=== PATIENT | female | born 1975 | race Caucasian/White ===

== ENCOUNTER → 2020-04-13 11:38 | Outpatient (BNVA) | payer OTHER, SELFPAY | PROVIDERS: PCP Internal Medicine; Visit Provider Advanced Practice Midwife | DX: Z30.42 Encounter for surveillance of injectable contraceptive (principal) | CPT/HCPCS: 96372; 99211; J1050 ==

== ENCOUNTER → 2020-04-14 13:28 | Outpatient (BNVA) | payer OTHER, SELFPAY | PROVIDERS: PCP Internal Medicine; Visit Provider Physician Assistant | DX: M77.12 Lateral epicondylitis, left elbow (principal) | CPT/HCPCS: 20551; 99202; J1020 ==

== ENCOUNTER 2020-04-26 10:41 | Outpatient (REF) | payer OTHER, SELFPAY ==
--- NOTE | 2020-04-26 10:47 | XR_ITS ---
EXAMINATION: XR HIP, LEFT CLINICAL INFORMATION: Left hip pain. COMPARISON: 03/29/2014 TECHNIQUE: 2 views of the left hip. FINDINGS: There is no evidence of acute fracture or dislocation of the left hip. Left hip joint space is maintained. No significant spurring is appreciated. No lytic or sclerotic lesions are seen involving the left femoral head. No significant sacroiliac joint abnormality is appreciated. XR/XR hip LT min 2V IMPRESSION: No significant bony abnormality of the left hip identified.
== END 2020-04-26 10:42 | disposition home or self-care (01) ==
LOC: HO.XRAY 10:41
PROVIDERS: Visit Provider Physician Assistant
DX: M25.552 Pain in left hip (principal)
CPT/HCPCS: 73502

== ENCOUNTER → 2020-05-18 13:25 | Outpatient (BNVA) | payer OTHER, SELFPAY | PROVIDERS: PCP Internal Medicine; Visit Provider Obstetrics & Gynecology | DX: Z76.89 Persons encountering health services in other specified circumstances (principal) ==

== ENCOUNTER 2020-06-24 04:53 | Emergency (ER) | payer OTHER, SELFPAY ==
[2020-06-24 05:09] VITALS: BP 138/89; PULSE 99; RESP 18; TEMP 37.1; O2SAT 98; BMI 41.5
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
[2020-06-24] MEDS: Amoxicillin/Potassium Clav 875 MG TABLET PO (05:33)
[2020-06-24 05:35] VITALS: BP 138/89; PULSE 99; RESP 18; TEMP 37.1; O2SAT 98
== END 2020-06-24 05:50 | disposition home or self-care (01) ==
PROVIDERS: Emergency Provider Student in an Organized Health Care Education/Training Program; PCP Internal Medicine
DX: S00.502A Unspecified superficial injury of oral cavity, initial encounter (principal); X58.XXXA Exposure to other specified factors, initial encounter; Y93.9 Activity, unspecified; Y92.9 Unspecified place or not applicable; Y99.9 Unspecified external cause status
CPT/HCPCS: 99283; 99284

== ENCOUNTER → 2020-07-06 11:03 | Outpatient (BNVA) | payer OTHER, SELFPAY | PROVIDERS: Visit Provider Advanced Practice Midwife | DX: Z30.42 Encounter for surveillance of injectable contraceptive (principal) | CPT/HCPCS: 96372; 99211 ==

== ENCOUNTER 2020-07-24 12:02 | Outpatient (REF) | payer OTHER, SELFPAY ==
--- NOTE | ~2020-07-24 | MM_ITS ---
EXAMINATION: MM SCREENING DIGITAL BREAST TOMOSYNTHESIS, BILATERAL CLINICAL INFORMATION: Screening. Asymptomatic. The lifetime risk of breast cancer based on the Tyrer-Cuzick Model is 9%. COMPARISON: Mammography: 07/19/2019, 05/25/2018 (baseline) TECHNIQUE: Digital breast tomosynthesis is performed in both the craniocaudal and mediolateral oblique views along with computer-aided detection (CAD). Synthesized 2D images are generated from the tomosynthesis. FINDINGS: There are scattered areas of fibroglandular density (ACR BI-RADS breast composition Category b). There are no significant masses, abnormal calcifications, or other abnormalities. Parenchymal pattern is similar to prior studies. No developing density. No significant changes. MM/MM tomosynthesis screening BI IMPRESSION: No mammographic evidence of malignancy. ASSESSMENT: BI-RADS 1: Negative RECOMMENDATION: Routine annual mammography screening. This patient's information was entered into a reminder system with a target due date for their next mammogram.
== END 2020-07-24 12:03 | disposition home or self-care (01) ==
LOC: HO.MAMMO 12:02
PROVIDERS: PCP Internal Medicine; Visit Provider Internal Medicine
DX: Z12.31 Encounter for screening mammogram for malignant neoplasm of breast (principal)
CPT/HCPCS: 77063; 77067

== ENCOUNTER 2020-07-28 09:06 | Outpatient (REF) | payer OTHER, SELFPAY ==
[2020-07-28 10:11] LABS: MANUAL DIFF FLAG NO
[2020-07-28 10:20] LABS: Basophils Percent Auto 0.1 % (0-2); Eosinophils Absolute Auto 0.2 X10*3/uL (0.0-0.4); Eosinophils Percent Auto 2.9 % (0-4); Hematocrit 43.7 % (37-47); Hemoglobin 14.4 g/dl (12.0-16.0); Imm Gran Abs Auto 0.01 X10*3/uL (0.00-0.03); Imm Gran Pct Auto 0.1 % (0.0-0.4); Lymphocytes Absolute Auto 1.8 X10*3/uL (1.2-4.9); Mean Corpuscular Hemoglobin 31.1 pg (27.0-33.0); Mean Corpuscular Volume 94.4 fL (80-98); Mean Platelet Volume 10.4 fL (9.4-12.3); Monocytes Absolute Auto 0.4 X10*3/uL (0.1-1.2); Monocytes Percent Auto 5.9 % (2-11); Platelet Count 345 X10*3/uL (160-400); Red Blood Count 4.63 X10*6/uL (4.20-5.50); Red Cell Distribution Width 13.4 % (11.0-16.0); White Blood Count 7.5 X10*3/uL (4.8-10.8)
[2020-07-28 10:46] LABS: Alanine Aminotransferase 21 U/L (0-31); Albumin Level 4.1 g/dL (3.5-5.0); Alkaline Phosphatase 71 U/L (39-117); Anion Gap 12 (12-20); Aspartate Amino Transferase 18 U/L (5-31); Blood Urea Nitrogen 15 mg/dL (9-16); Calcium 9.2 mg/dL (8.4-10.2); Carbon Dioxide 22 mmol/L (22-29); Chloride 107 mmol/L (96-108); Cholesterol 137 mg/dL; Estimated Glomerular Filt Rate 59; Glucose Random 97 mg/dL (60-115); HDL Cholesterol 40 mg/dL; LDL Cholesterol Calculated 87 mg/dl; Potassium 4.3 mmol/L (3.3-5.1); Sodium 137 mmol/L (135-145); Total Protein 7.3 g/dL (6.5-8.0); Triglycerides 54 mg/dL
[2020-07-28 10:57] LABS: Glucose Urine UA NEG (NEG); Leukocyte Esterase Urine 2+ (NEG); Nitrite Urine NEG (NEG); PH 5.5 (5.0-8.0); Specific Gravity - Urine 1.025 (1.005-1.025); Urine Blood TRACE (NEG); Urine Ketones NEG (NEG); Urine Protein NEG (NEG-TRACE)
[2020-07-28 11:00] LABS: Appearance Urine CLOUDY; Color Urine YELLOW
[2020-07-28 11:09] LABS: Thyroid Stimulating Hormone 1.59 uIU/mL (0.32-4.0); Vitamin D 25-OH Total 17.8 ng/mL (>30)
[2020-07-28 11:17] LABS: Bacteria Urine 2+ /LPF; Squamous Epithelial Cell Urine 3+ /LPF
[2020-07-28 11:21] LABS: Folate 18.1 ng/mL (> or = 4.0); Vitamin B12 612 pg/mL (200-900)
== END 2020-07-28 09:07 | disposition home or self-care (01) ==
LOC: HO.LAB 09:06
PROVIDERS: PCP Internal Medicine; Visit Provider Internal Medicine
DX: M72.2 Plantar fascial fibromatosis (principal); E66.01 Morbid (severe) obesity due to excess calories; Z68.41 Body mass index [BMI] 40.0-44.9, adult; E78.00 Pure hypercholesterolemia, unspecified
CPT/HCPCS: 36415; 80053; 80061; 81001; 82306; 82607; 82746; 84443; 85025

== ENCOUNTER → 2020-08-03 10:51 | Outpatient (BNVA) | payer OTHER, SELFPAY | PROVIDERS: PCP Internal Medicine; Visit Provider Obstetrics & Gynecology | DX: Z30.9 Encounter for contraceptive management, unspecified (principal) | CPT/HCPCS: Q3014 ==

== ENCOUNTER → 2020-09-25 09:53 | Outpatient (BNVA) | payer OTHER, SELFPAY | PROVIDERS: PCP Internal Medicine; Visit Provider Advanced Practice Midwife | DX: Z30.9 Encounter for contraceptive management, unspecified (principal) | CPT/HCPCS: 96372; 99211; J1050 ==

== ENCOUNTER → 2020-12-18 12:50 | Outpatient (BNVA) | payer OTHER, SELFPAY | PROVIDERS: PCP Internal Medicine; Visit Provider Obstetrics & Gynecology | DX: Z30.9 Encounter for contraceptive management, unspecified (principal) | CPT/HCPCS: 96372 ==

== ENCOUNTER → 2021-03-08 12:50 | Outpatient (BNVA) | payer OTHER, SELFPAY | PROVIDERS: PCP Internal Medicine; Visit Provider Obstetrics & Gynecology | DX: Z30.42 Encounter for surveillance of injectable contraceptive (principal) | CPT/HCPCS: 96372; 99211 ==

== ENCOUNTER 2021-03-14 10:00 | Outpatient (RCR) | payer OTHER, SELFPAY ==
[2021-03-07 10:09] VITALS: BP 156/70; PULSE 78; O2SAT 99
--- NOTE | 2021-03-07 10:55 | MHC.PT.EP ---
[facility] [place] Office [place] Office [place] Office [address] Christine Barrera [address] [phone] F: [phone] F: [phone] F: [phone] F: [phone] Physical Therapy Plan of Care Date of Evaluation: Date of Surgery: Diagnosis: dizziness Assessment: 45 y/o F referred to PT with dizziness. Of note, dizziness started sometime after fabricio COVID. Describes dizziness as room spinning and like on an amusement park ride spinning in a kenaitze that lasts a few minutes with (+) nausea, no vomiting. Currently able to perform ADL s but cautiously. Examination shows normal cervical AROM, normal saccades/smooth pursuit, (-) VBI, balance WNL, 23/24 DGI with use of rail on stairs, and positive for sx in L [place] but no nysatgmus seen. She was treated with Al maneuver and will f/u to re-assess for BPPV. Recommend PT 2-3x/week for 4 weeks to address BPPV and optimize functional mobility. Frequency and Duration: The patient will be seen 3x/week for 4 weeks Short Term Goals: Heel Varnisher Goals: Pt will be (-) for nystagmus of reports of vertigo in all diagnostic directions B to resolutions of BPPV in 4 weeks Tolerate position changes without complaints vertigo to improve safety and return to pre-onset level Pt to be able to functionally move in all planes without provocation of dizziness and return to PLOF in 4 weeks Pt to be educated on sx and indications to return to therapy when needed in 4 weeks Treatment Plan: Modalities to reduce pain, spasms and effusion. Manual therapy to restore motion and function. Therapeutic exercise to improve strength and flexibility. Neuromuscular re-education for posture and balance. Therapeutic activities to return to functional activities of daily living. Electronically signed by: Verna Linares PT Please sign and return to therapist. Thank you for your referral.
--- NOTE | 2021-04-17 14:58 | MHC.PT.DC ---
[facility] [place] Office [place] Office [place] Office [address] Christine Barrera [address] [phone] F: [phone] F: [phone] F: [phone] F: [phone] Physical Therapy Discharge Report Diagnosis: dizziness Date of Surgery: Date of Evaluation: 03/07/21 Date of Discharge: 04/17/21 Treatments to Date: 2 Cancellations to Date: 0 No Shows to Date: 0 Discharge Status: Achieved Goals Improved Function Discharge Summary: Pt was negative for BPPV last treatment and we kept chart open for 30 days in case of recurrence. She is now d/c Electronically signed by: Verna Linares PT Please sign and return to therapist. Thank you for your referral.
== END 2021-04-17 14:58 | disposition home or self-care (01) ==
LOC: HO.PT 10:00
PROVIDERS: PCP Internal Medicine; Visit Provider Internal Medicine
DX: R42 Dizziness and giddiness (principal)
CPT/HCPCS: 95992; 97161

== ENCOUNTER 2021-04-26 13:51 | Outpatient (REF) | payer OTHER, SELFPAY ==
[2021-04-26 14:17] LABS: MANUAL DIFF FLAG NO
[2021-04-26 14:45] LABS: Appearance Urine CLEAR; Color Urine YELLOW; Glucose Urine UA NEG (NEG); Leukocyte Esterase Urine NEG (NEG); Nitrite Urine NEG (NEG); Specific Gravity - Urine >= 1.030 (1.005-1.025); Urine Blood TRACE (NEG); Urine Ketones NEG (NEG); Urine Protein NEG (NEG-TRACE)
[2021-04-26 14:49] LABS: Basophils Percent Auto 0.2 % (0-2); Eosinophils Absolute Auto 0.1 X10*3/uL (0.0-0.4); Eosinophils Percent Auto 1.4 % (0-4); Hematocrit 45.6 % (37.0-47.0); Hemoglobin 14.7 g/dl (12.0-16.0); Imm Gran Abs Auto 0.03 X10*3/uL (0.00-0.03); Imm Gran Pct Auto 0.3 % (0.0-0.4); Lymphocytes Absolute Auto 2.8 X10*3/uL (1.2-4.9); Lymphocytes Percent Auto 31.3 % (20-40); Mean Corpuscular HGB Conc 32.2 g/dl (31.0-35.0); Mean Corpuscular Hemoglobin 30.4 pg (27.0-33.0); Mean Corpuscular Volume 94.2 fL (80.0-98.0); Mean Platelet Volume 9.9 fL (9.4-12.3); Monocytes Absolute Auto 0.6 X10*3/uL (0.1-1.2); Monocytes Percent Auto 6.4 % (2-11); Neutrophils Absolute Auto 5.5 x10*3/uL (2.0-8.3); Neutrophils Percent Auto 60.4 % (45-73); Platelet Count 365 X10*3/uL (160-400); Red Blood Count 4.84 X10*6/uL (4.20-5.50); Red Cell Distribution Width 12.7 % (11.0-16.0); White Blood Count 9.1 X10*3/uL (4.8-10.8)
[2021-04-26 15:01] LABS: WBC Urine 0-2 /HPF (0-4)
[2021-04-26 15:02] LABS: Bacteria Urine TRACE /LPF; Mucus Urine TRACE /LPF; Squamous Epithelial Cell Urine 1+ /LPF
[2021-04-26 15:09] LABS: Alanine Aminotransferase 18 U/L (0-31); Albumin Level 4.2 g/dL (3.5-5.0); Alkaline Phosphatase 82 U/L (39-117); Anion Gap 14 (12-20); Aspartate Amino Transferase 16 U/L (5-31); Blood Urea Nitrogen 14 mg/dL (9-16); Calcium 9.6 mg/dL (8.4-10.2); Carbon Dioxide 21 mmol/L (22-29); Chloride 108 mmol/L (96-108); Estimated Glomerular Filt Rate 55; Glucose Random 83 mg/dL (60-115); Potassium 3.9 mmol/L (3.3-5.1); Sodium 139 mmol/L (135-145); Total Protein 7.6 g/dL (6.5-8.0)
[2021-04-26 15:32] LABS: Free T4 (Free Thyroxine) 0.87 ng/dL (0.71-1.85); Thyroid Stimulating Hormone 1.25 uIU/mL (0.32-4.0)
[2021-04-26 15:47] LABS: Folate 13.9 ng/mL (> or = 4.0); Vitamin B12 480 pg/mL (200-900)
[2021-04-26 15:53] LABS: Erythrocyte Sedimentation Rate 13 MM/HR (0-20)
== END 2021-04-26 13:52 | disposition home or self-care (01) ==
LOC: HO.LAB 13:51
PROVIDERS: PCP Internal Medicine; Visit Provider Internal Medicine
DX: R42 Dizziness and giddiness (principal)
CPT/HCPCS: 36415; 80053; 81001; 82607; 82746; 84439; 84443; 85025; 85652

== ENCOUNTER 2021-06-08 07:10 | Outpatient (REF) | payer OTHER, SELFPAY ==
--- NOTE | ~2021-06-08 | XR_ITS ---
EXAMINATION: XR HIP, RIGHT CLINICAL INFORMATION: Pain COMPARISON: Previous left hip x-ray most recent April 2020 and right hip x-ray January 2013 TECHNIQUE: Two views of the right hip. FINDINGS: Bone alignment is normal. No fracture or dislocation is seen. There are bilateral superior lateral acetabular osteophyte. Hip joints are otherwise normal. Soft tissues are normal. XR/XR hip RT w [id number] IMPRESSION: Bilateral superior lateral acetabular osteophytes.
== END 2021-06-08 07:11 | disposition home or self-care (01) ==
LOC: HO.HOSX 07:10
PROVIDERS: Visit Provider Physician Assistant
DX: M70.61 Trochanteric bursitis, right hip (principal); M25.551 Pain in right hip; M54.16 Radiculopathy, lumbar region; M79.7 Fibromyalgia; G25.81 Restless legs syndrome; E66.9 Obesity, unspecified; E55.9 Vitamin D deficiency, unspecified; F41.8 Other specified anxiety disorders; Z68.41 Body mass index [BMI] 40.0-44.9, adult; Z88.1 Allergy status to other antibiotic agents
CPT/HCPCS: 73502; 99202; J1040

== ENCOUNTER → 2021-06-13 12:56 | Outpatient (BNVA) | payer OTHER, SELFPAY | PROVIDERS: Visit Provider Advanced Practice Midwife | DX: Z30.42 Encounter for surveillance of injectable contraceptive (principal) | CPT/HCPCS: 96372; 99211 ==

== ENCOUNTER 2021-07-04 09:14 | Outpatient (REF) | payer OTHER, SELFPAY ==
[2021-07-04 10:38] LABS: Hematocrit 43.6 % (37.0-47.0); Hemoglobin 14.3 g/dl (12.0-16.0); Mean Corpuscular HGB Conc 32.8 g/dl (31.0-35.0); Mean Corpuscular Hemoglobin 31.2 pg (27.0-33.0); Mean Corpuscular Volume 95.2 fL (80.0-98.0); Mean Platelet Volume 9.7 fL (9.4-12.3); Platelet Count 348 X10*3/uL (160-400); Red Blood Count 4.58 X10*6/uL (4.20-5.50); Red Cell Distribution Width 13.2 % (11.0-16.0); White Blood Count 8.5 X10*3/uL (4.8-10.8)
[2021-07-04 10:52] LABS: Appearance Urine CLEAR; Color Urine YELLOW; Glucose Urine UA NEG (NEG); Leukocyte Esterase Urine NEG (NEG); Nitrite Urine NEG (NEG); Specific Gravity - Urine >= 1.030 (1.005-1.025); Urine Blood TRACE (NEG); Urine Ketones NEG (NEG); Urine Protein NEG (NEG-TRACE)
[2021-07-04 11:37] LABS: HCG Quantitative < 2 mIU/mL; TSH reflex Free T4 1.67 uIU/mL (0.32-4.0)
[2021-07-04 11:39] LABS: Bacteria Urine TRACE /LPF; Mucus Urine 2+ /LPF; Squamous Epithelial Cell Urine 1+ /LPF; WBC Urine 0 /HPF (0-4)
[2021-07-04 15:36] LABS: CT PCR NOT DETECTED (Not Detect.); NG PCR NOT DETECTED (Not Detect.)
[2021-07-10 09:06] LABS: HPV 16 RNA NOT DETECTED (NOT DETECTED); HPV mRNA E6/E7 rflx Detected (Not Detected)
== END 2021-07-04 09:15 | disposition home or self-care (01) ==
LOC: HO.LAB 09:14
PROVIDERS: PCP Internal Medicine; Visit Provider Obstetrics & Gynecology
DX: Z01.411 Encounter for gynecological examination (general) (routine) with abnormal findings (principal); Z11.51 Encounter for screening for human papillomavirus (HPV); N93.9 Abnormal uterine and vaginal bleeding, unspecified
CPT/HCPCS: 36415; 81001; 84443; 84702; 85027; 87491; 87591; 87624; 87625; 88142

== ENCOUNTER → 2021-07-20 08:54 | Outpatient (BNVA) | payer OTHER, SELFPAY | PROVIDERS: PCP Internal Medicine; Visit Provider Internal Medicine | DX: M25.551 Pain in right hip (principal); M54.16 Radiculopathy, lumbar region | CPT/HCPCS: 99202 ==

== ENCOUNTER 2021-07-25 11:50 | Outpatient (REF) | payer OTHER, SELFPAY | END 2021-07-25 11:51 | disposition home or self-care (01) | LOC: HO.LAB 11:50 | PROVIDERS: Visit Provider Obstetrics & Gynecology | DX: N93.9 Abnormal uterine and vaginal bleeding, unspecified (principal) | CPT/HCPCS: 88305 ==

== ENCOUNTER 2021-07-25 11:52 | Outpatient (REF) | payer OTHER, SELFPAY ==
--- NOTE | ~2021-07-25 | MM_ITS ---
EXAMINATION: MM SCREENING DIGITAL BREAST TOMOSYNTHESIS, BILATERAL CLINICAL INFORMATION: Screening. Asymptomatic. The lifetime risk of breast cancer based on the Tyrer-Cuzick Model is 12%. COMPARISON: Mammography: 07/24/2020, 07/19/2019, 05/25/2018 (baseline). TECHNIQUE: Digital breast tomosynthesis is performed in both the craniocaudal and mediolateral oblique views along with computer-aided detection (CAD). Synthesized 2D images are generated from the tomosynthesis. FINDINGS: There are scattered areas of fibroglandular density (ACR BI-RADS breast composition Category b). There are no significant masses, abnormal calcifications, or other abnormalities. Parenchymal pattern is similar to prior exams. There are some fine fibronodular densities which are stable. There is no architectural abnormality. The axilla and skin contours are unremarkable. MM/MM tomosynthesis screening BI IMPRESSION: No mammographic evidence of malignancy. ASSESSMENT: BI-RADS 2: Benign RECOMMENDATION: Routine annual mammography screening. This patient's information was entered into a reminder system with a target due date for their next mammogram.
== END 2021-07-25 11:53 | disposition home or self-care (01) ==
LOC: HO.MAMMO 11:52
PROVIDERS: PCP Internal Medicine; Visit Provider Internal Medicine
DX: N93.9 Abnormal uterine and vaginal bleeding, unspecified (principal); Z87.891 Personal history of nicotine dependence; Z12.31 Encounter for screening mammogram for malignant neoplasm of breast
CPT/HCPCS: 58100; 77063; 77067

== ENCOUNTER 2021-07-30 11:12 | Outpatient (REF) | payer OTHER, SELFPAY ==
--- NOTE | ~2021-07-30 | US_ITS ---
EXAMINATION: US PELVIS CLINICAL INFORMATION: Abnormal uterine and vaginal bleeding. COMPARISON: None TECHNIQUE: Ultrasound of the pelvis is performed using both transabdominal and transvaginal transducers along with Doppler. Transvaginal imaging is performed due to inadequate visualization transabdominally. FINDINGS: UTERUS: The uterus is anteverted, anteflexed and measures 7.2 cm in length, 3.3 cm in AP and 3.3 cm in transverse dimension. The double wall endometrial thickness is 0.3 cm. The uterus is smooth in contour and has normal myometrial echogenicity. No visible fibroid. There are small nabothian cysts seen in the cervix. ADNEXA: Both ovaries are visualized. There is normal color flow to the adnexa. There is no ovarian torsion. There is no pelvic ascites or fluid collection. Right ovary measures 1.9 x 1.4 x 1.2 cm and volume 1.7 mL. There is avascular small anechoic cyst measuring 1.1 x 1.0 x 1.2 cm. Previously right ovary measured 2.0 x 1.1 x 1.5 cm and volume 1.6 mL. Left ovary measures 2.0 x 1.8 x 1.6 cm and volume 3.0 mL. There is anechoic simple cyst measuring 1.2 x 0.9 x 0.6 cm. Previously left ovary measured 1.7 x 1.4 x 1.6 cm and volume 2.0 mL. US/US pelvic and transvaginal IMPRESSION: Bilateral ovarian simple cysts. The uterus is unremarkable. Small nabothian cysts seen in the cervix.
== END 2021-07-30 11:13 | disposition home or self-care (01) ==
LOC: HO.US 11:12
PROVIDERS: PCP Internal Medicine; Visit Provider Obstetrics & Gynecology
DX: N93.9 Abnormal uterine and vaginal bleeding, unspecified (principal)
CPT/HCPCS: 76830; 76856

== ENCOUNTER → 2021-08-09 11:16 | Outpatient (BNVA) | payer OTHER, SELFPAY | PROVIDERS: PCP Internal Medicine; Visit Provider Obstetrics & Gynecology | DX: N93.9 Abnormal uterine and vaginal bleeding, unspecified (principal); N84.0 Polyp of corpus uteri | CPT/HCPCS: 99212 ==

== ENCOUNTER 2021-08-22 10:23 | Outpatient (REF) | payer OTHER, SELFPAY ==
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
== END 2021-08-22 10:24 | disposition home or self-care (01) ==
LOC: HO.MRI 10:23
PROVIDERS: Visit Provider Internal Medicine
DX: M25.551 Pain in right hip (principal); M16.11 Unilateral primary osteoarthritis, right hip
CPT/HCPCS: 73721

== ENCOUNTER → 2021-08-31 11:05 | Outpatient (BNVA) | payer OTHER, SELFPAY | PROVIDERS: PCP Internal Medicine; Visit Provider Advanced Practice Midwife | DX: Z30.42 Encounter for surveillance of injectable contraceptive (principal) | CPT/HCPCS: 96372; 99211 ==

== ENCOUNTER 2021-09-07 07:53 | Day surgery (SDC) | payer OTHER, SELFPAY ==
[2021-09-03 09:34] VITALS: BMI 40.2
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
--- NOTE | 2021-09-07 08:10 | MHC.SHP ---
Pre-Procedural Eval Section A Date of Service: 09/07/21 The patient is an INPATIENT: No Changes since office visit: No Cold of Flu in the past 2 weeks, No New Medical Problems, No Changes in Medication and No Patient answered all questions The History & Physical has been completed within 30 days and I have reviewed it.: Yes Section B Chief Complaint: bleeding Allergies: Allergies Allergy/AdvReac Type Severity Reaction Status Date / Time bacitracin [BACITRACIN] Allergy Mild RASH Verified 08/13/21 11:05 Plan Diagnosis/Plan: Unchanged I have reviewed the history and physical and performed a pertinent physical examination on my patient. No changes have occurred unless specified.
[2021-09-07 08:43] VITALS: BMI 39.9
[2021-09-07 08:50] VITALS: BP 141/83; PULSE 81; RESP 16; TEMP 36.8; O2SAT 99
[2021-09-07 08:52] LABS: UPreg QC Valid YES; Urine Pregnancy NEGATIVE (NEGATIVE)
--- NOTE | 2021-09-07 08:58 | MHC.SHP ---
Pre-Procedural Eval Section A Date of Service: 09/07/21 Section B Chief Complaint: bleeding Allergies: Allergies Allergy/AdvReac Type Severity Reaction Status Date / Time bacitracin [BACITRACIN] Allergy Mild RASH Verified 09/07/21 08:46 Plan I have reviewed the history and physical and performed a pertinent physical examination on my patient. No changes have occurred unless specified.
[2021-09-07] MEDS: Lactated Ringers 1,000 ML 100 ML IVCONT (09:22)
--- NOTE | 2021-09-07 11:08 | P.BOP_ITS ---
Brief Operative Note Date of Service: 09/07/21 Post-op diagnosis: same (Normal endometrial cavity) Procedure: Hysteroscopy D&C, Polypectomy Surgeon: Lion Elizondo MD Anesthesia: MAC Was an Communications Department Head used for this Procedure?: No Estimated blood loss (mL): 0 Pathology: other (Endometrial Scrapping) Condition: stable Disposition: PACU
--- NOTE | 2021-09-07 11:08 | W.PM.OPN ---
Operative Note Operative Note Date of Service: 09/07/21 Narrative: Preop Diagnosis: Abnormal uterine bleeding possible endometrial polyp Operation: Diagnostic Hysteroscopy, Dilatation & Curettage Post Op Diagnosis: Normal endometrial cavity QBL: Minimal Anesthesia: MAC Surgeon: Lion Elizondo MD Route Service Representative: None Complication: None Pathology: Endometrial Scrapings Procedure: The patient was put in the dorsal lithotomy position, scrubbed, and draped in the usual manner. A sterile speculum was inserted in the patient's vagina. The anterior lip of the cervix was grasped with a single tooth tenaculum. The cervix was dilated up to 5 mm, then the scope was inserted in the patient's uterus. Inspection revealed Normal endometrial cavity, no evidence of endometrial polyp The diagnostic scope was used; sharp curettings was carried with minimal to moderate amount of tissues from the endocervix and endometrium. At the end of the procedure, all instruments were taken out of the patient uterine and vaginal cavity. The single tooth tenaculum was removed and homeostasis was assured using pressure,. The patient tolerated the procedure well and was transferred to the PACU in a stable condition.
[2021-09-07 11:20] VITALS: BP 135/85; PULSE 77; RESP 12; TEMP 36.2; O2SAT 97
[2021-09-07 11:25] VITALS: BP 142/91; PULSE 86; RESP 16; O2SAT 94
[2021-09-07] MEDS: oxyCODONE HCl Immed Release 5 MG TABLET PO (11:25)
[2021-09-07 11:30] VITALS: BP 129/90; PULSE 82; RESP 16; O2SAT 95
[2021-09-07 11:35] VITALS: BP 148/97; PULSE 72; RESP 16; O2SAT 97
[2021-09-07 11:50] VITALS: BP 129/53; PULSE 69; RESP 16; TEMP 36.3; O2SAT 98
== END 2021-09-07 13:15 | disposition home or self-care (01) ==
PROVIDERS: Nurse Practitioner; PCP Internal Medicine; Visit Provider Obstetrics & Gynecology
PROC: 0UDB8ZZ Extraction of Endometrium, Via Natural or Artificial Opening Endoscopic (ICD-10-PCS; CPT 58558; principal; 2021-09-07 09:30)
DX: N93.9 Abnormal uterine and vaginal bleeding, unspecified (principal); N84.0 Polyp of corpus uteri; J45.909 Unspecified asthma, uncomplicated; M79.7 Fibromyalgia; F41.8 Other specified anxiety disorders; Z86.16 Personal history of COVID-19; E55.9 Vitamin D deficiency, unspecified; E66.9 Obesity, unspecified; Z68.41 Body mass index [BMI] 40.0-44.9, adult; Z87.891 Personal history of nicotine dependence
CPT/HCPCS: 58558; 81025; 88305; J1100; J2250; J2405; J3010

== ENCOUNTER → 2021-09-20 15:17 | Outpatient (BNVA) | payer OTHER, SELFPAY | PROVIDERS: Visit Provider Obstetrics & Gynecology | DX: N93.9 Abnormal uterine and vaginal bleeding, unspecified (principal) | CPT/HCPCS: Q3014 ==

== ENCOUNTER → 2021-09-24 09:28 | Outpatient (BNVA) | payer OTHER, SELFPAY | PROVIDERS: PCP Internal Medicine; Visit Provider Internal Medicine | DX: M76.01 Gluteal tendinitis, right hip (principal); S73.191D Other sprain of right hip, subsequent encounter; S76.311D Strain of muscle, fascia and tendon of the posterior muscle group at thigh level, right thigh, subsequent encounter | CPT/HCPCS: 99212 ==

== ENCOUNTER 2021-10-15 11:00 | Outpatient (RCR) | payer OTHER, SELFPAY ==
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
== END 2021-10-24 12:37 | disposition home or self-care (01) ==
LOC: HO.PT 11:00
PROVIDERS: PCP Internal Medicine; Visit Provider Internal Medicine
DX: M54.16 Radiculopathy, lumbar region (principal)
CPT/HCPCS: 97110; 97112; 97140; 97162

== ENCOUNTER → 2021-11-19 10:01 | Outpatient (BNVA) | payer OTHER, SELFPAY | PROVIDERS: PCP Internal Medicine; Visit Provider Internal Medicine | DX: S73.101A Unspecified sprain of right hip, initial encounter (principal); S76.311D Strain of muscle, fascia and tendon of the posterior muscle group at thigh level, right thigh, subsequent encounter; M76.01 Gluteal tendinitis, right hip | CPT/HCPCS: 99212 ==

== ENCOUNTER → 2021-11-29 10:52 | Outpatient (BNVA) | payer OTHER, SELFPAY | PROVIDERS: PCP Internal Medicine; Visit Provider Obstetrics & Gynecology | DX: Z30.42 Encounter for surveillance of injectable contraceptive (principal) | CPT/HCPCS: 96372; 99211 ==

== ENCOUNTER → 2022-02-20 11:00 | Outpatient (BNVA) | payer OTHER, SELFPAY | PROVIDERS: Visit Provider Obstetrics & Gynecology | DX: Z30.42 Encounter for surveillance of injectable contraceptive (principal) | CPT/HCPCS: 96372; 99211 ==

== ENCOUNTER → 2022-05-15 09:21 | Outpatient (BNVA) | payer OTHER, SELFPAY | PROVIDERS: Visit Provider Obstetrics & Gynecology | DX: Z30.42 Encounter for surveillance of injectable contraceptive (principal) | CPT/HCPCS: 96372; 99211 ==

== ENCOUNTER 2022-07-10 10:39 | Outpatient (REF) | payer OTHER, SELFPAY ==
[2022-07-11 22:03] LABS: HPV mRNA E6/E7 rflx Not Detected (Not Detected)
== END 2022-07-10 10:40 | disposition home or self-care (01) ==
LOC: HO.LNP 10:39
PROVIDERS: Visit Provider Obstetrics & Gynecology
DX: Z01.419 Encounter for gynecological examination (general) (routine) without abnormal findings (principal); Z11.51 Encounter for screening for human papillomavirus (HPV)
CPT/HCPCS: 87624; 88142

== ENCOUNTER 2022-07-31 11:27 | Outpatient (REF) | payer OTHER, SELFPAY ==
--- NOTE | ~2022-07-31 | XR_ITS ---
EXAMINATION: XR SHOULDER, RIGHT CLINICAL INFORMATION: Pain. COMPARISON: Radiographs dated 08/03/2015. TECHNIQUE: AP external rotation, Grashey, scapular Y, and axillary views of the right shoulder. FINDINGS: The bones and soft tissues are normal. No fracture. Glenohumeral and acromioclavicular alignment is anatomic with normal joint space. There is a small distal acromial undersurface osteophyte. No abnormal soft tissue calcifications. XR/XR shoulder RT min 2V IMPRESSION: 1. No fracture or dislocation is seen. 2. There is a small distal acromial undersurface osteophyte, which can be assessed with rotator cuff impingement. No jose f calcific tendinitis is seen.
--- NOTE | ~2022-07-31 | XR_ITS ---
EXAMINATION: XR KNEE, LEFT CLINICAL INFORMATION: Pain. COMPARISON: Radiographs dated 11/17/2007. TECHNIQUE: AP and lateral views of the left knee are submitted. FINDINGS: Bony alignment and mineralization are normal. The lateral, medial and patellofemoral joint space compartments are well-maintained. There is mild peripheral osteophyte formation of the medial and patellofemoral compartments. No fracture, dislocation or joint effusion is seen. There is no foreign body. XR/XR knee LT 2V IMPRESSION: There is very mild osteoarthritic change of the medial and patellofemoral joint space compartments of the left knee. This has increased from prior. No fracture, desiccation joint effusion is seen.
--- NOTE | ~2022-07-31 | MM_ITS ---
EXAMINATION: MM SCREENING DIGITAL BREAST TOMOSYNTHESIS, BILATERAL CLINICAL INFORMATION: Screening. Asymptomatic. The lifetime risk of breast cancer based on the Tyrer-Cuzick Model is 11%. COMPARISON: Mammography: 07/25/2021, 07/24/2020, 07/19/2019 TECHNIQUE: Digital breast tomosynthesis is performed in both the craniocaudal and mediolateral oblique views along with computer-aided detection (CAD). Synthesized 2D images are generated from the tomosynthesis. FINDINGS: There are scattered areas of fibroglandular density (ACR BI-RADS breast composition Category b). There are no significant masses, abnormal calcifications, or other abnormalities. Parenchymal pattern is similar to prior studies. There is no developing density or architectural abnormality. The axilla and skin contours are unremarkable. No significant changes. MM/MM tomosynthesis screening BI IMPRESSION: No mammographic evidence of malignancy. ASSESSMENT: BI-RADS 1: Negative RECOMMENDATION: Routine annual mammography screening. This patient's information was entered into a reminder system with a target due date for their next mammogram.
[2022-07-31 11:46] LABS: MANUAL DIFF FLAG NO
[2022-07-31 12:27] LABS: Basophils Percent Auto 0.1 % (0-2); Eosinophils Absolute Auto 0.2 X10*3/uL (0.0-0.4); Eosinophils Percent Auto 2.2 % (0-4); Hematocrit 42.4 % (37.0-47.0); Imm Gran Abs Auto 0.03 X10*3/uL (0.00-0.03); Imm Gran Pct Auto 0.4 % (0.0-0.4); Lymphocytes Absolute Auto 2.1 X10*3/uL (1.2-4.9); Lymphocytes Percent Auto 28.6 % (20-40); Mean Corpuscular Hemoglobin 31.3 pg (27.0-33.0); Mean Corpuscular Volume 94.9 fL (80.0-98.0); Mean Platelet Volume 10.2 fL (9.4-12.3); Monocytes Absolute Auto 0.4 X10*3/uL (0.1-1.2); Monocytes Percent Auto 5.8 % (2-11); Neutrophils Absolute Auto 4.7 x10*3/uL (2.0-8.3); Neutrophils Percent Auto 62.9 % (45-73); Platelet Count 335 X10*3/uL (160-400); Red Blood Count 4.47 X10*6/uL (4.20-5.50); Red Cell Distribution Width 13.2 % (11.0-16.0); White Blood Count 7.4 X10*3/uL (4.8-10.8)
[2022-07-31 12:55] LABS: Estimated Average Glucose 111 mg/dL; Hemoglobin A1c % 5.5 %
[2022-07-31 14:45] LABS: Alanine Aminotransferase 9 U/L (0-31); Albumin Level 3.8 g/dL (3.5-5.0); Alkaline Phosphatase 78 U/L (39-117); Anion Gap 13 (12-20); Aspartate Amino Transferase 11 U/L (5-31); Bilirubin Total 0.9 mg/dL (0.0-1.0); Blood Urea Nitrogen 13 mg/dL (9-16); Calcium 9.1 mg/dL (8.4-10.2); Carbon Dioxide 21 mmol/L (22-29); Chloride 110 mmol/L (96-108); Cholesterol 148 mg/dL; Estimated Glomerular Filt Rate 54; Glucose Random 88 mg/dL (60-115); HDL Cholesterol 40 mg/dL; LDL Cholesterol Calculated 100 mg/dl; Potassium 4.1 mmol/L (3.3-5.1); Sodium 140 mmol/L (135-145); Total Protein 6.7 g/dL (6.5-8.0); Triglycerides 44 mg/dL
[2022-07-31 15:10] LABS: Folate 8.2 ng/mL (> or = 4.0); Vitamin D 25-OH Total 15.6 ng/mL (>30)
[2022-08-01 06:44] LABS: Vitamin B12 291 pg/mL (200-900)
== END 2022-07-31 11:28 | disposition home or self-care (01) ==
LOC: HO.MAMMO 11:27
PROVIDERS: PCP Internal Medicine; Visit Provider Internal Medicine
DX: Z12.31 Encounter for screening mammogram for malignant neoplasm of breast (principal); M25.511 Pain in right shoulder; M25.562 Pain in left knee; K21.9 Gastro-esophageal reflux disease without esophagitis; E78.00 Pure hypercholesterolemia, unspecified; E66.9 Obesity, unspecified; E55.9 Vitamin D deficiency, unspecified
CPT/HCPCS: 36415; 73030; 73560; 77063; 77067; 80053; 80061; 82306; 82607; 82746; 83036; 84439; 84443; 85025

== ENCOUNTER → 2022-08-06 14:55 | Outpatient (BNVA) | payer OTHER, SELFPAY | PROVIDERS: PCP Internal Medicine; Visit Provider Obstetrics & Gynecology | DX: Z30.42 Encounter for surveillance of injectable contraceptive (principal) | CPT/HCPCS: 96372; 99211 ==

== ENCOUNTER → 2022-11-05 08:59 | Outpatient (BNVA) | payer OTHER, SELFPAY | PROVIDERS: PCP Internal Medicine; Visit Provider Obstetrics & Gynecology | DX: Z30.42 Encounter for surveillance of injectable contraceptive (principal) | CPT/HCPCS: 96372; 99211 ==

== ENCOUNTER 2022-12-24 18:42 | Emergency (ER) | payer OTHER, SELFPAY ==
--- NOTE | 2022-12-24 18:46 | ECG_ITS ---
Test Reason : SHORTNESS OF BREATH Blood Pressure : / mmHG Vent. Rate : 085 BPM Atrial Rate : 085 BPM P-R Int : 120 ms QRS Dur : 074 ms QT Int : 350 ms P-R-T Axes : 059 056 037 degrees QTc Int : 416 ms Normal sinus rhythm Normal ECG No previous ECGs available Referred By: Contreras De Leon Electronically Signed By:VERONICA JUDD
[2022-12-24 18:57] VITALS: BP 144/87; PULSE 103; RESP 18; TEMP 36.8; O2SAT 100; BMI 40.8
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
[2022-12-24 20:22] LABS: MANUAL DIFF FLAG NO
[2022-12-24 20:35] LABS: Basophils Percent Auto 0.2 % (0-2); Eosinophils Absolute Auto 0.3 X10*3/uL (0.0-0.4); Eosinophils Percent Auto 2.3 % (0-4); Hematocrit 46.2 % (37.0-47.0); Hemoglobin 15.1 g/dl (12.0-16.0); Imm Gran Abs Auto 0.03 X10*3/uL (0.00-0.03); Imm Gran Pct Auto 0.2 % (0.0-0.4); Lymphocytes Absolute Auto 2.6 X10*3/uL (1.2-4.9); Lymphocytes Percent Auto 21.1 % (20-40); Mean Corpuscular HGB Conc 32.7 g/dl (31.0-35.0); Mean Corpuscular Hemoglobin 30.8 pg (27.0-33.0); Mean Corpuscular Volume 94.1 fL (80.0-98.0); Mean Platelet Volume 9.6 fL (9.4-12.3); Monocytes Absolute Auto 0.6 X10*3/uL (0.1-1.2); Monocytes Percent Auto 5.1 % (2-11); Neutrophils Absolute Auto 8.9 x10*3/uL (2.0-8.3); Neutrophils Percent Auto 71.1 % (45-73); Platelet Count 357 X10*3/uL (160-400); Red Blood Count 4.91 X10*6/uL (4.20-5.50); Red Cell Distribution Width 13.4 % (11.0-16.0); White Blood Count 12.5 X10*3/uL (4.8-10.8)
[2022-12-24 20:41] LABS: Alanine Aminotransferase 13 U/L (0-31); Albumin Level 4.4 g/dL (3.5-5.0); Alkaline Phosphatase 77 U/L (39-117); Anion Gap 14 (12-20); Aspartate Amino Transferase 14 U/L (5-31); Bilirubin Total 0.6 mg/dL (0.0-1.0); Blood Urea Nitrogen 18 mg/dL (9-16); Calcium 9.7 mg/dL (8.4-10.2); Carbon Dioxide 22 mmol/L (22-29); Chloride 108 mmol/L (96-108); Creatinine Clr Calc Pharmacy 62.7; Estimated Glomerular Filt Rate 46; Glucose Random 105 mg/dL (60-115); Lipase 18 U/L (8-78); Magnesium 2.1 mg/dL (1.6-2.6); Potassium 3.6 mmol/L (3.3-5.1); Sodium 140 mmol/L (135-145); Total Protein 8.2 g/dL (6.5-8.0)
[2022-12-24 20:49] LABS: Troponin-I High Sensitivity < 2.7 ng/L (<3.5-17.0)
[2022-12-24 20:56] LABS: D Dimer High Sensitivity < 150 NG/ML
[2022-12-25 00:31] VITALS: BP 135/78; PULSE 83; RESP 12; TEMP 37.1; O2SAT 98
[2022-12-25 00:45] LABS: Appearance Urine Clear; Color Urine Yellow; Glucose Urine UA Negative (Negative); Leukocyte Esterase Urine Trace (Negative); Nitrite Urine Negative (Negative); PH 5.5 (5.0-9.0); Specific Gravity - Urine >= 1.030 (1.005-1.025); UMIC TRIGGER UACC YES; Urine Blood Negative (Negative); Urine Ketones Trace mg/dL (Negative); Urine Protein Negative (Neg-Trace)
[2022-12-25 00:46] LABS: UPreg QC Valid YES; Urine Pregnancy NEGATIVE (NEGATIVE)
[2022-12-25 00:50] LABS: Bacteria Urine None Seen (None Seen); Hyaline Casts Urine 0-2 /LPF (0-2); RBC Urine 0-2 /HPF (0-2); WBC Urine 0-5 /HPF (0-5)
[2022-12-25] MEDS: Acetaminophen 325 MG TABLET 975 MG PO (01:12)
[2022-12-25] MEDS: dexAMETHasone 2 MG TABLET 10 MG PO (01:12)
== END 2022-12-25 01:35 | disposition home or self-care (01) ==
PROVIDERS: Physician Assistant; Emergency Provider Emergency Medicine; PCP Internal Medicine
DX: M54.6 Pain in thoracic spine (principal); R06.02 Shortness of breath; Z87.891 Personal history of nicotine dependence; E66.9 Obesity, unspecified; Z68.41 Body mass index [BMI] 40.0-44.9, adult
CPT/HCPCS: 36415; 80053; 81001; 81025; 83690; 83735; 84484; 85025; 85379; 93005; 99283; 99285; J8540

== ENCOUNTER 2023-01-05 07:16 | Emergency (ER) | payer OTHER, SELFPAY ==
[2023-01-05 07:47] VITALS: BP 133/70; PULSE 90; RESP 18; TEMP 37.2; O2SAT 96; BMI 42.2
--- NOTE | 2023-01-05 07:50 | PC.NURSE ---
Patient arrived from home with complaints of facial swelling and pain that started x3 days ago. States unable to fully open mouth and believes her upper left wisdom tooth may be infected
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
[2023-01-05 08:04] LABS: MANUAL DIFF FLAG NO
[2023-01-05 08:15] LABS: Basophils Percent Auto 0.2 % (0-2); Eosinophils Absolute Auto 0.4 X10*3/uL (0.0-0.4); Hematocrit 41.8 % (37.0-47.0); Imm Gran Abs Auto 0.07 X10*3/uL (0.00-0.03); Imm Gran Pct Auto 0.6 % (0.0-0.4); Lymphocytes Absolute Auto 2.3 X10*3/uL (1.2-4.9); Lymphocytes Percent Auto 19.5 % (20-40); Mean Corpuscular HGB Conc 33.5 g/dl (31.0-35.0); Mean Corpuscular Hemoglobin 31.7 pg (27.0-33.0); Mean Corpuscular Volume 94.6 fL (80.0-98.0); Mean Platelet Volume 8.8 fL (9.4-12.3); Monocytes Absolute Auto 0.8 X10*3/uL (0.1-1.2); Monocytes Percent Auto 7.1 % (2-11); Neutrophils Absolute Auto 8.2 x10*3/uL (2.0-8.3); Neutrophils Percent Auto 69.6 % (45-73); Platelet Count 324 X10*3/uL (160-400); Red Blood Count 4.42 X10*6/uL (4.20-5.50); Red Cell Distribution Width 13.9 % (11.0-16.0); White Blood Count 11.7 X10*3/uL (4.8-10.8)
[2023-01-05 08:25] LABS: Alanine Aminotransferase 29 U/L (0-31); Albumin Level 3.9 g/dL (3.5-5.0); Alkaline Phosphatase 64 U/L (39-117); Anion Gap 12 (12-20); Aspartate Amino Transferase 17 U/L (5-31); Bilirubin Total 0.8 mg/dL (0.0-1.0); Blood Urea Nitrogen 19 mg/dL (9-16); Calcium 9.6 mg/dL (8.4-10.2); Carbon Dioxide 19 mmol/L (22-29); Chloride 111 mmol/L (96-108); Creatinine Clr Calc Pharmacy 86.7; Estimated Glomerular Filt Rate > 60; Glucose Random 113 mg/dL (60-115); Sodium 138 mmol/L (135-145); Total Protein 7.3 g/dL (6.5-8.0)
[2023-01-05 08:58] LABS: Influenza A PCR NEGATIVE (Negative); Influenza B PCR NEGATIVE (Negative); Resp Syncy Virus RNA Qual PCR NEGATIVE (Negative); SARS COV2 PCR INHOUSE NEGATIVE (Negative)
--- NOTE | 2023-01-05 10:11 | PC.NURSE ---
Discharge plan reviewed with patient who verbalized understanding
[2023-01-05 10:18] LABS: Strep A Nucleic Acid Negative (Negative)
== END 2023-01-05 10:12 | disposition home or self-care (01) ==
PROVIDERS: Emergency Provider Emergency Medicine; PCP Internal Medicine
DX: R22.0 Localized swelling, mass and lump, head (principal); Z20.822 Contact with and (suspected) exposure to COVID-19; Z20.828 Contact with and (suspected) exposure to other viral communicable diseases
CPT/HCPCS: 0241U; 80053; 85025; 87651; 99283; 99284

== ENCOUNTER 2023-01-23 10:01 | Outpatient (AMB) | payer OTHER, SELFPAY ==
[2023-01-23 10:22] VITALS: BP 124/80; PULSE 80; O2SAT 98; BMI 41.1
--- NOTE | 2023-01-23 10:22 | A.OFFPC_ITS ---
Vital Signs 01/23/23 10:22 Height 5 ft 2 in Weight 225 lb BMI 41.1 BP 124/80 Blood Pressure Location Lt brachial Position Sitting Pulse 80 Pulse Source Pulse Oximeter Pulse Oximetry (%) 98 Oxygen Delivery Method Room Air Intake Visit Reasons: PE Allergies bacitracin [BACITRACIN] Allergy (Mild, Verified 01/23/23 10:23) RASH Medication List - Last Reconciled 01/23/23 by Connie Young MD albuterol sulfate 90 mcg/actuation 2 puffs PO Q4-6H PRN amitriptyline 25 mg PO BEDTIME 90 days ascorbate calcium (vitamin C) 500 mg PO DAILY cholecalciferol (vitamin D3) 25 mcg PO DAILY clonidine HCl 0.1 mg PO TID PRN 90 days cyanocobalamin (vitamin B-12) 1,000 mcg PO DAILY folic acid 1 mg PO DAILY lamotrigine 50 mg (2 x 25 mg) PO BID 90 days medroxyprogesterone (Depo-Provera) 150 mg IM [id number] meloxicam 15 mg PO DAILY omeprazole 20 mg PO DAILY pregabalin (Lyrica) 25 mg PO BID ropinirole 0.25 mg PO BEDTIME sennosides-docusate sodium 8.6-50 mg (Senna-S) 2 tab-caps (2 x 8.6-50 mg) PO BEDTIME 30 days Tobacco use date assessed: 07/30/22 Dental Screening Dental Screen Date: 01/23/23 Did you have a dental visit in the last 12 months?: Yes Did you have a dental problem in the last 6 months where you did not have access to dental care?: No Was dental information given to patient?: Patient has dentist HPI PE HPI Details 47-year-old morbidly obese female with g eneralized anxiety disorder GERD asthma coming in for physical exam last seen in July 2022 had knee and shoulder pain x-ray was requested. Patient is due for mammogram. Did not recently noted January 05 ER visit for left facial swelling diagnosis of cellulitis and antibiotic was prescribed. Had some back pain also and was prescribed steroids.. L face swelling with teeth infection but has not gone to dentist. occ cough. tired , occ tired after eating sleepy at driving. [facility] Medical History Asthma COVID-19 Fibromyalgia HPV (human papilloma virus) infection Obesity Restless leg syndrome Vitamin D deficiency Surgical History History of dilatation and curettage History of toe surgery Family History (Updated 01/23/23 @ 10:24 by Ann Dinh CMA) Father Diabetes Hypertension Cancer CVD (cardiovascular disease) Mother Cancer Diabetes CVD (cardiovascular disease) Maternal Grandmother Lung cancer Maternal Grandfather Gastric cancer Paternal Grandmother Ovarian cancer Paternal Grandfather Esophageal cancer Maternal Aunt Breast cancer Maternal Uncle Colon cancer Sister Bipolar 1 disorder Mental health disorder Social History (Updated 01/23/23 @ 11:05 by Connie Young MD) Household Members: Children Housing: House Alcohol intake: never Patient Tobacco Use Status: Former Tobacco user Quit Date: 2009 Tobacco use type: Cigarette Years Smoked: 2004 stopped e-Cigarette/Vaping Use: Never Used Second Hand Smoke Exposure: Yes service: No Current occupational status: unemployed 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 1. Little interest or pleasure in doing things: several days 2. Feeling down, depressed, or hopeless: nearly every day 3. Trouble falling or staying asleep, or sleeping too much: nearly every day 4. Feeling tired or having little energy: nearly every day 5. Poor appetite or overeating: several days 6. Feeling bad about yourself - or that you are a failure or have let yourself or your family down: nearly every day 7. Trouble concentrating on things, such as reading the newspaper or watching television: nearly every day 8. Moving or speaking so slowly that other people could have noticed. Or the opposite - being so fidgety or restless that you have been moving around a lot more than usual: not at all 9. Thoughts that you would be better off or of hurting yourself in some way: not at all Total score: 17 Depression Screening Interpretation: Positive Source: Developed by Drs. Christian Raymond, Jennifer Liang, Pete Martinez and colleagues, with an educational chet from [employer]. Thrive Questionnaire Date Thrive assessed: 01/23/23 I am a: Patient What is your living situation today?: I have a steady place to live Within the past 12 months, did the food you bought not last and you didn't have the money to get more?: Never true Within the past 12 months, did you worry whether your food would run out before you got money to buy more?: Never true Do you have trouble paying for medicines?: No Do you have trouble getting transportation to medical appointments?: No Do you have trouble paying your heating and electricity bill?: No Do you have trouble taking care of your child, family member or friend?: No Do you have trouble with day-to-day activities such as bathing, preparing meals, shopping, managing finances, etc.?: No Are you currently unemployed and looking for a job?: No Are you interested in more education?: No Currently or been in a relationship where the following occur: no concerns reported AUDIT C Alcohol Use Questionnaire (AUDIT-C) 1. How often do you have a drink containing alcohol?: Never 2. How many drinks containing alcohol do you have on a typical day when you are drinking?: 1 or 2 (0) 3. How often do you have six or more drinks on one occasion?: Never Total Score: 0 SAMANTHA-7 AMB Questionnaire SAMANTHA-7 Date SAMANTHA - 7 assessed: 01/23/23 Feeling nervous, anxious, or on edge: 1 = Several days Not being able to stop or control worryin = Several days Worrying too much about different things: 1 = Several days Trouble relaxin = Not at all Being so restless that it is hard to sit still: 0 = Not at all Becoming easily annoyed or irritable: 0 = Not at all Feeling afraid as if something awful might happen: 0 = Not at all Total SAMANTHA-7 score (0-4 normal; 5-9 mild; 10-14 moderate; 15-21 severe): 3 Source: Developed by Drs. Christian Raymond, Jennifer Liang, Pete Martinez and colleagues, with an educational chet from [employer]. Review of Systems Const Denies poor appetite and Denies weakness Eyes Denies no additional complaints ENT Reports Normal hearing present, Denies dizziness, Denies nasal congestion, Denies tinnitus and Denies sore throat Card Denies chest pain, Denies syncope, Denies rapid heart rate and Denies dyspnea Resp Denies cough and Denies dyspnea GI Denies change in stool character, Reports constipation, Denies diarrhea, Denies nausea and Denies vomiting Denies urinary frequency, Denies difficulty voiding and Denies dysuria Neuro Reports Normal hearing present, Denies confusion, Denies dizziness, Denies syncope and Denies weakness Psych Denies confusion Physical exam (Primary Care) Vital Signs: Last Vital Signs Pulse 80 01/23/23 10:22 BP 124/80 01/23/23 10:22 Pulse Ox 98 01/23/23 10:22 Oxygen Delivery Method Room Air 01/23/23 10:22 BMI result Body Mass Index 41.1 Tobacco/Smoking Status: Tobacco use Status Tobacco use date assessed 07/30/22 01/23/23 10:34 Patient Tobacco Use Status Former Tobacco user 01/23/23 10:34 Tobacco use type Cigarette 01/23/23 10:34 e-Cigarette/Vaping Use Never Used 01/23/23 10:34 PHQ-9: PHQ-9 Score PHQ-9: Total score 17 01/23/23 10:34 Depression Screening Interpretation: Positive Thrive Assessment: Date of Thrive Assessment Date Thrive assessed 01/23/23 01/23/23 10:34 Currently or been in a relationship where the following occur: no concerns reported Const General: No confusion Orientation/consciousness: No confusion HENMT Head: Yes normocephalic Ears: external ears normal and TM's normal bilaterally Face and sinus: Yes normal facial exam Mouth: moist mucous membranes Throat: Yes tonsils normal Eyes Conjunctivae: conjunctivae normal Pupils: Equal, round and reactive pupils present and Pupil accommodation reflex normal Direct Ophthalmoscopy: normal light reflex Neck Neck: No lymphadenopathy Thyroid: Thyroid normal Chest Chest palpation & inspection: normal inspection of the chest Resp Effort & Inspection: normal respiratory effort and no audible wheezes Auscultation: clear to auscultation bilaterally, no crackles, no wheezes and lung sounds not diminished Cardio Rate: regular rate Rhythm: regular rhythm Peripheral pulses: radial pulses present and dorsalis pedis present GI Palpation (GI): no masses Auscultation: normal bowel sounds and normoactive bowel sounds Rectal Exam - Female: deferred Skin General skin exam: no rashes or lesions noted Rashes: no rashes Neuro General: No confusion Cranial nerves: Yes Equal, round and reactive pupils present and Yes Normal hearing present Cognition (Neuro): normal cognition Gait exam (Neuro): Normal gait present Motor exam (neuro): 5/5 motor strength present throughout Deep tendon reflexes (DTR's): Right brachioradialis reflex intensity grade: 2+, Left brachioradialis reflex intensity grade: 2+, Right patellar reflex intensity grade: 2+ and Left patellar reflex intensity grade: 2+ Extrem General: No edema Assessment and Plan Assessment & Plan (1) Annual physical exam: Code(s): Z00.00 - Encounter for general adult medical examination without abnormal findings (2) Colon cancer screening: Code(s): Z12.11 - Encounter for screening for malignant neoplasm of colon Plan: Reminded (3) Generalized anxiety disorder: Comment: [facility] 2 weeks Code(s): F41.1 - Generalized anxiety disorder Plan: Continue with counseling and therapy (4) GERD (gastroesophageal reflux disease): Code(s): K21.9 - Gastro-esophageal reflux disease without esophagitis Qualifiers: Esophagitis presence: without esophagitis Qualified Code(s): K21.9 - Gastro-esophageal reflux disease without esophagitis Plan: Avoid the foods that causes that usually spicy foods, tomato products, juices, coffee, soda and foods that your sensitive to. After eating do not lie down, allow 3-4 hours before in lie down. And keep the head of bed above 30 degrees to avoid the acid from going up. (5) Obesity: Code(s): E66.9 - Obesity, unspecified Qualifiers: Obesity type: due to excess calories Obesity classification: adult class 3 (BMI >= 40) Serious obesity comorbidity presence: without serious comorbidity Body mass index: BMI 40.0-44.9 Qualified Code(s): E66.01 - Morbid (severe) obesity due to excess calories; Z68.41 - Body mass index [BMI]40.0- 44.9, adult (6) Asthma: Code(s): J45.909 - Unspecified asthma, uncomplicated Qualifiers: Asthma severity: mild Asthma persistence: intermittent Asthma complication type: uncomplicated Qualified Code(s): J45.20 - Mild intermittent asthma, uncomplicated Plan: Continue with the inhaler as needed (7) Impaired glucose tolerance: Code(s): R73.02 - Impaired glucose tolerance (oral) Plan: Decrease the amount of carbohydrate intake, pasta, bread, rice and potatoes are all sugar and that is aside from all the sweet stuff, remember that fruits are good but they are Sweet also. (8) Colonoscopy refused: Code(s): Z53.20 - Procedure and treatment not carried out because of patient's decision for unspecified reasons (9) Hypersomnia: Code(s): G47.10 - Hypersomnia, unspecified (10) RUQ abdominal pain: Code(s): R10.11 - Right upper quadrant pain Orders: Orders RT home sleep study Today G47.10 - Hypersomnia, unspecified US abdomen complete Today R10.11 - Right upper quadrant pain, R79.89 - Other specified abnormal findings of blood chemistry Coding Level of Care Code Est Pt Prev Care 40-64y(76146) Diagnoses Annual physical exam Z00.00 Colon cancer screening Z12.11 Generalized anxiety disorder F41.1 Gastroesophageal reflux disease without esophagitis K21.9 Esophagitis presence: without esophagitis Class 3 severe obesity due to excess calories without serious comorbidity with body mass index (BMI) of 40.0 to 44.9 in adult E66.01; Z68.41 Obesity type: due to excess calories Obesity classification: adult class 3 (BMI >= 40) Serious obesity comorbidity presence: without serious comorbidity Body mass index: BMI 40.0-44.9 Mild intermittent asthma without complication J45.20 Asthma severity: mild Asthma persistence: intermittent Asthma complication type: uncomplicated Impaired glucose tolerance R73.02 Colonoscopy refused Z53.20 Hypersomnia G47.10 RUQ abdominal pain R10.11
== END 2023-01-23 11:17 | disposition home or self-care (01) ==
PROVIDERS: Visit Provider Internal Medicine
DX: Z00.00 Encounter for general adult medical examination without abnormal findings (principal); K21.9 Gastro-esophageal reflux disease without esophagitis; E66.01 Morbid (severe) obesity due to excess calories; Z68.41 Body mass index [BMI] 40.0-44.9, adult; J45.20 Mild intermittent asthma, uncomplicated; F41.1 Generalized anxiety disorder; R73.02 Impaired glucose tolerance (oral); Z53.20 Procedure and treatment not carried out because of patient's decision for unspecified reasons; G47.10 Hypersomnia, unspecified; R10.11 Right upper quadrant pain
CPT/HCPCS: 99396

== ENCOUNTER 2023-01-29 15:10 | Outpatient (AMB) | payer OTHER, SELFPAY ==
[2023-01-29 15:37] VITALS: BMI 34.4
--- NOTE | 2023-01-29 15:37 | AM.OFFVISNUR ---
Intake Vital Signs 01/29/23 15:37 Height 5 ft 2 in Weight 85.332 kg BMI 34.4 Intake Visit Reasons: DEPO Allergies bacitracin [BACITRACIN] Allergy (Mild, Verified 01/23/23 10:23) RASH Nursing Note Denita is here for her scheduled Depo-Provera inj today. 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 Office Procedures Depo Questionnaire If YES to any of the following questions, please consult a provider. Date of last injection: 11/05/22 Date of last gynecology exam: 07/10/22 Menstrual pattern since last injection has been: Not Applicable Irregular bleeding?: No Breast lumps or other breast changes?: No Changes in weight or appetite?: No Depression or changes in mood?: No Abnormal hair growth or loss?: No Skin problems (rash, acne, discoloration)?: No Pain at the injection site?: No Headaches?: No Nervousness?: No Abdominal pain or cramping?: No Dizziness or nausea?: No Fatigue or weakness?: No Decrease in sexual drive?: No Chest pain or shortness of breath?: No Swelling in arms or legs?: No Form completed by?: Rah Bartlett LPN Office Meds Depo-Provera 150 mg/mL intramuscular syringe Performing Provider: Elaina Shah CNM [place] [facility] Administered by: Khushbu Bartlett LPN on 01/29/23 15:40 Dose Route Admin Location Dispensed Lot Number Expiration Date [facility] 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
== END 2023-01-29 15:36 | disposition home or self-care (01) ==
PROVIDERS: PCP Internal Medicine; Visit Provider Advanced Practice Midwife
DX: Z30.42 Encounter for surveillance of injectable contraceptive (principal)

== ENCOUNTER → 2023-01-29 15:10 | Outpatient (BNVA) | payer OTHER, SELFPAY | PROVIDERS: PCP Internal Medicine; Visit Provider Advanced Practice Midwife | DX: Z30.42 Encounter for surveillance of injectable contraceptive (principal) | CPT/HCPCS: 96372; 99211; J1050 ==

== ENCOUNTER 2023-02-04 08:53 | Outpatient (REF) | payer OTHER, SELFPAY ==
--- NOTE | ~2023-02-04 | US_ITS ---
EXAMINATION: US ABDOMEN COMPLETE CLINICAL INFORMATION: Other specified abnormal findings of blood chemistry. COMPARISON: CT abdomen and pelvis 12/27/2016. Ultrasound abdomen 12/29/2015 and 08/16/2014. TECHNIQUE: Real-time imaging of the abdominal viscera. FINDINGS: PANCREAS: Normal. ABDOMINAL AORTA: The proximal, mid, and distal segments are normal in caliber. INFERIOR VENA CAVA: Visualized portions are normal. LIVER: Normal. The liver is normal in size. The liver contour is normal. Parenchymal echogenicity is normal. No focal hepatic lesion. There is no intrahepatic biliary duct dilatation seen. GALLBLADDER: Normal. The gallbladder is physiologically distended without evidence of stones, sludge, polyps, wall thickening or pericholecystic fluid. COMMON BILE DUCT: Normal in caliber measuring 0.3 cm in diameter. RIGHT KIDNEY: Normal. No hydronephrosis. No renal calculi or focal parenchymal lesions. The kidney measures 9.0 cm in maximum dimension. LEFT KIDNEY: Normal. No hydronephrosis. No renal calculi or focal parenchymal lesions. The kidney measures 9.6 cm in maximum dimension. SPLEEN: Normal. The spleen measures 8.0 cm in maximum dimension. FREE FLUID: None. US/US abdomen complete IMPRESSION: Normal abdominal ultrasound.
== END 2023-02-04 08:54 | disposition home or self-care (01) ==
LOC: HO.US 08:53
PROVIDERS: PCP Internal Medicine; Visit Provider Internal Medicine
DX: R79.89 Other specified abnormal findings of blood chemistry (principal); R10.11 Right upper quadrant pain
CPT/HCPCS: 76700

== ENCOUNTER 2023-02-07 08:47 | Outpatient (AMB) | payer OTHER, SELFPAY ==
--- NOTE | 2023-02-07 08:51 | MHC.OFFVIS ---
Intake Vital Signs 02/07/23 08:53 Height 5 ft 2 in Weight 224 lb 13.944 oz BMI 41.1 BP 112/78 Blood Pressure Location Rt brachial Position Sitting Pulse 93 Pulse Source Pulse Oximeter Temp 98.7 F Temp Source Skin Pulse Oximetry (%) 99 Oxygen Delivery Method Room Air Intake Visit Reasons: Fibromyalgia Intake Note: New patient presenting today for fibromyalgia. 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 Required: No Accompanied by: Self / Same As Patient Allergies bacitracin [BACITRACIN] Allergy (Mild, Verified 02/07/23 08:51) RASH Medication List - Last Reconciled 02/07/23 by Javier Kuo MD albuterol sulfate 90 mcg/actuation 2 puffs PO Q4-6H PRN amitriptyline 25 mg PO BEDTIME 90 days ascorbate calcium (vitamin C) 500 mg PO DAILY cholecalciferol (vitamin D3) 25 mcg PO DAILY clonidine HCl 0.1 mg PO TID PRN 90 days cyanocobalamin (vitamin B-12) 1,000 mcg PO DAILY folic acid 1 mg PO DAILY lamotrigine 50 mg (2 x 25 mg) PO BID 90 days medroxyprogesterone (Depo-Provera) 150 mg IM [id number] omeprazole 20 mg PO DAILY ropinirole 0.25 mg PO BEDTIME sennosides-docusate sodium 8.6-50 mg (Senna-S) 2 tab-caps (2 x 8.6-50 mg) PO BEDTIME 30 days HPI HPI Comments History of Present Illness Details This is a 47-year-old female a past medical history of fibromyalgia who presents for evaluation of multiple joint pain. Patient stated that about 7 months ago she started having left knee pain. Worse with going up and down the stairs, worse at night. She also states that she has right shoulder pain and stiffness. She did physical therapy for rotator cuff tendinopathy for her shoulder 7 years ago. [facility] Medical History HPV (human papilloma virus) infection COVID-19 Restless leg syndrome Fibromyalgia Vitamin D deficiency Obesity Asthma Surgical History History of dilatation and curettage History of toe surgery Family History Father Diabetes Hypertension Cancer CVD (cardiovascular disease) Mother Cancer Diabetes CVD (cardiovascular disease) Maternal Grandmother Lung cancer Maternal Grandfather Gastric cancer Paternal Grandmother Ovarian cancer Paternal Grandfather Esophageal cancer Maternal Aunt Breast cancer Maternal Uncle Colon cancer Sister Bipolar 1 disorder Mental health disorder Other Arthritis Social History Household Members: Children Housing: House 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 you 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: Yes Alcohol intake: never Patient Tobacco Use Status: Former Tobacco user Quit Date: 2009 Tobacco use type: Cigarette Years Smoked: 2004 stopped e-Cigarette/Vaping Use: Never Used Second Hand Smoke Exposure: Yes service: No Current occupational status: employed 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 Sexual orientation: Straight/Heterosexual Cognitive needs: No Hearing needs: No Vision needs: Yes Female Reproductive History Menstrual Age of Menarche: 13 Total pregnancies: 4 Ab spontaneous: 2 Review of Systems Const Reports headache(s) ENT Reports dizziness, Reports dry mouth and Reports headache(s) Card Reports dyspnea Resp Reports cough, Reports dyspnea and Reports wheezing Musc Reports arthralgias and Reports limited range of motion Skin/Breast Reports alopecia and Reports unusual bruising Neuro Reports dizziness, Reports headache(s) and Reports memory loss Psych Reports abnormal sleep pattern, Reports anxiety, Reports depression and Reports memory loss Aller/Immun Reports wheezing Physical Exam Vital Signs: Last Vital Signs Temp 98.7 F 02/07/23 08:53 Pulse 93 02/07/23 08:53 BP 112/78 02/07/23 08:53 Pulse Ox 99 02/07/23 08:53 Oxygen Delivery Method Room Air 02/07/23 08:53 BMI result Body Mass Index 41.1 Const General: cooperative, healthy appearing and comfortable Nutritional Appearance: obese morbidly obese Orientation/consciousness: patient oriented x3 Limitations: no limitations HEENT Head: Yes normocephalic and Yes atraumatic Mouth: moist mucous membranes Resp Effort & Inspection: normal respiratory effort and able to speak in complete sentences Auscultation: clear to auscultation bilaterally Cardio Rate: regular rate Rhythm: regular rhythm Skin General skin exam: no rashes or lesions noted Neuro General: patient oriented x3 Extrem Other: Positive empty can test right shoulder Right knee warmth Equivocal Radha's test left knee Pain with manipulation of left knee Results Reviewed Results Reviewed: XR/XR shoulder RT min 2V IMPRESSION: ? 1. No fracture or dislocation is seen. ? 2. There is a small distal acromial undersurface osteophyte, which can be assessed with rotator cuff impingement. No jose f calcific tendinitis is seen. XR/XR knee LT 2V IMPRESSION: There is very mild osteoarthritic change of the medial and patellofemoral joint space compartments of the left knee. This has increased from prior. No fracture, desiccation joint effusion is seen Assessment & Plan Assessment & Plan (1) Rotator cuff arthropathy of right shoulder: Code(s): M12.811 - Other specific arthropathies, not elsewhere classified, right shoulder Plan: Referred to PT (2) Internal derangement of knee: Code(s): M23.90 - Unspecified internal derangement of unspecified knee Qualifiers: Laterality: left Qualified Code(s): M23.92 - Unspecified internal derangement of left knee Plan: 7 month history of left knee pain, worse with activity. Denies any trauma. Not improving with NSAIDs.. Intermittently her left knee stiffen up. Knee is warm on exam with equivocal Radha's maneuver, left knee x-rays failed to etiology of pain. Will order left knee MRI to rule out internal derangement Voltaren gel trial Plan I spent 46 minutes reviewing patient's chart, evaluating patient, ordering diagnostic workup, counseling patient and documenting in the chart Orders: Orders PT Evaluation and Treatment Today M12.811 - Other specific arthropathies, not elsewhere classified, right shoulder MR knee LT wo con Today M23.90 - Unspecified internal derangement of unspecified knee Medications: New diclofenac sodium 1% (Voltaren Arthritis Pain) apply to single knee, ankle, foot; for foot includes sole/toes/top of foot 4 grams topical QID 100 grams 2RF Coding Level of Care Code New Pt Level 4 (07390) Diagnoses Rotator cuff arthropathy of right shoulder M12.811 Internal derangement of left knee M23.92 Laterality: left
[2023-02-07 08:53] VITALS: BP 112/78; PULSE 93; TEMP 37.1; O2SAT 99; BMI 41.1
== END 2023-02-07 09:25 | disposition home or self-care (01) ==
PROVIDERS: PCP Internal Medicine; Visit Provider Student in an Organized Health Care Education/Training Program
DX: M12.811 Other specific arthropathies, not elsewhere classified, right shoulder (principal); M23.92 Unspecified internal derangement of left knee
CPT/HCPCS: 99204

== ENCOUNTER → 2023-02-07 08:47 | Outpatient (BNVA) | payer OTHER, SELFPAY | PROVIDERS: Visit Provider Student in an Organized Health Care Education/Training Program ==

== ENCOUNTER → 2023-03-05 11:09 | Outpatient (REF) | payer OTHER, SELFPAY | LOC: HO.SL 11:09 | PROVIDERS: PCP Internal Medicine; Visit Provider Internal Medicine | DX: G47.10 Hypersomnia, unspecified (principal) | CPT/HCPCS: 95806 ==

== ENCOUNTER → 2023-03-05 11:15 | Outpatient (BNV) | payer OTHER, SELFPAY | PROVIDERS: PCP Internal Medicine; Visit Provider Internal Medicine | DX: G47.10 Hypersomnia, unspecified (principal); R06.83 Snoring | CPT/HCPCS: 95806 ==

== ENCOUNTER 2023-03-27 13:21 | Outpatient (REF) | payer OTHER, SELFPAY ==
--- NOTE | ~2023-03-27 | MR_ITS ---
EXAMINATION: MR KNEE WITHOUT CONTRAST, LEFT CLINICAL INFORMATION: Left knee pain and swelling. Evaluate for internal derangement. COMPARISON: Left knee radiographs dated 07/31/2022. TECHNIQUE: MRI of the knee without contrast was performed using routine sequences on a high-field scanner. FINDINGS: MENISCI: Medial Meniscus: Nondisplaced oblique inner margin/femoral articular surface tear of the meniscal body extending through the posterior horn and root. Lateral Meniscus: Intact. LIGAMENTS: Cruciate: Intact. Collateral: Edema adjacent to the medial collateral ligament consistent with a grade 1 sprain. Intact fibular collateral ligament. EXTENSOR MECHANISM: Intact quadriceps and patellar tendons. ARTICULAR CARTILAGE/BONE: Patellofemoral Compartment: Patellar articular cartilage signal heterogeneity with inferolateral patellar facet surface irregularity. Broad central trochlear articular cartilage thinning with areas of full-thickness loss and subchondral cystic change. Marginal osteophytes. Medial Compartment: Articular cartilage signal heterogeneity with focal full-thickness medial femoral condyle defect measuring up to 0.3 cm in ML dimension. Marginal osteophytes. Lateral Compartment: Mild articular cartilage signal heterogeneity with tiny marginal osteophytes. Degenerative cystic change and marrow edema of the posterolateral aspect of the lateral femoral condyle. JOINT FLUID AND BURSAE: Small joint effusion and small Tran's cyst. Posterior ossified loose body within a joint recess adjacent to the posterior cruciate ligament measuring up to 1.8 cm. MR/MR knee LT wo con IMPRESSION: 1. Nondisplaced oblique inner margin/femoral articular surface tear of the medial meniscal body extending through the posterior horn and root. 2. Probable grade 1 sprain of the medial collateral ligament. 3. Moderate patellofemoral as well as mild medial and lateral compartment osteoarthritis. Small joint effusion and small Tran's cyst. Posterior ossified loose body measuring up to 1.8 cm.
== END 2023-03-27 13:22 | disposition home or self-care (01) ==
LOC: HO.MRI 13:21
PROVIDERS: PCP Internal Medicine; Visit Provider Student in an Organized Health Care Education/Training Program
DX: M23.90 Unspecified internal derangement of unspecified knee (principal)
CPT/HCPCS: 73721

== ENCOUNTER 2023-04-01 08:28 | Outpatient (AMB) | payer OTHER, SELFPAY ==
--- NOTE | 2023-04-01 08:33 | MHC.OFFVIS ---
Intake Vital Signs 04/01/23 08:41 Height 5 ft 2 in Weight 224 lb BMI 41.0 Intake Visit Reasons: New prob- Left knee tear of medial meniscus Intake Note: Denita ozuna 47 year old female presents today as an established patient for an evaluation of left knee pain and locking. The patient states that she 1st injured her left knee approximately 10 years ago. Since that time her symptoms have gotten worse in spite of continued non operative treatments. She has done physical therapy for 12 weeks over the last 6 months which aggravated her pain. She has also tried Tylenol and anti-inflammatory medicines which gave her minimal relief. She has had injections in the past which gave her no relief. She states that her left knee will lock several times per day. Allergies bacitracin [BACITRACIN] Allergy (Mild, Verified 04/01/23 08:41) RASH Medication List - Last Reconciled 04/01/23 by Janes Cochran MD albuterol sulfate 90 mcg/actuation 2 puffs PO Q4-6H PRN amitriptyline 25 mg PO BEDTIME 90 days ascorbate calcium (vitamin C) 500 mg PO DAILY cholecalciferol (vitamin D3) 25 mcg PO DAILY clonidine HCl 0.1 mg PO TID PRN 90 days cyanocobalamin (vitamin B-12) 1,000 mcg PO DAILY diclofenac sodium 1% (Voltaren Arthritis Pain) 4 grams topical QID folic acid 1 mg PO DAILY lamotrigine 50 mg (2 x 25 mg) PO BID 90 days medroxyprogesterone (Depo-Provera) 150 mg IM [id number] omeprazole 20 mg PO DAILY ropinirole 0.25 mg PO BEDTIME sennosides-docusate sodium 8.6-50 mg (Senna-S) 2 tab-caps (2 x 8.6-50 mg) PO BEDTIME 30 days REPLACED BY [facility] Medical History (Updated 03/28/23 @ 13:15 by Javier Kuo MD) HPV (human papilloma virus) infection COVID-19 Restless leg syndrome Fibromyalgia Vitamin D deficiency Obesity Asthma Surgical History History of dilatation and curettage History of toe surgery Family History Father Diabetes Hypertension Cancer CVD (cardiovascular disease) Mother Cancer Diabetes CVD (cardiovascular disease) Maternal Grandmother Lung cancer Maternal Grandfather Gastric cancer Paternal Grandmother Ovarian cancer Paternal Grandfather Esophageal cancer Maternal Aunt Breast cancer Maternal Uncle Colon cancer Sister Bipolar 1 disorder Mental health disorder Other Arthritis Social History Household Members: Children Housing: House Are you a primary director of medicare to a significant other at home: Yes Alcohol intake: never Patient Tobacco Use Status: Former Tobacco user Quit Date: 2009 Tobacco use type: Cigarette Years Smoked: 2004 stopped e-Cigarette/Vaping Use: Never Used Second Hand Smoke Exposure: Yes service: No Current occupational status: employed 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 Sexual orientation: Straight/Heterosexual Cognitive needs: No Hearing needs: No Vision needs: Yes Female Reproductive History Menstrual Age of Menarche: 13 Physical Exam Vital Signs: BMI result Body Mass Index 41.0 Const Other: Well-nourished well-developed very friendly female awake alert and oriented x3 in no acute distress Extrem Other: Bilateral lower extremity examination shows good capillary refill, no skin lesions noted, normal sensation light touch Left knee examination shows a minimal effusion, minimal crepitus with range of motion, tenderness along her medial and lateral joint lines, positive Radha's test, no instability Results Reviewed Results Reviewed: Standing full weight-bearing x-rays of the patient's left knee show minimal grade 1 diffuse joint space narrowing, no acute bony abnormalities Left knee MRI shows mild diffuse degenerative changes as well as tearing of her medial meniscus and possible lateral meniscus tearing Assessment & Plan Assessment & Plan (1) Tear of medial meniscus of knee: Code(s): S83.249A - Other tear of medial meniscus, current injury, unspecified knee, initial encounter Plan Ms. Nguyen presents with progressively worsening left knee pain and mechanical symptoms due to a tear of her medial meniscus and possible lateral meniscus tearing. I had a lengthy discussion with the patient regarding the treatment options. At this point she has failed continued non operative treatments. The risks and benefits of left knee arthroscopic surgery were discussed at length with the patient. The patient wishes to proceed with surgery. She does understand that she may not get 100% relief of her symptoms depending on the severity of her degenerative changes. The patient will contact my office to pick a surgery date. She will follow-up as instructed. Feel free to call me at any time should questions regarding her orthopedic management arise. Thank you very much for asking me to see this very friendly patient. I spent 22 minutes in reviewing the patient's records and imaging studies, seeing the patient and documenting in the medical record. Coding Level of Care Code New Pt Level 2 (34758) Diagnoses Tear of medial meniscus of knee S83.249A
[2023-04-01 08:41] VITALS: BMI 41.0
== END 2023-04-01 08:55 | disposition home or self-care (01) ==
PROVIDERS: PCP Internal Medicine; Visit Provider Orthopaedic Surgery
DX: S83.249A Other tear of medial meniscus, current injury, unspecified knee, initial encounter (principal)
CPT/HCPCS: 99202

== ENCOUNTER → 2023-04-01 08:28 | Outpatient (BNVA) | payer OTHER, SELFPAY | PROVIDERS: PCP Internal Medicine; Visit Provider Orthopaedic Surgery | DX: S83.242A Other tear of medial meniscus, current injury, left knee, initial encounter (principal) | CPT/HCPCS: 99202 ==

== ENCOUNTER 2023-04-16 12:56 | Outpatient (AMB) | payer OTHER, SELFPAY ==
[2023-04-16 13:15] VITALS: BMI 41.5
--- NOTE | 2023-04-16 13:15 | AM.OFFVISNUR ---
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 No c/o, pt tolerated injection well. She will schedule her next injection for 12 weeks from now. Pt verbalizes understanding and agrees with plan. No further questions. Office Procedures Depo Questionnaire If YES to any of the following questions, please consult a provider. Date of last injection: 01/29/23 Date of last gynecology exam: 07/10/22 Menstrual pattern since last injection has been: Not Applicable Irregular bleeding?: No Breast lumps or other breast changes?: No Changes in weight or appetite?: No Depression or changes in mood?: No Abnormal hair growth or loss?: No Skin problems (rash, acne, discoloration)?: No Pain at the injection site?: No Headaches?: No Nervousness?: No Abdominal pain or cramping?: No Dizziness or nausea?: No Fatigue or weakness?: No Decrease in sexual drive?: No Chest pain or shortness of breath?: No Swelling in arms or legs?: No Form completed by?: Lyla García RN Office Meds Depo-Provera 150 mg/mL intramuscular syringe Performing Provider: Elaina Shah CNM Performing Location: [facility] Administered by: Lyla García on 04/16/23 13:17 Dose Route Admin Location Dispensed Lot Number Expiration Date [facility] Electrostatic Paint Operator 150 mg IM LGM 1 mL [id number] 03/11/25 33437-846-24 [facility] Coding Level of Care Code Established Pt Est Pt Level 1 (89969) Patient Type Established History Problem Focused Medical Decision Making Straight Forward Time Spent (min) 12 Assessment & Plan Assessment & Plan Plan Pt will schedule next Depo injection in 12 weeks. Pt verbalizes understanding and agrees with plan. No further questions. Orders: Orders AMB Medroxyprogesterone Injection Patient Supplied Today Z30.42 - Encounter for surveillance of injectable contraceptive
== END 2023-04-16 13:11 | disposition home or self-care (01) ==
PROVIDERS: PCP Internal Medicine; Visit Provider Advanced Practice Midwife
DX: Z30.42 Encounter for surveillance of injectable contraceptive (principal)

== ENCOUNTER → 2023-04-16 12:56 | Outpatient (BNVA) | payer OTHER, SELFPAY | PROVIDERS: PCP Internal Medicine; Visit Provider Advanced Practice Midwife | DX: Z30.42 Encounter for surveillance of injectable contraceptive (principal) | CPT/HCPCS: 96372; 99211; J1050 ==

== ENCOUNTER 2023-05-14 14:01 | Outpatient (AMB) | payer OTHER, SELFPAY ==
[2023-05-14 14:05] VITALS: BP 122/74; PULSE 85; TEMP 36.4; O2SAT 99; BMI 41.0
--- NOTE | 2023-05-14 14:05 | MHC.OFFVIS ---
Intake Vital Signs 05/14/23 14:05 Height 5 ft 2 in Weight 224 lb 6.889 oz BMI 41.0 BP 122/74 Blood Pressure Location Rt brachial Position Sitting Pulse 85 Pulse Source Pulse Oximeter Temp 97.6 F Temp Source Skin Pulse Oximetry (%) 99 Intake Visit Reasons: OA Intake Note: Pt last seen 02/07/23 presents today for follow up and test results. Left knee surgey scheduled with Ortho Mechanical Design Drafter Required: No Accompanied by: Self / Same As Patient Allergies bacitracin [BACITRACIN] Allergy (Mild, Verified 05/14/23 14:09) RASH Medication List - Last Reconciled 05/14/23 by Javier Kuo MD albuterol sulfate 90 mcg/actuation 2 puffs PO Q4-6H PRN amitriptyline 25 mg PO BEDTIME 90 days ascorbate calcium (vitamin C) 500 mg PO DAILY cholecalciferol (vitamin D3) 25 mcg PO DAILY clonidine HCl 0.1 mg PO TID PRN 90 days cyanocobalamin (vitamin B-12) 1,000 mcg PO DAILY diclofenac sodium 1% (Voltaren Arthritis Pain) 4 grams topical QID folic acid 1 mg PO DAILY lamotrigine 50 mg (2 x 25 mg) PO BID 90 days medroxyprogesterone (Depo-Provera) 150 mg IM [id number] omeprazole 20 mg PO DAILY ropinirole 0.25 mg PO BEDTIME sennosides-docusate sodium 8.6-50 mg (Senna-S) 2 tab-caps (2 x 8.6-50 mg) PO BEDTIME 30 days HPI HPI Comments History of Present Illness Details Patient returns for follow-up after completion of her knee MRI. She was found to have a meniscal tear, she followed up with Orthopedics and she is planned for left knee arthroscopy , she states that recently she has been having pain on the outside of her right hip. She believes that it is a consequence of her left knee pain Initial history: This is a 47-year-old female a past medical history of fibromyalgia who presents for evaluation of multiple joint pain. Patient stated that about 7 months ago she started having left knee pain. Worse with going up and down the stairs, worse at night. She also states that she has right shoulder pain and stiffness. She did physical therapy for rotator cuff tendinopathy for her shoulder 7 years ago. [facility] Medical History HPV (human papilloma virus) infection COVID-19 Restless leg syndrome Fibromyalgia Vitamin D deficiency Obesity Asthma Surgical History History of dilatation and curettage History of toe surgery Family History Father Diabetes Hypertension Cancer CVD (cardiovascular disease) Mother Cancer Diabetes CVD (cardiovascular disease) Maternal Grandmother Lung cancer Maternal Grandfather Gastric cancer Paternal Grandmother Ovarian cancer Paternal Grandfather Esophageal cancer Maternal Aunt Breast cancer Maternal Uncle Colon cancer Sister Bipolar 1 disorder Mental health disorder Other Arthritis Social History Household Members: Children Housing: House Are you a primary career placement services counselor to a significant other at home: Yes Alcohol intake: never Patient Tobacco Use Status: Former Tobacco user Quit Date: 2009 Tobacco use type: Cigarette Years Smoked: 2004 stopped e-Cigarette/Vaping Use: Never Used Second Hand Smoke Exposure: Yes service: No Current occupational status: employed 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 Sexual orientation: Straight/Heterosexual Cognitive needs: No Hearing needs: No Vision needs: Yes Female Reproductive History Menstrual Age of Menarche: 13 Review of Systems Musc Reports arthralgias and Reports limited range of motion Psych Reports anxiety Physical Exam Vital Signs: Last Vital Signs Temp 97.6 F 05/14/23 14:05 Pulse 85 05/14/23 14:05 BP 122/74 05/14/23 14:05 Pulse Ox 99 05/14/23 14:05 BMI result Body Mass Index 41.0 Const General: cooperative, healthy appearing and comfortable Nutritional Appearance: obese morbidly obese Orientation/consciousness: patient oriented x3 Limitations: no limitations HEENT Head: Yes normocephalic and Yes atraumatic Resp Effort & Inspection: normal respiratory effort and able to speak in complete sentences Neuro General: patient oriented x3 Extrem Other: Few fibromyalgia tender points Right trochanteric bursa area tenderness Assessment & Plan Assessment & Plan (1) Tear of medial meniscus of knee: Code(s): S83.249A - Other tear of medial meniscus, current injury, unspecified knee, initial encounter Qualifiers: Tear current or old: current Encounter type: subsequent encounter Meniscus tear of knee type: unspecified type Laterality: left Qualified Code(s): S83.242D - Other tear of medial meniscus, current injury, left knee, subsequent encounter Plan: Evaluated by Orthopedics and scheduled for left knee arthroscopy (2) Greater trochanteric bursitis of right hip: Code(s): M70.61 - Trochanteric bursitis, right hip Plan: I gave patient a printout of home exercises for greater trochanteric pain syndrome. Follow-up as needed Plan I spent 15 minutes reviewing patient's chart, evaluating patient, counseling patient and documenting in the chart Coding Level of Care Code Est Pt Level 3 (90981) Diagnoses Tear of medial meniscus of left knee, current, unspecified tear type, subsequent encounter S83.242D Tear current or old: current Encounter type: subsequent encounter Meniscus tear of knee type: unspecified type Laterality: left Greater trochanteric bursitis of right hip M70.61
== END 2023-05-14 14:22 | disposition home or self-care (01) ==
PROVIDERS: PCP Internal Medicine; Visit Provider Student in an Organized Health Care Education/Training Program
DX: S83.242D Other tear of medial meniscus, current injury, left knee, subsequent encounter (principal); M70.61 Trochanteric bursitis, right hip
CPT/HCPCS: 99213

== ENCOUNTER → 2023-05-14 14:01 | Outpatient (BNVA) | payer OTHER, SELFPAY | PROVIDERS: PCP Internal Medicine; Visit Provider Student in an Organized Health Care Education/Training Program | DX: S83.242D Other tear of medial meniscus, current injury, left knee, subsequent encounter (principal); M70.61 Trochanteric bursitis, right hip | CPT/HCPCS: 99212 ==

== ENCOUNTER 2023-05-16 09:41 | Outpatient (AMB) | payer OTHER, SELFPAY ==
[2023-05-16 09:42] VITALS: BP 118/72; PULSE 84; O2SAT 100; BMI 41.3
--- NOTE | 2023-05-16 09:42 | MHC.PC.OV ---
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 Last seen for physical exam in January 2023. Mammograms up-to-date patient has seen Rheumatology for the knee found to have a meniscal tear and orthopedics planned left knee arthroscopy has had poly arthropathy his with a history with the right hip pain sent for exercises. Patient had a sleep study February 2023 showing negative for sleep apnea. L knee surgery friday. Patient has forms for handicap plactrinityd on account of having knee surgery and also will be donagting blood/plasma on account of PTSD diagnosis. 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 [facility] Medical History HPV (human papilloma virus) infection COVID-19 Restless leg syndrome Fibromyalgia Vitamin D deficiency Obesity Asthma Surgical History History of dilatation and curettage History of toe surgery Family History Father Diabetes Hypertension Cancer CVD (cardiovascular disease) Mother Cancer Diabetes CVD (cardiovascular disease) Maternal Grandmother Lung cancer Maternal Grandfather Gastric cancer Paternal Grandmother Ovarian cancer Paternal Grandfather Esophageal cancer Maternal Aunt Breast cancer Maternal Uncle Colon cancer Sister Bipolar 1 disorder Mental health disorder Other Arthritis Social History Household Members: Children Housing: House Are you a primary care provider to a significant other at home: Yes Alcohol intake: never Patient Tobacco Use Status: Former Tobacco user Quit Date: 2009 Tobacco use type: Cigarette Years Smoked: 2005 stopped e-Cigarette/Vaping Use: Never Used Second Hand Smoke Exposure: Yes service: No Current occupational status: employed 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 1. Little interest or pleasure in doing things: several days 2. Feeling down, depressed, or hopeless: nearly every day 3. Trouble falling or staying asleep, or sleeping too much: nearly every day 4. Feeling tired or having little energy: nearly every day 5. Poor appetite or overeating: several days 6. Feeling bad about yourself - or that you are a failure or have let yourself or your family down: nearly every day 7. Trouble concentrating on things, such as reading the newspaper or watching television: nearly every day 8. Moving or speaking so slowly that other people could have noticed. Or the opposite - being so fidgety or restless that you have been moving around a lot more than usual: not at all 9. Thoughts that you would be better off or of hurting yourself in some way: not at all Total score: 17 Depression Screening Interpretation: Positive Depression Screening Done: Yes Source: Developed by Drs. Christian Raymond, Jennifer Liang, Pete Martinez and colleagues, with an educational chet from [employer]. Thrive Questionnaire Date Thrive assessed: 01/23/23 AUDIT C Alcohol Use Questionnaire (AUDIT-C) 1. How often do you have a drink containing alcohol?: Never 2. How many drinks containing alcohol do you have on a typical day when you are drinking?: 1 or 2 (0) 3. How often do you have six or more drinks on one occasion?: Never Total Score: 0 SAMANTHA-7 AMB Questionnaire SAMANTHA-7 Date SAMANTHA - 7 assessed: 05/16/23 Feeling nervous, anxious, or on edge: 1 = Several days Not being able to stop or control worryin = Several days Worrying too much about different things: 1 = Several days Trouble relaxin = Not at all Being so restless that it is hard to sit still: 0 = Not at all Becoming easily annoyed or irritable: 0 = Not at all Feeling afraid as if something awful might happen: 0 = Not at all Total SAMANTHA-7 score (0-4 normal; 5-9 mild; 10-14 moderate; 15-21 severe): 3 Source: Developed by Drs. Christian Raymond, Jennifer Liang, Pete Martinez and colleagues, with an educational chet from [employer]. Physical exam (Primary Care) Vital Signs: Last Vital Signs Pulse 84 05/16/23 09:42 BP 118/72 05/16/23 09:42 Pulse Ox 100 05/16/23 09:42 Oxygen Delivery Method Room Air 05/16/23 09:42 BMI result Body Mass Index 41.3 Tobacco/Smoking Status: Tobacco use Status Tobacco use date assessed 05/16/23 05/16/23 09:43 Patient Tobacco Use Status Former Tobacco user 05/16/23 09:43 Tobacco use type Cigarette 05/16/23 09:43 e-Cigarette/Vaping Use Never Used 05/16/23 09:43 PHQ-9: PHQ-9 Score PHQ-9: Total score 17 05/16/23 09:50 Depression Screening Interpretation: Positive Thrive Assessment: Date of Thrive Assessment Date Thrive assessed 01/23/23 05/16/23 09:43 Const General: alert; No acute distress Eyes Conjunctivae: conjunctivae normal Resp Auscultation: clear to auscultation bilaterally Cardio Rate: regular rate Rhythm: regular rhythm GI Inspection: Yes normal to inspection Extrem General: Yes normal to inspection and No edema Office Procedures Flu Questionnaire Does the patient have a severe egg allergy?: No Does the patient have severe life threatening allergies?: No Does the patient have a fever or illness today?: No Has the patient ever had Guillain-Trivoli Syndrome?: No Has the patient ever had any past reaction to a flu shot?: No Immunizations flu vacc [id number] 6mos up(PF) 60 mcg(15 mcgx4)/0.5 mL IM syringe Performing Provider: Connie Young MD [facility] Administered by: KRISTYN Kuo on 05/16/23 09:50 Dose Route Admin Location Dispensed Lot Number Expiration Date NDC Coremaker Machine 0.5 mL IM Left Deltoid 0.5 mL [id number] 11/09/23 44098-815-97 [employer] VIS Given Date VIS Provided VIS Publication Date 05/16/23 Single Vaccine 20 Eligibility Eligibility Date Funding Source Not [facility] Eligible 05/16/23 [facility] Assessment and Plan Assessment & Plan (1) Obesity: Code(s): E66.9 - Obesity, unspecified Qualifiers: Obesity type: due to excess calories Obesity classification: adult class 3 (BMI >= 40) Serious obesity comorbidity presence: without serious comorbidity Body mass index: BMI 40.0-44.9 Qualified Code(s): E66.01 - Morbid (severe) obesity due to excess calories; Z68.41 - Body mass index [BMI]40.0-44.9, adult Plan: Diet and exercise (2) GERD (gastroesophageal reflux disease): Code(s): K21.9 - Gastro-esophageal reflux disease without esophagitis Qualifiers: Esophagitis presence: without esophagitis Qualified Code(s): K21.9 - Gastro-esophageal reflux disease without esophagitis Plan: GERD plan (3) Trochanteric bursitis of right hip: Code(s): M70.61 - Trochanteric bursitis, right hip Plan: Patient has seen Rheumatology and was advised exercises (4) Generalized anxiety disorder: [facility] Code(s): F41.1 - Generalized anxiety disorder Plan: Continue with counseling and therapy (5) Tear of medial meniscus of knee: Code(s): S83.249A - Other tear of medial meniscus, current injury, unspecified knee, initial encounter Qualifiers: Tear current or old: current Encounter type: subsequent encounter Meniscus tear of knee type: unspecified type Laterality: left Qualified Code(s): S83.242D - Other tear of medial meniscus, current injury, left knee, subsequent encounter Plan: Patient had a planned surgery Orders: Orders Influenza [id number] Immunization Today Z23 - Encounter for immunization Coding Level of Care Code Est Pt Level 4 (11519) Diagnoses Class 3 severe obesity due to excess calories without serious comorbidity with body mass index (BMI) of 40.0 to 44.9 in adult E66.01; Z68.41 Obesity type: due to excess calories Obesity classification: adult class 3 (BMI >= 40) Serious obesity comorbidity presence: without serious comorbidity Body mass index: BMI 40.0-44.9 Gastroesophageal reflux disease without esophagitis K21.9 Esophagitis presence: without esophagitis Trochanteric bursitis of right hip M70.61 Generalized anxiety disorder F41.1 Tear of medial meniscus of left knee, current, unspecified tear type, subsequent encounter S83.242D Tear current or old: current Encounter type: subsequent encounter Meniscus tear of knee type: unspecified type Laterality: left
== END 2023-05-16 10:48 | disposition home or self-care (01) ==
PROVIDERS: PCP Internal Medicine; Visit Provider Internal Medicine
DX: E66.01 Morbid (severe) obesity due to excess calories (principal); Z68.41 Body mass index [BMI] 40.0-44.9, adult; K21.9 Gastro-esophageal reflux disease without esophagitis; M70.61 Trochanteric bursitis, right hip; F41.1 Generalized anxiety disorder; S83.242D Other tear of medial meniscus, current injury, left knee, subsequent encounter; Z23 Encounter for immunization
CPT/HCPCS: 90471; 90686; 99214

== ENCOUNTER 2023-05-23 05:52 | Day surgery (SDC) | payer OTHER, SELFPAY ==
[2023-05-19 16:07] VITALS: BMI 41.3
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
[2023-05-23] VITALS (8 sets, daily range): BP systolic 118–145; BP diastolic 70–88; PULSE 73–92; RESP 16–18; TEMP 36.6–37.1; O2SAT 98–100
[2023-05-23 06:23] LABS: UPreg QC Valid YES; Urine Pregnancy NEGATIVE (NEGATIVE)
[2023-05-23] MEDS: Lactated Ringers 1,000 ML 100 ML IVCONT (06:31)
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
[2023-05-23] MEDS: fentaNYL citrate/PF 100 MCG/2 ML VIAL 50 MCG IVPUSH (08:40)
[2023-05-23] MEDS: oxyCODONE HCl Immed Release 5 MG TABLET PO (08:40)
[2023-05-23] MEDS: cefTRIAXone sodium 1 GM in 0.9 % Sodium Chloride 50 ML IV (08:45)
--- NOTE | 2023-05-23 09:55 | PM.OP ---
Brief Operative Note Date of Service: 05/23/23 Pre-op diagnosis: Left knee medial and lateral meniscus tears Post-op diagnosis: same Procedure: Left knee diagnostic arthroscopy with left knee arthroscopic partial medial and lateral meniscectomies Implants: none Surgeon: Janes Cochran MD Anesthesia: GLMA Was an Retail Account Specialist used for this Procedure?: No Estimated blood loss (mL): 10 Pathology: none sent Condition: stable Disposition: PACU
--- NOTE | 2023-05-23 09:56 | W.PM.OPN ---
Operative Note Operative Note Date of Service: 05/23/23 Narrative: After the patient was identified as Denita Nguyen and their left knee was initialed by myself they were brought to the operating room where general anesthesia was induced by the anesthesiologist in routine fashion. The patient was given 2 g of IV Ancef preoperatively for infection prophylaxis. The patient's left lower extremity was prepped and draped in sterile fashion. A formal time-out was completed. Marcaine was injected into the planned incision sites as well as the patient's left knee joint. A #11 scalpel blade was used to make an anterolateral portal 1 cm proximal to the joint line and 1 cm lateral to the patellar tendon. Blunt trocar technique was used to enter the suprapatellar pouch with the knee in extension. Diagnostic arthroscopy showed multiple bands of thickened plica which would be excised at the end of the procedure. There were no loose bodies or abnormalities found in either the medial or lateral gutters. The articular surface of the patella showed diffuse grades 1 and 2 degenerative changes. The trochlear groove articular surface showed diffuse grades 1 and 2 degenerative changes. The patient's knee was flexed to 45 degrees and a valgus force was placed upon it. The medial compartment was entered. An anteromedial portal was made 1 cm proximal to the joint line and 1 cm medial to the patellar tendon. Probing of the medial meniscus showed a radial tear of the posterior horn. A partial medial meniscectomy was performed using the arthroscopic shaver. Following the partial meniscectomy the remainder of the meniscus tissue was stable. There were diffuse grades 1 and 2 degenerative changes of the medial femoral condyle as well as grade 1 degenerative changes of the medial tibial plateau. The articular surface of the medial femoral condyle was then made smooth using the arthroscopic shaver. The articular surface of the medial tibial plateau was already smooth so no chondroplasty was indicated. The patient's knee was placed into a neutral position. There was no injury to the anterior cruciate ligament. The patient's knee was then placed in the figure of 4 position and the lateral compartment was entered. There was a radial tear of the anterior horn of the lateral meniscus. A partial lateral meniscectomy was performed using the arthroscopic shaver. Following the partial meniscectomy the remainder of the meniscus tissue was stable. There were minimal degenerative changes of the lateral femoral condyle and lateral tibial plateau. The patient's knee was once again brought into extension and the suprapatellar pouch was entered. The arthroscopic shaver and the ArthroCare Wand were used to excise the thickened bands of plica. The undersurface of the patella was then made smooth using the arthroscopic shaver. The articular surface of the trochlear groove was already smooth so no chondroplasty was indicated. The knee joint was irrigated and then drained. All arthroscopic instruments were removed. The 2 portals were closed with 3-0 nylon interrupted suture. The knee joint was injected with Marcaine. Dry sterile dressing and Mumtaz bandages were placed over the patient's knee. The patient was awoken and extubated in the operating room. The patient was transferred to the recovery room in stable condition.
== END 2023-05-23 09:38 | disposition home or self-care (01) ==
PROVIDERS: Nurse Practitioner; PCP Internal Medicine; Visit Provider Orthopaedic Surgery
PROC: (CPT 29870; principal; 2023-05-23 07:30)
DX: S83.242A Other tear of medial meniscus, current injury, left knee, initial encounter (principal); S83.282A Other tear of lateral meniscus, current injury, left knee, initial encounter; M67.52 Plica syndrome, left knee; M23.92 Unspecified internal derangement of left knee; M25.562 Pain in left knee; X58.XXXA Exposure to other specified factors, initial encounter; Y93.9 Activity, unspecified; Y92.9 Unspecified place or not applicable; Y99.8 Other external cause status; M17.12 Unilateral primary osteoarthritis, left knee; G25.81 Restless legs syndrome; M79.7 Fibromyalgia; J45.909 Unspecified asthma, uncomplicated; E55.9 Vitamin D deficiency, unspecified; E66.9 Obesity, unspecified; Z68.41 Body mass index [BMI] 40.0-44.9, adult; Z79.899 Other long term (current) drug therapy; Z87.891 Personal history of nicotine dependence
CPT/HCPCS: 29880; 29876; 81025; J0171; J0690; J0696; J1100; J1170; J1885; J2250; J2405; J2704; J2795; J3010

== ENCOUNTER → 2023-05-23 05:52 | Outpatient (BNV) | payer OTHER, SELFPAY | PROVIDERS: PCP Internal Medicine; Visit Provider Orthopaedic Surgery | DX: S83.242A Other tear of medial meniscus, current injury, left knee, initial encounter (principal); S83.282A Other tear of lateral meniscus, current injury, left knee, initial encounter | CPT/HCPCS: 29880 ==

== ENCOUNTER 2023-05-27 13:29 | Emergency (ER) | payer OTHER, SELFPAY ==
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
[2023-05-27 13:43] VITALS: BP 140/80; PULSE 95; RESP 19; TEMP 36.6; O2SAT 99; BMI 41.9
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
--- NOTE | 2023-05-27 16:27 | ECG_ITS ---
Test Reason : BACK PAIN Blood Pressure : / mmHG Vent. Rate : 082 BPM Atrial Rate : 082 BPM P-R Int : 100 ms QRS Dur : 080 ms QT Int : 388 ms P-R-T Axes : 036 045 024 degrees QTc Int : 453 ms Sinus rhythm with short NC Otherwise normal ECG When compared with ECG of 24-DEC-2022 20:03, No significant change was found Referred By: Frances Anderson Electronically Signed By:RODNEY DENNEY
[2023-05-27 17:14] VITALS: BP 124/71; PULSE 96; RESP 18; TEMP 36.8; O2SAT 100
[2023-05-27 17:52] LABS: MANUAL DIFF FLAG NO
[2023-05-27 17:55] LABS: Basophils Percent Auto 0.2 % (0-2); Eosinophils Absolute Auto 0.1 X10*3/uL (0.0-0.4); Eosinophils Percent Auto 1.2 % (0-4); Hematocrit 41.1 % (37.0-47.0); Hemoglobin 13.6 g/dl (12.0-16.0); Imm Gran Abs Auto 0.06 X10*3/uL (0.00-0.03); Imm Gran Pct Auto 0.5 % (0.0-0.4); Lymphocytes Absolute Auto 2.9 X10*3/uL (1.2-4.9); Lymphocytes Percent Auto 23.8 % (20-40); Mean Corpuscular HGB Conc 33.1 g/dl (31.0-35.0); Mean Corpuscular Hemoglobin 30.8 pg (27.0-33.0); Mean Corpuscular Volume 93.2 fL (80.0-98.0); Mean Platelet Volume 9.7 fL (9.4-12.3); Monocytes Absolute Auto 0.7 X10*3/uL (0.1-1.2); Monocytes Percent Auto 5.4 % (2-11); Neutrophils Absolute Auto 8.3 x10*3/uL (2.0-8.3); Neutrophils Percent Auto 68.9 % (45-73); Platelet Count 401 X10*3/uL (160-400); Red Blood Count 4.41 X10*6/uL (4.20-5.50); Red Cell Distribution Width 13.5 % (11.0-16.0); White Blood Count 12.1 X10*3/uL (4.8-10.8)
[2023-05-27 18:09] LABS: Alanine Aminotransferase 15 U/L (0-31); Albumin Level 3.9 g/dL (3.5-5.0); Alkaline Phosphatase 80 U/L (39-117); Anion Gap 14 (12-20); Aspartate Amino Transferase 14 U/L (5-31); Bilirubin Total 0.8 mg/dL (0.0-1.0); Blood Urea Nitrogen 13 mg/dL (9-16); Calcium 9.6 mg/dL (8.4-10.2); Carbon Dioxide 22 mmol/L (22-29); Chloride 105 mmol/L (96-108); Creatinine Clr Calc Pharmacy 85.4; Estimated Glomerular Filt Rate > 60; Glucose Random 86 mg/dL (60-115); Potassium 3.6 mmol/L (3.3-5.1); Sodium 137 mmol/L (135-145); Total Protein 7.6 g/dL (6.5-8.0)
[2023-05-27 18:16] LABS: HCG Quantitative < 2 mIU/mL; Troponin-I High Sensitivity < 2.7 ng/L (<3.5-17.0)
[2023-05-27] MEDS: iohexoL 350 MG/ML 100 ML INFUS..BTL IV (19:02)
[2023-05-27 20:31] VITALS: BP 123/75; PULSE 98; RESP 16; O2SAT 97
[2023-05-27] MEDS: Acetaminophen 325 MG TABLET 975 MG PO (20:53)
== END 2023-05-27 21:15 | disposition still patient (30) ==
PROVIDERS: Physician Assistant Medical; Emergency Provider Emergency Medicine Emergency Medical Services; PCP Internal Medicine
DX: S86.812A Strain of other muscle(s) and tendon(s) at lower leg level, left leg, initial encounter (principal); S39.012A Strain of muscle, fascia and tendon of lower back, initial encounter; S16.1XXA Strain of muscle, fascia and tendon at neck level, initial encounter; V43.52XA Car driver injured in collision with other type car in traffic accident, initial encounter; R93.0 Abnormal findings on diagnostic imaging of skull and head, not elsewhere classified; M79.662 Pain in left lower leg; Y93.89 Activity, other specified; Y92.414 Local residential or business street as the place of occurrence of the external cause; Y99.9 Unspecified external cause status
CPT/HCPCS: 36415; 70450; 71260; 72100; 72125; 73562; 74177; 80053; 84484; 84702; 85025; 93005; 93971; 99284; 99285; Q9967

== ENCOUNTER → 2023-05-27 16:27 | Outpatient (BNV) | payer OTHER, SELFPAY | PROVIDERS: Emergency Provider Emergency Medicine Emergency Medical Services; PCP Internal Medicine; Visit Provider Internal Medicine | DX: M54.9 Dorsalgia, unspecified (principal) | CPT/HCPCS: 93010 ==

== ENCOUNTER 2023-05-29 15:09 | Outpatient (AMB) | payer OTHER, SELFPAY ==
[2023-05-29 15:11] VITALS: BMI 41.9
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
== END 2023-05-29 15:34 | disposition home or self-care (01) ==
PROVIDERS: PCP Internal Medicine; Visit Provider Orthopaedic Surgery
DX: M25.562 Pain in left knee (principal)
CPT/HCPCS: 99024

== ENCOUNTER → 2023-05-29 15:09 | Outpatient (BNVA) | payer OTHER, SELFPAY | PROVIDERS: PCP Internal Medicine; Visit Provider Orthopaedic Surgery | DX: M25.562 Pain in left knee (principal) | CPT/HCPCS: 99212 ==

== ENCOUNTER 2023-06-01 07:40 | Emergency (ER) | payer OTHER, SELFPAY ==
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
[2023-06-01 07:47] VITALS: BP 145/82; PULSE 79; RESP 16; TEMP 36.8; O2SAT 100; BMI 41.8
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
== END 2023-06-01 10:29 | disposition home or self-care (01) ==
PROVIDERS: Emergency Provider Emergency Medicine; PCP Internal Medicine
DX: S60.222A Contusion of left hand, initial encounter (principal); S40.012A Contusion of left shoulder, initial encounter; M79.642 Pain in left hand; V43.52XA Car driver injured in collision with other type car in traffic accident, initial encounter; Y93.9 Activity, unspecified; Y92.410 Unspecified street and highway as the place of occurrence of the external cause; Y99.9 Unspecified external cause status
CPT/HCPCS: 73030; 73130; 99283

== ENCOUNTER 2023-06-02 13:47 | Outpatient (AMB) | payer OTHER, SELFPAY ==
[2023-06-02 13:53] VITALS: BP 122/82; PULSE 79; O2SAT 100; BMI 41.3
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
== END 2023-06-02 14:54 | disposition home or self-care (01) ==
PROVIDERS: PCP Internal Medicine; Visit Provider Internal Medicine
DX: M54.2 Cervicalgia (principal); M54.50 Low back pain, unspecified; M25.562 Pain in left knee; Z04.3 Encounter for examination and observation following other accident; V89.2XXD Person injured in unspecified motor-vehicle accident, traffic, subsequent encounter
CPT/HCPCS: 99213

== ENCOUNTER 2023-06-05 13:53 | Outpatient (AMB) | payer OTHER, SELFPAY ==
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
[2023-06-05 14:00] VITALS: BMI 41.3
== END 2023-06-05 14:48 | disposition home or self-care (01) ==
PROVIDERS: PCP Internal Medicine; Visit Provider Physician Assistant
DX: S83.242D Other tear of medial meniscus, current injury, left knee, subsequent encounter (principal); Z98.890 Other specified postprocedural states
CPT/HCPCS: 99024

== ENCOUNTER → 2023-06-05 13:53 | Outpatient (BNVA) | payer OTHER, SELFPAY | PROVIDERS: PCP Internal Medicine; Visit Provider Physician Assistant | DX: S83.242D Other tear of medial meniscus, current injury, left knee, subsequent encounter (principal); Z98.890 Other specified postprocedural states | CPT/HCPCS: 99212 ==

== ENCOUNTER 2023-07-01 12:51 | Outpatient (AMB) | payer OTHER, SELFPAY ==
[2023-07-01 12:53] VITALS: BP 110/62; PULSE 80; O2SAT 100; BMI 41.3
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
== END 2023-07-01 13:14 | disposition home or self-care (01) ==
PROVIDERS: PCP Internal Medicine; Visit Provider Internal Medicine
DX: M54.50 Low back pain, unspecified (principal); V89.2XXD Person injured in unspecified motor-vehicle accident, traffic, subsequent encounter; M54.2 Cervicalgia; M25.562 Pain in left knee
CPT/HCPCS: 99213

== ENCOUNTER 2023-07-02 13:05 | Outpatient (AMB) | payer OTHER, SELFPAY ==
[2023-07-02 13:21] VITALS: BMI 38.6
--- NOTE | 2023-07-02 13:21 | AM.OFFVISNUR ---
Intake Vital Signs 07/02/23 13:21 Height 5 ft 2 in Weight 95.708 kg BMI 38.6 Intake Visit Reasons: Depo Allergies bacitracin [BACITRACIN] Allergy (Mild, Verified 07/01/23 12:53) RASH Nursing Note Denita is here today for her scheduled Depo-Provera inj, with medication in sealed bag. NO c/o. Pt is scheduled for AG in 2 weeks. Follow up for inj in 12 weeks. Office Procedures Depo Questionnaire If YES to any of the following questions, please consult a provider. Date of last injection: 04/16/23 Date of last gynecology exam: 07/10/22 Menstrual pattern since last injection has been: Not Applicable Irregular bleeding?: No Breast lumps or other breast changes?: No Changes in weight or appetite?: No Depression or changes in mood?: No Abnormal hair growth or loss?: No Skin problems (rash, acne, discoloration)?: No Pain at the injection site?: No Headaches?: No Nervousness?: No Abdominal pain or cramping?: No Dizziness or nausea?: No Fatigue or weakness?: No Decrease in sexual drive?: No Chest pain or shortness of breath?: No Swelling in arms or legs?: No Form completed by?: Rah Bartlett LPN Office Meds Depo-Provera 150 mg/mL intramuscular syringe Performing Provider: Lion Elizondo MD Performing Location: [facility] Administered by: Khushbu Bartlett LPN on 07/02/23 13:22 Dose Route Admin Location Dispensed Lot Number Expiration Date [facility] Exchange Underwriting Consultant 150 mg IM rt. gluteus 1 mL [id number] 08/09/25 55012-173-80 [facility] Coding Level of Care Code Established Pt Est Pt Level 1 (34795) Patient Type Established History Problem Focused Exam Problem Focused Medical Decision Making Straight Forward Time Spent (min) 20 Assessment & Plan Assessment & Plan Orders: Orders AMB Medroxyprogesterone Injection Patient Supplied Today N93.9 - Abnormal uterine and vaginal bleeding, unspecified
== END 2023-07-02 13:17 | disposition home or self-care (01) ==
LOC: HO.HWS 13:05
PROVIDERS: PCP Internal Medicine; Visit Provider Obstetrics & Gynecology
DX: N93.9 Abnormal uterine and vaginal bleeding, unspecified (principal)

== ENCOUNTER → 2023-07-02 13:05 | Outpatient (BNVA) | payer OTHER, SELFPAY | PROVIDERS: PCP Internal Medicine; Visit Provider Obstetrics & Gynecology | DX: N93.9 Abnormal uterine and vaginal bleeding, unspecified (principal) | CPT/HCPCS: 96372; 99211; J1050 ==

== ENCOUNTER 2023-07-16 09:56 | Outpatient (AMB) | payer OTHER, SELFPAY ==
--- NOTE | 2023-07-16 10:37 | MHC.OFFVIS ---
Intake Vital Signs 07/16/23 10:40 Height 5 ft 2 in Weight 226 lb BMI 41.3 BP 108/60 Intake Visit Reasons: Annual Visual Inspector Required: No Information Interpreted: non-clinical & clinical Mortgage Field Inspector: Mortgage Field Inspector Present Accompanied by: Self / Same As Patient Allergies bacitracin [BACITRACIN] Allergy (Mild, Verified 07/16/23 10:41) RASH Is last menstrual period known: Yes (8 years ago) Post menopausal: Yes Patient : No HPI HPI Comments History of Present Illness Details Presenting for annual exam. No complaints. Last Pap/HPV was negative in 08/01 Last Mammogram was BI-RADS 1 in 08/01 No previous screening colonoscopy PFSH Medical History PTSD (post-traumatic stress disorder) Bipolar disorder HPV (human papilloma virus) infection COVID-19 Restless leg syndrome Fibromyalgia Vitamin D deficiency Obesity Asthma Surgical History History of dilatation and curettage History of toe surgery Family History Father Diabetes CVD (cardiovascular disease) Cancer Hypertension Slow to wake up after anesthesia Mother Diabetes CVD (cardiovascular disease) Cancer Maternal Grandmother Lung cancer Maternal Grandfather Gastric cancer Paternal Grandmother Ovarian cancer Paternal Grandfather Esophageal cancer Maternal Aunt Breast cancer Maternal Uncle Colon cancer Sister Mental health disorder Bipolar 1 disorder Slow to wake up after anesthesia Other Arthritis Social History Household Members: Children Housing: House Are you a primary caregiver assisted living to a significant other at home: Yes (children) Do you presently have visiting nurse or other home services: No Alcohol intake: never Patient Tobacco Use Status: Former Tobacco user Quit Date: 2004 Tobacco use type: Cigarette Years Smoked: 2004 stopped e-Cigarette/Vaping Use: Never Used Second Hand Smoke Exposure: Yes service: No Current occupational status: employed 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 Sexual orientation: Straight/Heterosexual Cognitive needs: No Hearing needs: No Vision needs: Yes Female Reproductive History Menstrual Age of Menarche: 13 Duration of menses: 3-5 days control method: progesterone injection Menopause type: natural Total pregnancies: 4 Full term: 2 Ab spontaneous: 2 Date of last pap smear: 07/10/22 History of abnormal pap smear: Yes (2021) History of STI: No Review of Systems Const All systems reviewed & are unremarkable except as noted in HPI and below Card Reports as per HPI Resp Reports as per HPI GI Reports as per HPI and Reports no additional complaints Reports as per HPI Physical Exam Const General: cooperative, healthy appearing and comfortable Chest Chest palpation & inspection: normal inspection of the chest and normal palpation of entire chest wall Breast/axilla inspection: normal inspection of the breasts and normal inspection of the axillae Breast/axilla palpation: normal palpation of the breasts, normal palpation of the axillae and no axillary lymphadenopathy Resp Effort & Inspection: normal respiratory effort Auscultation: clear to auscultation bilaterally Percussion: percussion normal Cardio Palpation: normal PMI Rate: regular rate Rhythm: regular rhythm Heart sounds: no murmurs and no rubs Peripheral pulses: Peripheral pulses 2+ throughout GI Inspection: Yes normal to inspection Palpation (GI): Soft to palpation, nontender, no guarding, not rigid and No hepatosplenomegaly present Percussion: Yes normal to percussion Auscultation: normal bowel sounds Rectal Exam - Female: deferred General: Yes bladder normal to palpation External Female Exam: No lesion Speculum Exam - Vagina: normal appearance of the vagina, normal palpation, normal vaginal discharge and not erythematous Speculum Exam - Cervix: normal appearance of the cervix and normal palpation Bimanual exam- vagina & uterus: normal bimanual exam, normal palpation, uterine size normal, bladder normal to palpation, consistency normal and normal palpation Bimanual Exam- Adnexa, other: normal adnexae, no masses and no tenderness Assessment & Plan Assessment & Plan (1) Well woman exam: Comment: 07/03 History of Pap negative/HPV positive, HPV 16/18 negative followed by negative co testing 07/04 Code(s): Z01.419 - Encounter for gynecological examination (general) (routine) without abnormal findings Plan: Cotesting not indicated this year. Mammogram ordered. Counseled the patient about the recommended dietary allowance of 1000 mg of Calcium & 600 IU of vitamin D. The patient was instructed to perform monthly self-breast exams and to schedule an annual exam in a year; Offer the patient to be referred to GI for screening colonoscopy, the patient would like to think about and get back to us All questions answered and the patient verbalized understanding. Instructed the patient to schedule annual exam in a year Coding Level of Care Code Est Pt Prev Care 40-64y(39687) Diagnoses Well woman exam Z01.419
[2023-07-16 10:40] VITALS: BP 108/60; BMI 41.3
== END 2023-07-16 10:47 | disposition home or self-care (01) ==
LOC: HO.HWS 09:56
PROVIDERS: PCP Internal Medicine; Visit Provider Obstetrics & Gynecology
DX: Z01.419 Encounter for gynecological examination (general) (routine) without abnormal findings (principal)
CPT/HCPCS: 99396

== ENCOUNTER → 2023-07-16 09:56 | Outpatient (BNVA) | payer OTHER, SELFPAY | PROVIDERS: PCP Internal Medicine; Visit Provider Obstetrics & Gynecology ==

== ENCOUNTER 2023-07-29 13:43 | Outpatient (AMB) | payer OTHER, SELFPAY ==
[2023-07-29 13:45] VITALS: BP 132/86; PULSE 85; O2SAT 100; BMI 42.6
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
== END 2023-07-29 15:11 | disposition home or self-care (01) ==
PROVIDERS: PCP Internal Medicine; Visit Provider Internal Medicine
DX: M79.642 Pain in left hand (principal); V89.2XXD Person injured in unspecified motor-vehicle accident, traffic, subsequent encounter; M54.50 Low back pain, unspecified; M54.2 Cervicalgia
CPT/HCPCS: 99213

== ENCOUNTER 2023-09-02 12:21 | Emergency (ER) | payer OTHER, SELFPAY ==
--- NOTE | ~2023-09-02 | XR_ITS ---
EXAMINATION: XR FINGER, RIGHT CLINICAL INFORMATION: Third finger wound COMPARISON: None available. TECHNIQUE: 3 views of the right finger. FINDINGS: Comminuted displaced fracture involving the tuft of the distal phalanx of the third digit. No extension of fracture lines to the distal interphalangeal joint. Mild surrounding soft tissue swelling. No additional fractures are identified.. Alignment is anatomic. Joint spaces are maintained. XR/XR finger RT min 2V IMPRESSION: Comminuted displaced fracture involving the tuft of the distal phalanx of the third digit.
[2023-09-02 12:49] VITALS: BP 144/88; PULSE 84; RESP 18; TEMP 36.6; O2SAT 100; BMI 42.1
--- NOTE | 2023-09-02 12:49 | ED.GENADULT ---
HPI - General Adult General Chief complaint: General Medical Stated complaint: Infected finger? Time Seen by Provider: 09/02/23 13:05 Source: patient Mode of arrival: ambulatory Limitations: no limitations History of Present Illness HPI narrative: 47-year-old female with no significant past medical history presents to the emergency department, with her family, for complaints of erythema, swelling, and clear discharge from the right middle finger for the past several weeks. She reports that she crushed the finger in a door way in May and has been having pain in the finger since. She reports she placed a Band-Aid from the [employer] which created increased itching. She states she was evaluated by her primary care provider who recommended keeping the area dry, however; she states she has had increased clear drainage from the finger. She has been using antibiotic ointment as well as psoriasis cream because of the itching. She denies any fevers, chills, lymphangitis, paresthesias, weakness, or change in range of motion of the hand. pertinent positives and negatives discussed in HPI Related Data Home Medications ?Medication ?Instructions ?Recorded ?Confirmed ascorbate calcium (vitamin C) 500 500 mg PO DAILY 03/17/20 05/29/23 mg tablet cholecalciferol (vitamin D3) 25 25 mcg PO DAILY 03/17/20 05/29/23 mcg (1,000 unit) capsule cyanocobalamin (vitamin B-12) 1,000 mcg PO DAILY 03/17/20 05/29/23 1,000 mcg capsule folic acid 1 mg tablet 1 mg PO DAILY 03/17/20 05/29/23 Previous Rx's ?Medication ?Instructions ?Recorded sennosides 8.6 mg-docusate sodium 2 tab-cap (2 x 8.6-50 mg) PO 01/15/22 50 mg tablet (Senna-S) BEDTIME 30 days #60 tabs lamotrigine 25 mg tablet 50 mg (2 x 25 mg) PO BID 90 days 07/30/22 #360 tabs clonidine HCl 0.1 mg tablet 0.1 mg PO TID PRN anxiety 90 days 09/26/22 #270 tabs albuterol sulfate 90 mcg/actuation 2 puff PO Q4-6H PRN shortness of 11/16/22 aerosol inhaler breath or wheezing #8.5 grams amitriptyline 25 mg tablet 25 mg PO BEDTIME 90 days #90 tabs 01/29/23 diclofenac sodium 1 % topical gel 4 g topical QID #100 grams 02/07/23 (Voltaren Arthritis Pain) ropinirole 0.25 mg tablet 0.25 mg PO BEDTIME #90 tabs 05/06/23 omeprazole 20 mg capsule,delayed 20 mg PO DAILY #90 caps 05/08/23 release acetaminophen 500 mg tablet 500 mg PO Q6H PRN pain #30 tabs 05/27/23 (Tylenol Extra Strength) oxycodone-acetaminophen 5 mg-325 1 tab PO Q12H PRN pain 7 days #20 06/05/23 mg tablet (Percocet) tabs cyclobenzaprine 10 mg tablet 10 mg PO TID PRN muscle spasm #30 07/01/23 tabs ibuprofen 600 mg tablet 600 mg PO Q6H PRN pain #30 tabs 07/01/23 medroxyprogesterone 150 mg/mL 150 mg IM [id number] #1 mL 07/11/23 intramuscular suspension (Depo-Provera) cephalexin 500 mg capsule 500 mg PO QID 10 days #40 caps 09/02/23 Allergies Allergy/AdvReac Type Severity Reaction Status Date / Time bacitracin [BACITRACIN] Allergy Mild RASH Verified 09/02/23 12:51 Review of Systems Review of Systems: Yes all other systems are reviewed and are negative PMFSH Past Medical History Medical History PTSD (post-traumatic stress disorder) Bipolar disorder HPV (human papilloma virus) infection COVID-19 Restless leg syndrome Fibromyalgia Vitamin D deficiency Obesity Asthma Surgical History History of dilatation and curettage History of toe surgery Family History Family History Father Diabetes CVD (cardiovascular disease) Cancer Hypertension Slow to wake up after anesthesia Mother Diabetes CVD (cardiovascular disease) Cancer Maternal Grandmother Lung cancer Maternal Grandfather Gastric cancer Paternal Grandmother Ovarian cancer Paternal Grandfather Esophageal cancer Maternal Aunt Breast cancer Maternal Uncle Colon cancer Sister Mental health disorder Bipolar 1 disorder Slow to wake up after anesthesia Other Arthritis Social History Social History Household Members: Children Housing: House Are you a primary primary care nurse practitioner to a significant other at home: Yes (children) Do you presently have visiting nurse or other home services: No Alcohol intake: never Patient Tobacco Use Status: Former Tobacco user Quit Date: 2004 Tobacco use type: Cigarette Years Smoked: 2004 stopped e-Cigarette/Vaping Use: Never Used Second Hand Smoke Exposure: Yes Advance Directives: No Advance Directives Information Provided: Yes Do you have a plan to hurt others: No Plan service: No Current occupational status: employed 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 GENERAL APPEARANCE: A&0 x 4, generally well appearing, no acute distress HENMT: Normal to inspection, atraumatic, face symmetrical. Normal external ears, nose, and oropharynx clear. EYE: PERRLA, EOM intact, structures appear normal NECK: Supple without stiffness or restricted ROM. HEART: Normal rate and regular rhythm, normal S1/S2, no M/R/G LUNGS: LS CTA, moving air well. Able to speak in complete sentences. No crackles, wheezes, or rhonchi auscultated BACK: No CVAT, no obvious deformity EXTREMITIES: Moving all extremities without difficulty. Normal capillary refill. Swelling and erythema with serous fluid noted at right middle finger NEUROLOGICAL: Alert and oriented, moving all 4 extremities with equal strength. CN not formally tested but appearing grossly intact. Observed to ambulate with normal gait. Cognition normal SKIN: Warm and dry without any lesions, rash, or visible sores Course Course Course Narrative: This is an RME: Additional HPI, ROS, PE not included below will be deferred to primary provider. This is a 47 year old female, the history of GERD, bipolar, HPV, asthma, who presents emergency department complaints of right 3rd finger wound. This has been ongoing for the last several months however noticed over the last 2 weeks been weeping, increased swelling, pain. She has no fever or chills. Plan: X-ray, further ER evaluation needed. Medications Administered Discontinued Medications Generic Name Dose Route Start Last Admin Trade Name Freq PRN Reason Stop Dose Admin Cephalexin HCl 500 mg 09/02/23 13:48 09/02/23 14:09 Cephalexin 500 Mg Capsule PO 09/02/23 13:49 500 mg ONCE ONE Administration Medical Decision Making Medical Decision Making MDM Narrative: Old records reviewed for previous imaging, lab studies, ECGs, and notes. Patient was assessed the emergency department with no acute distress or toxicity noted. XR showing a tuft fracture of the right middle finger, per my interpretation. Radiologist remarks in a community displaced fracture involving the tuft of the distal phalanx of the 3rd digit of the right hand. Patient's swelling and erythema consistent with cellulitis of the finger. Plan for 10 day course of cephalexin with 1st dose given here in the emergency department. Patient educated follow-up with primary care provider in addition to Orthopedics with contact information provided. Patient is safe for discharge at this time with plan for [id number] Tylenol and/or NSAID such as ibuprofen or naproxen for fever/discomfort with dosing as per packaging. HPI, PE, diagnostics, and plan discussed with patient and family with no unanswered questions at this time. Strict return precautions given to return to the emergency department with new, worsening, or concerning emergent symptoms. Recommended to follow-up with there primary care provider in 24-48 hours for further treatment and management. Differential Diagnosis Differential Diagnoses: The differential diagnosis associated with the presentation includes But not limited to fracture, dislocation, strain, sprain, herpes miguel, paronychia, cellulitis, abscess, contact dermatitis, sepsis, malignancy Independent Interpretation I performed an independent interpretation of an: Plain X-Ray Interpretation: Showing evidence of an acute fracture, per my interpretation. Independent Historian Clinical information obtained from an independent historian. History obtained from or confirmed by: Parent Discharge Plan Discharge Clinical Impression: Cellulitis of right middle finger, Closed fracture of tuft of distal phalanx of left middle finger Patient Disposition: Home, Self-Care Instructions: Finger Fracture (ED), Cellulitis (ED) Prescriptions: New cephalexin 500 mg capsule 500 mg PO QID 10 Days Qty: 40 0RF No Action clonidine HCl 0.1 mg tablet 0.1 mg PO TID PRN (Reason: anxiety) 90 Days Qty: 270 1RF albuterol sulfate 90 mcg/actuation HFA aerosol inhaler 2 puff PO Q4-6H PRN (Reason: shortness of breath or wheezing) Qty: 8.5 0RF amitriptyline 25 mg tablet 25 mg PO BEDTIME 90 Days Qty: 90 1RF ropinirole 0.25 mg tablet 0.25 mg PO BEDTIME Qty: 90 2RF omeprazole 20 mg capsule,delayed release(DR/EC) 20 mg PO DAILY Qty: 90 1RF medroxyprogesterone [Depo-Provera] 150 mg/mL suspension 150 mg IM [id number] Qty: 1 3RF acetaminophen [Tylenol Extra Strength] 500 mg tablet 500 mg PO Q6H PRN (Reason: pain) Qty: 30 0RF folic acid 1 mg tablet 1 mg PO DAILY ascorbate calcium (vitamin C) 500 mg tablet 500 mg PO DAILY cholecalciferol (vitamin D3) 25 mcg (1,000 unit) capsule 25 mcg PO DAILY cyanocobalamin (vitamin B-12) 1,000 mcg capsule 1,000 mcg PO DAILY sennosides-docusate sodium [Senna-S] 8.6-50 mg tablet 2 tab-cap PO BEDTIME 30 Days Qty: 60 3RF lamotrigine 25 mg tablet 50 mg PO BID 90 Days Qty: 360 2RF cyclobenzaprine 10 mg tablet 10 mg PO TID PRN (Reason: muscle spasm) Qty: 30 0RF ibuprofen 600 mg tablet 600 mg PO Q6H PRN (Reason: pain) Qty: 30 0RF diclofenac sodium [Voltaren Arthritis Pain] 1 % gel 4 g topical QID Qty: 100 2RF Rx Instructions: apply to single knee, ankle, foot; for foot includes sole/toes/top of foot oxycodone-acetaminophen [Percocet] 5-325 mg tablet 1 tab PO Q12H PRN (Reason: pain) 7 Days Qty: 20 0RF Rx Instructions: Partial Fill upon patient request. Referrals: [facility] – [place], [place] [facility] [Provider Group] Connie Young MD [Primary Care Provider] - Interventions: ED Discharge Assessment Last Done: 09/02/23 14:36 Discharge Date/Time: 09/02/23 14:36 Print Language: Serbian
[2023-09-02] MEDS: cephALEXin 500 MG CAPSULE PO (14:09)
[2023-09-02 14:36] VITALS: BP 138/56; PULSE 80; RESP 18; TEMP 36.6; O2SAT 99
== END 2023-09-02 14:36 | disposition home or self-care (01) ==
PROVIDERS: Emergency Provider Emergency Medicine; PCP Internal Medicine
DX: L03.011 Cellulitis of right finger (principal); S62.632A Displaced fracture of distal phalanx of right middle finger, initial encounter for closed fracture; W23.0XXA Caught, crushed, jammed, or pinched between moving objects, initial encounter; Y93.9 Activity, unspecified; Y92.9 Unspecified place or not applicable; Y99.9 Unspecified external cause status
CPT/HCPCS: 73140; 99282; 99283

== ENCOUNTER 2023-09-09 08:06 | Outpatient (REF) | payer OTHER, SELFPAY ==
--- NOTE | ~2023-09-09 | XR_ITS ---
EXAMINATION: XR HAND, RIGHT CLINICAL INFORMATION: Pain in unspecified hand. COMPARISON: 09/02/2023 TECHNIQUE: PA, lateral, and oblique views of the right hand. FINDINGS: Redemonstration of a comminuted displaced fracture involving the tuft of the distal phalanx of the third digit. Persistent swelling of the surrounding soft tissues. XR/XR hand RT min 3V IMPRESSION: Redemonstration of a comminuted displaced fracture involving the tuft of the distal phalanx of the third digit.
== END 2023-09-09 08:07 | disposition home or self-care (01) ==
LOC: HO.HOSX 08:06
PROVIDERS: Visit Provider Physician Assistant
DX: M79.644 Pain in right finger(s) (principal); L03.113 Cellulitis of right upper limb; S67.21XD Crushing injury of right hand, subsequent encounter; W23.0XXD Caught, crushed, jammed, or pinched between moving objects, subsequent encounter
CPT/HCPCS: 73130; 99212

== ENCOUNTER 2023-09-09 14:22 | Outpatient (AMB) | payer OTHER, SELFPAY ==
--- NOTE | 2023-09-09 14:26 | A.OFFVIS_ITS ---
Vital Signs 09/09/23 14:27 Height 5 ft 2 in Weight 229 lb BMI 41.9 Intake Visit Reasons: New Pt - right middle finger, DOI 05/2023 Intake Note: Denita is a 47 year old right hand dominant female who presents today as a new patient for a evaluation of her right middle finger pain, DOI 05/2023. Patient was seen in the ED on 09/02/23. She reports that she crushed her finger in a door and has been having pain in the finger since. Currently is having feeling soreness and the infection that she had is getting better over time. Having numbness on the tip of the middle finger since 05/2023. Allergies bacitracin [BACITRACIN] Allergy (Mild, Verified 09/09/23 14:27) RASH HPI HPI New Pt - right middle finger, DOI 05/2023: Details: 47-year-old right hand dominant female who presents in the office today, as a new patient, for an evaluation of right middle finger pain with drainage. Patient presented to the ED on 09/02/2023 status post a complaint of erythema, edema, and clear drainage for a week. She reported she crushed the right middle finger in a doorway in 05/2023 and has been having pain in the finger since. She reported she placed a Band-Aid from the [employer] store which created increased itching. She stated she was evaluated by her PCP who recommended keeping the area dry, however; she states she has had increased clear drainage from the finger. She has been using antibiotic ointment as well as psoriasis cream because of the itching. X-rays were obtained. Patient was prescribed Cephalexin 500 mg PO QID for 10 days. While in the office today the patient reports crushing her right middle digit with a door in 05/2023. She reports pain since the injury. She claims to have soreness. She reports the infection is getting better over time. She confirms numbness on the tip of the middle finger since 05/2023. [facility] Medical History PTSD (post-traumatic stress disorder) Bipolar disorder HPV (human papilloma virus) infection COVID-19 Restless leg syndrome Fibromyalgia Vitamin D deficiency Obesity Asthma Surgical History History of dilatation and curettage History of toe surgery Family History Father Diabetes CVD (cardiovascular disease) Cancer Hypertension Slow to wake up after anesthesia Mother Diabetes CVD (cardiovascular disease) Cancer Maternal Grandmother Lung cancer Maternal Grandfather Gastric cancer Paternal Grandmother Ovarian cancer Paternal Grandfather Esophageal cancer Maternal Aunt Breast cancer Maternal Uncle Colon cancer Sister Mental health disorder Bipolar 1 disorder Slow to wake up after anesthesia Other Arthritis Social History Household Members: Children Housing: House Are you a primary home care companion to a significant other at home: Yes (children) Do you presently have visiting nurse or other home services: No Alcohol intake: never Patient Tobacco Use Status: Former Tobacco user Quit Date: 2004 Tobacco use type: Cigarette Years Smoked: 2004 stopped e-Cigarette/Vaping Use: Never Used Second Hand Smoke Exposure: Yes service: No Current occupational status: employed 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 Sexual orientation: Straight/Heterosexual Cognitive needs: No Hearing needs: No Vision needs: Yes Female Reproductive History Menstrual Age of Menarche: 13 Review of Systems Const All systems reviewed & are unremarkable except as noted in HPI and below Physical Exam Vital Signs: BMI result Body Mass Index 41.9 Const General: cooperative and no acute distress Orientation/consciousness: patient oriented x3 Resp Effort & Inspection: normal respiratory effort and able to speak in complete sentences Cardio Peripheral pulses: Peripheral pulses 2+ throughout Skin General skin exam: no rashes or lesions noted Neuro General: patient oriented x3 Extrem Other: Right hand middle finger has honey crusted dry skin appearance at the dorsal aspect of the dip distally. No active weeping. No purulent discharge. reports slight numbness at the fingertip at the finger pad. Capillary refill is brisk and there is no nail bed disruption currently. Assessment & Plan Assessment & Plan (1) Cellulitis of right hand: Comment: Right middle finger Code(s): L03.113 - Cellulitis of right upper limb Category: Medical Plan Ms. Nguyen is a 47-year-old right hand dominant female who presents in the office today, as a new patient, for an evaluation of right middle finger pain with drainage. Patient presented to the ED on 09/02/2023 status post a complaint of erythema, edema, and clear drainage for a week. She reported she crushed the right middle finger in a doorway in 05/2023 and has been having pain in the finger since. She reported she placed a Band-Aid from the [employer] store which created increased itching. She stated she was evaluated by her PCP who recommended keeping the area dry, however; she states she has had increased clear drainage from the finger. She has been using antibiotic ointment as well as psoriasis cream because of the itching. X-rays were obtained. Patient was prescribed Cephalexin 500 mg PO QID for 10 days. While in the office today the patient reports crushing her right middle digit with a door in 05/2023. She reports pain since the injury. She claims to have soreness. She reports the infection is getting better over time. She confirms numbness on the tip of the middle finger since 05/2023. Discussed the case with Dr. Farris who was available to see the patient with me while in the office today and a collaborative treatment plan was made. I will send in a new prescription to extend the patient?s Cephalexin 500 mg PO QID for 10 additional days due to the patient reporting this is helping relieve her symptoms. I would like the patient to follow up in 2 weeks to discuss if she is continuing to improve in her symptoms. However, I encouraged her to schedule a follow up with her PCP as this is currently a problem best suited for their treatment. Follow up will be in 2 weeks, or sooner if needed. X-rays of the right hand which were obtained while in the office today and were reviewed by me, Jemima Kent PA-C, redemonstrated a history of a tuft fracture. No evidence of osteomyelitis. X-rays of the right hand, obtained on 09/02/2023, revealed: Comminuted displaced fracture involving the tuft of the distal phalanx of the third digit. Orders: Orders XR hand RT min 3V 09/09/23 M79.643 - Pain in unspecified hand Medications: Refilled cephalexin 500 mg PO QID 40 caps 0RF 10 days Patient Instructions: Scribed by Lisa Sims biomedical engineering aide, for Jemima Kent PA-C on 09/09/2023 at 2:24 pm, EST. Coding Level of Care Code New Pt Level 4 (11254) Diagnoses Cellulitis of right hand L03.113
[2023-09-09 14:27] VITALS: BMI 41.9
== END 2023-09-09 15:28 | disposition home or self-care (01) ==
PROVIDERS: PCP Internal Medicine; Visit Provider Physician Assistant
DX: S62.632A Displaced fracture of distal phalanx of right middle finger, initial encounter for closed fracture (principal)
CPT/HCPCS: 99214

== ENCOUNTER 2023-09-17 08:52 | Outpatient (REF) | payer OTHER, SELFPAY | END 2023-09-17 08:53 | disposition home or self-care (01) | LOC: HO.MAMMO 08:52 | PROVIDERS: PCP Internal Medicine; Visit Provider Internal Medicine | DX: Z12.31 Encounter for screening mammogram for malignant neoplasm of breast (principal) | CPT/HCPCS: 77063; 77067 ==

== ENCOUNTER → 2023-09-17 09:15 | Outpatient (BNV) | payer OTHER, SELFPAY | PROVIDERS: PCP Internal Medicine; Visit Provider Radiology Diagnostic Radiology | DX: Z12.31 Encounter for screening mammogram for malignant neoplasm of breast (principal) | CPT/HCPCS: 77063; 77067 ==

== ENCOUNTER 2023-09-23 12:57 | Outpatient (AMB) | payer OTHER, SELFPAY ==
--- NOTE | 2023-09-23 12:58 | A.OFFVIS_ITS ---
Intake Visit Reasons: OV-right middle finger, DOI 05/2023 Intake Note: Denita is a 47 year old right hand dominant female who presents today as a new patient for a evaluation of her right middle finger pain, DOI 05/2023. Patient reports she is doing better. She expresses that she is still having numbness in her middle finger. Allergies bacitracin [BACITRACIN] Allergy (Mild, Verified 09/23/23 12:59) RASH HPI HPI OV-right middle finger, DOI 05/2023: Details: 47-year-old female who presents in the office today for a follow up of right hand cellulitis, which presented in 08/2023. I last saw the patient in the office on 09/09/2023. She was given a prescription for Cephalexin 500 mg PO QID for 10 additional days due to the patient reporting this is helping relieve her symptoms. I encouraged her to schedule a follow up with her PCP as this is currently a problem best suited for their treatment. While in the office today the patient states she is doing better but still has some numbness in the middle finger. [facility] Medical History PTSD (post-traumatic stress disorder) Bipolar disorder HPV (human papilloma virus) infection COVID-19 Restless leg syndrome Fibromyalgia Vitamin D deficiency Obesity Asthma Surgical History History of dilatation and curettage History of toe surgery Family History Father Diabetes CVD (cardiovascular disease) Cancer Hypertension Slow to wake up after anesthesia Mother Diabetes CVD (cardiovascular disease) Cancer Maternal Grandmother Lung cancer Maternal Grandfather Gastric cancer Paternal Grandmother Ovarian cancer Paternal Grandfather Esophageal cancer Maternal Aunt Breast cancer Maternal Uncle Colon cancer Sister Mental health disorder Bipolar 1 disorder Slow to wake up after anesthesia Other Arthritis Social History Household Members: Children Housing: House Are you a primary senior resident care director to a significant other at home: Yes (children) Do you presently have visiting nurse or other home services: No Alcohol intake: never Patient Tobacco Use Status: Former Tobacco user Quit Date: 2004 Tobacco use type: Cigarette Years Smoked: 2004 stopped e-Cigarette/Vaping Use: Never Used Second Hand Smoke Exposure: Yes service: No Current occupational status: employed 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 Sexual orientation: Straight/Heterosexual Cognitive needs: No Hearing needs: No Vision needs: Yes Female Reproductive History Menstrual Age of Menarche: 13 Review of Systems Const All systems reviewed & are unremarkable except as noted in HPI and below Physical Exam Const General: cooperative, healthy appearing and no acute distress Resp Effort & Inspection: normal respiratory effort and able to speak in complete sentences Cardio Rate: regular rate Peripheral pulses: Peripheral pulses 2+ throughout GI Palpation (GI): Soft to palpation Skin Lesions: no lesions Rashes: no rashes Extrem Other: Right hand: Normal to inspection. No ecchymosis, erythema, or edema. Able to perform full finger flexion, extension, abduction, adduction, finger cross, okay sign, and thumbs up without deficit. Able to make a closed fist. Sensation intact. Capillary refill is brisk. Radial pulse intact. Area of concern that had disruption of the skin, has completely healed with no evidence of remaining infection. Assessment & Plan Assessment & Plan (1) Cellulitis of right hand: Comment: Right middle finger Code(s): L03.113 - Cellulitis of right upper limb Category: Medical Plan Ms. Nguyen is a 47-year-old female who presents in the office today for a follow up of right hand cellulitis, which presented in 08/2023. I last saw the patient in the office on 09/09/2023. She was given a prescription for Cephalexin 500 mg PO QID for 10 additional days due to the patient reporting this is helping relieve her symptoms. I encouraged her to schedule a follow up with her PCP as this is currently a problem best suited for their treatment. While in the office today the patient states she is doing better but still has some numbness in the middle finger. Patient will continue her course of antibiotics until they are completed. I educated that patient that should she have symptoms she should contact her PCP for further evaluation and treatment. She does still report some mild numbness at the DIP distally, which may remain depending on the amount of damage that was done to the distal nerve. Patient understands and accepts this. Follow up will be PRN, or sooner if needed. Patient Instructions: Scribed by анна Acosta scribe, for Jemima Kent PA-C on 09/23/2023 at 1:13 pm, EST. Coding Level of Care Code Est Pt Level 3 (70139) Diagnoses Cellulitis of right hand L03.113
== END 2023-09-23 13:03 | disposition home or self-care (01) ==
PROVIDERS: PCP Internal Medicine; Visit Provider Physician Assistant
DX: L03.113 Cellulitis of right upper limb (principal)
CPT/HCPCS: 99213

== ENCOUNTER → 2023-09-23 12:57 | Outpatient (BNVA) | payer OTHER, SELFPAY | PROVIDERS: PCP Internal Medicine; Visit Provider Physician Assistant | DX: L03.113 Cellulitis of right upper limb (principal) | CPT/HCPCS: 99212 ==

== ENCOUNTER 2023-10-01 10:45 | Outpatient (AMB) | payer OTHER, SELFPAY ==
[2023-10-01 11:11] VITALS: BP 122/76; PULSE 79; RESP 16; O2SAT 99; BMI 41.9
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
== END 2023-10-01 12:01 | disposition home or self-care (01) ==
PROVIDERS: PCP Internal Medicine; Visit Provider Psychiatry & Neurology Neurology
DX: G43.E09 Chronic migraine with aura, not intractable, without status migrainosus (principal); R90.89 Other abnormal findings on diagnostic imaging of central nervous system; R06.83 Snoring; G47.10 Hypersomnia, unspecified
CPT/HCPCS: 99204; G2211

== ENCOUNTER → 2023-10-01 10:45 | Outpatient (BNVA) | payer OTHER, SELFPAY | PROVIDERS: PCP Internal Medicine; Visit Provider Psychiatry & Neurology Neurology | DX: G43.E09 Chronic migraine with aura, not intractable, without status migrainosus (principal); R90.89 Other abnormal findings on diagnostic imaging of central nervous system; R06.83 Snoring; G47.10 Hypersomnia, unspecified | CPT/HCPCS: 99202 ==

== ENCOUNTER 2023-10-07 14:21 | Outpatient (AMB) | payer OTHER, SELFPAY ==
[2023-10-07 15:15] VITALS: BMI 41.8
--- NOTE | 2023-10-07 15:15 | AM.OFFVISNUR ---
Intake Vital Signs 10/07/23 15:15 Height 5 ft 2 in Weight 103.646 kg BMI 41.8 Intake Visit Reasons: Depo Allergies bacitracin [BACITRACIN] Allergy (Mild, Verified 09/23/23 12:59) RASH Nursing Note Denita arndt here today for her scheduled Depo-Provera inj. Pt has no complaints with Depo-Provera inj. Follow up in 12 wks for next inj. Office Procedures Depo Questionnaire If YES to any of the following questions, please consult a provider. Date of last injection: 07/02/23 Date of last gynecology exam: 07/16/23 Menstrual pattern since last injection has been: Not Applicable Irregular bleeding?: No Breast lumps or other breast changes?: No Changes in weight or appetite?: No Depression or changes in mood?: No Abnormal hair growth or loss?: No Skin problems (rash, acne, discoloration)?: No Pain at the injection site?: No Headaches?: No Nervousness?: No Abdominal pain or cramping?: No Dizziness or nausea?: No Fatigue or weakness?: No Decrease in sexual drive?: No Chest pain or shortness of breath?: No Swelling in arms or legs?: No Form completed by?: Rah Bartlett LPN Office Meds Depo-Provera 150 mg/mL intramuscular syringe Performing Provider: Lion Elizondo MD Performing Location: [facility] Administered by: Khushbu Bartlett LPN on 10/07/23 15:18 Dose Route Admin Location Dispensed Lot Number Expiration Date [facility] [employer] 150 mg IM left gluteus 1 mL [id number] 08/09/25 11441-345-65 [facility] Coding Level of Care Code Established Pt Est Pt Level 1 (91704) Patient Type Established History Problem Focused Exam Problem Focused Medical Decision Making Straight Forward Time Spent (min) 20 Assessment & Plan Assessment & Plan Orders: Orders AMB Medroxyprogesterone Injection Patient Supplied Today Z30.42 - Encounter for surveillance of injectable contraceptive Medications: New Depo-Provera (medroxyprogesterone) 150 mg IM ONCE 1 mL 0RF NS Z30.42 - Encounter for surveillance of injectable contraceptive
== END 2023-10-07 15:06 | disposition home or self-care (01) ==
LOC: HO.HWS 14:21
PROVIDERS: PCP Internal Medicine; Visit Provider Obstetrics & Gynecology
DX: Z30.42 Encounter for surveillance of injectable contraceptive (principal)

== ENCOUNTER → 2023-10-07 14:21 | Outpatient (BNVA) | payer OTHER, SELFPAY | PROVIDERS: PCP Internal Medicine; Visit Provider Obstetrics & Gynecology | DX: Z30.42 Encounter for surveillance of injectable contraceptive (principal) | CPT/HCPCS: 96372; 99211; J1050 ==

== ENCOUNTER → 2023-10-31 20:30 | Outpatient (REF) | payer OTHER, SELFPAY | LOC: HO.SL 20:30 | PROVIDERS: PCP Internal Medicine; Visit Provider Psychiatry & Neurology Neurology | DX: R06.83 Snoring (principal); G47.10 Hypersomnia, unspecified; G43.E09 Chronic migraine with aura, not intractable, without status migrainosus | CPT/HCPCS: 95810 ==

== ENCOUNTER → 2023-10-31 23:03 | Outpatient (BNV) | payer OTHER, SELFPAY | PROVIDERS: PCP Internal Medicine; Visit Provider Psychiatry & Neurology Neurology | DX: R06.83 Snoring (principal) | CPT/HCPCS: 95810 ==

== ENCOUNTER 2023-12-03 10:07 | Outpatient (REF) | payer OTHER, SELFPAY ==
--- NOTE | ~2023-12-03 | MR_ITS ---
EXAMINATION: MR BRAIN WITHOUT CONTRAST CLINICAL INFORMATION: Brain tumor follow-up COMPARISON: CT head on 05/27/2023 TECHNIQUE: MRI of the brain was obtained using routine sequences without contrast. FINDINGS: No acute intracranial hemorrhage or infarct. No edema, midline shift or hydrocephalus. No acute extra-axial fluid collections. Previously identified extra-axial calcified lesion along the left frontal convexity is less conspicuous on today's study. The osseous structures are unremarkable. The pituitary gland, pineal gland and remaining midline structures are unremarkable. No orbital pathology. Moderate mucosal thickening of the paranasal sinuses. The mastoid air cells are clear. MR/MR head/brain wo con IMPRESSION: Previously identified extra-axial calcified lesion along the left frontal convexity is less conspicuous on this examination. Please note that evaluation is significantly limited in the absence of intravenous contrast. Otherwise, unremarkable MRI brain. Electronically signed by: Howard Styles MD 01/01/2024 02:58 PM EDT
== END 2023-12-03 10:08 | disposition home or self-care (01) ==
LOC: HO.MRI 10:07
PROVIDERS: PCP Internal Medicine; Visit Provider Psychiatry & Neurology Neurology
DX: R90.89 Other abnormal findings on diagnostic imaging of central nervous system (principal)
CPT/HCPCS: 70551

== ENCOUNTER 2023-12-04 08:26 | Emergency (ER) | payer OTHER, SELFPAY ==
--- NOTE | ~2023-12-04 | CT_ITS ---
EXAMINATION: CT ABDOMEN AND PELVIS WITH CONTRAST CLINICAL INFORMATION: 48-year-old female with left lower quadrant abdominal pain COMPARISON: 05/27/2023 TECHNIQUE: Multidetector volumetric images were obtained from the superior aspect of the liver through the pubic symphysis following administration 85 mL of Omnipaque 350 intravenous contrast. Sagittal and coronal reformatted images were obtained on the technologist's workstation. Oral contrast: No This CT examination was performed using dose optimization techniques as appropriate, variously including the following: *Automated exposure control *Adjustment of mA and/or kV according to patient size (this includes techniques or standardized protocols for targeted exams where dose is matched to indication/reason for exam; i.e. extremities or head) *Use of iterative reconstruction technique DLP: 757 mGy-cm FINDINGS: LUNG BASES: The visualized lung bases are unremarkable. LIVER, GALLBLADDER, AND BILIARY TREE: The liver is normal in size, shape, and attenuation. No focal hepatic lesion or biliary ductal dilatation is present. The gallbladder is unremarkable with no evidence of radiopaque gallstones, gallbladder wall thickening, or obvious pericholecystic inflammatory changes. PANCREAS: Unremarkable. SPLEEN: Unremarkable. ADRENAL GLANDS: Unremarkable. KIDNEYS AND URETERS: The kidneys are normal in size, shape, and attenuation. No hydronephrosis, hydroureter, or calculi seen. No perinephric stranding. BLADDER: Unremarkable. GASTROINTESTINAL TRACT: The small and large bowel are unremarkable. The appendix is unremarkable. ABDOMINAL WALL: No significant hernia is appreciated. LYMPH NODES: Normal. VASCULAR: Unremarkable. PELVIC VISCERA: Unremarkable. OSSEOUS STRUCTURES: Unremarkable. CT/CT abdomen pelvis w IV con IMPRESSION: No significant abnormality. No explanation for left lower quadrant pain or diarrhea Fleischner guidelines were followed.
--- NOTE | ~2023-12-04 | XR_ITS ---
EXAMINATION: XR CHEST CLINICAL INFORMATION: Chest pain COMPARISON: Chest CT from 05/27/2023 TECHNIQUE: Frontal view of the chest was obtained. FINDINGS: No significant abnormality is noted involving the heart, lungs, mediastinum, bony thorax or soft tissues. XR/XR chest 1V IMPRESSION: Unremarkable examination.
--- NOTE | 2023-12-04 08:27 | ECG_ITS ---
Test Reason : CHEST PAINS Blood Pressure : / mmHG Vent. Rate : 070 BPM Atrial Rate : 070 BPM P-R Int : 138 ms QRS Dur : 076 ms QT Int : 388 ms P-R-T Axes : 023 033 028 degrees QTc Int : 419 ms Normal sinus rhythm Normal ECG When compared with ECG of 27-MAY-2023 18:53, No significant changes seen Referred By: Generic ED Physician Electronically Signed By:RODNEY DENNEY
[2023-12-04 08:38] VITALS: BP 142/92; PULSE 79; RESP 16; TEMP 37.1; O2SAT 97; BMI 41.1
--- NOTE | 2023-12-04 08:57 | ED.GENADULT ---
HPI - General Adult General Chief complaint: General Medical Stated complaint: Blood in stool/Chest pain Time Seen by Provider: 12/04/23 08:51 Source: patient Mode of arrival: ambulatory Limitations: no limitations History of Present Illness ED Provider: Mariama Mcbride PA-C HPI narrative: 48-year-old female with a history of anxiety, fibromyalgia, lumbar radiculopathy, obesity, GERD, asthma who presents to the ER for evaluation lower abdominal pain that radiates to her back that started on the evening of 12/01. She states she developed multiple episodes of loose stools after that. Yesterday when she wiped she had bright red blood on the toilet paper. No blood in the bowl. She was afraid to eat after that. She denies any history of hemorrhoids or history of GI bleeding in the past. She has never had a colonoscopy. She reports chronic constipation is an issue for her but does not think she ever has had a hemorrhoid. She denies any nausea or vomiting. She reports developing some diffuse chest discomfort yesterday as well. It does not radiate and has been constant. She woke up today with a migraine which is usual for her. She has pain behind her left eye which is also usual for her typical migraines. No vision changes. No shortness a breath or difficulty breathing. No recent fever or chills. She reports being on 2 migraine medications that make her urine bright yellow. She has increased frequency but not urgency or dysuria. History of UTIs in the past. MD complaint: Abdominal pain, chest pain, headache Onset (ago): day(s) (2) Location: chest and abdomen Radiation: back Severity: moderate Quality: aching Pain Consistency: constant Relieving factors: none Exacerbating factors: none Associated symptoms: chest pain, headaches and loss of appetite Treatments prior to arrival: none Related Data Home Medications ?Medication ?Instructions ?Recorded ?Confirmed ascorbate calcium (vitamin C) 500 500 mg PO DAILY 03/17/20 10/01/23 mg tablet cholecalciferol (vitamin D3) 25 25 mcg PO DAILY 03/17/20 10/01/23 mcg (1,000 unit) capsule cyanocobalamin (vitamin B-12) 1,000 mcg PO DAILY 03/17/20 10/01/23 1,000 mcg capsule folic acid 1 mg tablet 1 mg PO DAILY 03/17/20 10/01/23 Previous Rx's ?Medication ?Instructions ?Recorded sennosides 8.6 mg-docusate sodium 2 tab-cap (2 x 8.6-50 mg) PO 01/15/22 50 mg tablet (Senna-S) BEDTIME 30 days #60 tabs lamotrigine 25 mg tablet 50 mg (2 x 25 mg) PO BID 90 days 07/30/22 #360 tabs clonidine HCl 0.1 mg tablet 0.1 mg PO TID PRN anxiety 90 days 09/26/22 #270 tabs albuterol sulfate 90 mcg/actuation 2 puff PO Q4-6H PRN shortness of 11/16/22 aerosol inhaler breath or wheezing #8.5 grams amitriptyline 25 mg tablet 25 mg PO BEDTIME 90 days #90 tabs 01/29/23 diclofenac sodium 1 % topical gel 4 g topical QID #100 grams 02/07/23 (Voltaren Arthritis Pain) ropinirole 0.25 mg tablet 0.25 mg PO BEDTIME #90 tabs 05/06/23 omeprazole 20 mg capsule,delayed 20 mg PO DAILY #90 caps 05/08/23 release acetaminophen 500 mg tablet 500 mg PO Q6H PRN pain #30 tabs 05/27/23 (Tylenol Extra Strength) cyclobenzaprine 10 mg tablet 10 mg PO TID PRN muscle spasm #30 07/01/23 tabs medroxyprogesterone 150 mg/mL 150 mg IM [id number] #1 mL 07/11/23 intramuscular suspension (Depo-Provera) cephalexin 500 mg capsule 500 mg PO QID 10 days #40 caps 09/09/23 magnesium oxide 400 mg PO BEDTIME #30 tabs 10/01/23 riboflavin (vitamin B2) 400 mg 400 mg PO QAM #30 tabs 10/01/23 tablet sumatriptan succinate 50 mg tablet See Rx Instructions PO .COMPLEX 10/01/23 (Imitrex) #14 tabs topiramate 50 mg tablet 50 mg PO BEDTIME #30 tabs 10/01/23 cefuroxime axetil 250 mg tablet 250 mg PO BID 7 days #14 tabs 12/04/23 Allergies Allergy/AdvReac Type Severity Reaction Status Date / Time bacitracin [BACITRACIN] Allergy Mild RASH Verified 12/04/23 08:39 Review of Systems Review of Systems: Yes all other systems are reviewed and are negative [facility] Past Medical History Medical History (Updated 12/04/23 @ 13:03 by BRIEN Gregory) Hypersomnia Snoring Abnormal CT of brain Chronic migraine with aura PTSD (post-traumatic stress disorder) Bipolar disorder HPV (human papilloma virus) infection COVID-19 Restless leg syndrome Fibromyalgia Vitamin D deficiency Obesity Asthma Surgical History History of dilatation and curettage History of toe surgery Family History Family History Father Diabetes CVD (cardiovascular disease) Cancer Hypertension Slow to wake up after anesthesia Mother Diabetes CVD (cardiovascular disease) Cancer Maternal Grandmother Lung cancer Maternal Grandfather Gastric cancer Paternal Grandmother Ovarian cancer Paternal Grandfather Esophageal cancer Maternal Aunt Breast cancer Maternal Uncle Colon cancer Sister Mental health disorder Bipolar 1 disorder Slow to wake up after anesthesia Other Arthritis Social History Social History Household Members: Children Housing: House Are you a primary career services manager to a significant other at home: Yes (children) Do you presently have visiting nurse or other home services: No Alcohol intake: never Patient Tobacco Use Status: Former Tobacco user Tobacco use type: Cigarette Years Smoked: 2004 stopped e-Cigarette/Vaping Use: Never Used Second Hand Smoke Exposure: Yes Advance Directives: No Advance Directives Information Provided: Yes Do you have a plan to hurt others: No Plan service: No Current occupational status: employed 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 Oriented X3. No acute distress. Head: normocephalic, atraumatic. Eyes: Pupils equal, round and reactive to light. ENT: Pharynx normal. No tonsillar swelling or exudate. Neck: Normal inspection. Neck supple. CVS: Normal heart rate and rhythm. Pulses normal. Respiratory: No respiratory distress. Breath sounds normal. Abdomen: Obese, Soft with left lower quadrant tenderness on deep palpation, no rebound or guarding. Normal active +BS x4 MINNIE: Normal external inspection, no visible hemorrhoids. Normal tone. No palpable internal hemorrhoids, minimal stool in the vault, no visible blood Skin: Skin warm and dry. Normal skin color. Normal skin turgor. No rashes. Extremities: No lower extremity edema. No joint swelling. Neuro/psych: Oriented X 3. No motor deficit. No sensory deficit. CN II-XII intact. Normal speech and cognition. Medications Administered Discontinued Medications Generic Name Dose Route Start Last Admin Trade Name Freq PRN Reason Stop Dose Admin Sodium Chloride 1,000 mls @ 999 mls/hr 12/04/23 10:45 12/04/23 10:55 Ns IV 12/04/23 11:45 999 mls/hr .Q1H1M DEVIKA Administration Iohexol 100 ml 12/04/23 10:51 12/04/23 10:51 Iohexol 350 Mg/Ml 100 Ml Infus..Btl IV 12/04/23 10:52 85 ml ONCE ONE Administration Medical Decision Making Medical Decision Making MDM Narrative: 48-year-old female presenting with multiple complaints today including lower abdominal pain that radiates to the back, diarrhea, chest pain, headaches, darker urine. On arrival to the ER she is hemodynamically stable and no physical distress. Her exam is significant for left lower quadrant tenderness without any rebound or guarding. She denies history of diverticulitis. Her chest pain is not typical for ACS with EKG and troponin were ordered. EKG showing no ischemic changes, normal sinus rhythm. Lab workup performed showing a normal CBC, no evidence of acute blood loss. Her other lab work was unremarkable. Urinalysis with small leukocyte esterase and bacteria are present. This could explain her lower abdominal pain and back pain. CT scan of her abdomen was done with the left lower quadrant tenderness however this was normal. Consider GI bleed study but she was not actively bleeding at the time the scan was performed. Bleeding is most likely hemorrhoidal in nature given her constipation history. No active bleeding hemorrhoids on exam today. Will treat the patient for acute UTI have her follow up with her primary care doctor for further evaluation and treatment. She was given strict return precautions and is stable for discharge home. Differential Diagnosis Differential Diagnoses: The differential diagnosis associated with the presentation includes Diverticulitis, diverticulosis, hemorrhoidal bleeding, infectious colitis, UTI, pyelo, ACS, PE, pneumonia, costochondritis, migraine w/ aura Admission/Observation Consideration of admission/observation: Escalation of care including admission/observation considered Lab Data MDM Lab Attestation statement: I reviewed the patient's lab results. normal CBC, no major metabolic derangement 12/04/23 10:04 12/04/23 10:04 Labs: Lab Results 12/04/23 12/04/23 12/04/23 Range/Units 09:12 09:14 10:04 WBC 8.7 (4.8-10.8) X10*3/uL RBC 4.81 (4.20-5.50) X10*6/uL Hgb 15.1 (12.0-16.0) g/dl Hct 45.6 (37.0-47.0) % MCV 94.8 (80.0-98.0) fL MCH 31.4 (27.0-33.0) pg MCHC 33.1 (31.0-35.0) g/dl RDW 13.4 (11.0-16.0) % Plt Count 312 (160-400) X10*3/uL MPV 10.1 (9.4-12.3) fL Immature Gran % (Auto) 0.3 (0.0-0.4) % Neut % (Auto) 58.2 (45-73) % Lymph % (Auto) 29.8 (20-40) % [place] % (Auto) 7.6 (2-11) % Eos % (Auto) 3.9 (0-4) % Baso % (Auto) 0.2 (0-2) % Lymph # (Auto) 2.6 (1.2-4.9) X10*3/uL [place] # (Auto) 0.7 (0.1-1.2) X10*3/uL Eos # (Auto) 0.3 (0.0-0.4) X10*3/uL Baso # (Auto) 0.0 (0.0-0.2) X10*3/uL Abs Immat Gran (auto) 0.03 (0.00-0.03) X10*3/uL Absolute Neuts (auto) 5.1 (2.0-8.3) x10*3/uL Absolute Nucleated RBC 0.000 (0.0-0.012) X10*3/uL Nucleated RBC % (auto) 0.0 (0.0-0.2) /100WBC Sodium 141 (135-145) mmol/L Potassium 3.5 (3.3-5.1) mmol/L Chloride 111 H (96-108) mmol/L Carbon Dioxide 20 L (22-29) mmol/L Anion Gap 14 (12-20) BUN 7 L (9-16) mg/dL Creatinine 1.12 (0.5-1.4) mg/dL Estim Creat Clear Calc 70.2 Estimated GFR 52 Random Glucose 96 (60-115) mg/dL Calcium 9.6 (8.4-10.2) mg/dL Total Bilirubin 1.2 H (0.0-1.0) mg/dL AST 14 (5-31) U/L ALT 13 (0-31) U/L Alkaline Phosphatase 88 (39-117) U/L Troponin I High Sens < 2.7 (<3.5-17.0) ng/L Total Protein 7.8 (6.5-8.0) g/dL Albumin 4.3 (3.5-5.0) g/dL Lipase 11 (8-78) U/L Urine Color Dark Yellow Urine Appearance Clear Urine pH 6.5 (5.0-9.0) Ur Specific [place] 1.020 (1.005-1.025) Urine Protein Negative (Neg-Trace) mg/dL Urine Glucose (UA) Negative (Negative) mg/dL Urine Ketones Negative (Negative) mg/dL Urine Blood Negative (Negative) Urine Nitrite Negative (Negative) Ur Leukocyte Esterase Small (1+) H (Negative) Urine RBC 0-2 (0-2) /HPF Urine WBC 0-5 (0-5) /HPF Ur Squamous Epith Cells 3-5 (0-2) /HPF Urine Bacteria 1+ (None Seen) Hyaline Casts 0-2 (0-2) /LPF Stool Occult Blood POSITIVE (NEGATIVE) Independent Interpretation I performed an independent interpretation of an: CT Scan Interpretation: no visible ureteral stones, no hydronephrosis, no air fluid levels or dilated loops of bowel, agree w/ radiology read Radiology Impression Discussion of test interpretation with radiology: I have reviewed the radiologist's reading. Radiologist Impression: EXAMINATION: CT ABDOMEN AND PELVIS WITH CONTRAST CLINICAL INFORMATION: 48-year-old female with left lower quadrant abdominal pain COMPARISON: 05/27/2023 TECHNIQUE: Multidetector volumetric images were obtained from the superior aspect of the liver through the pubic symphysis following administration 85 mL of Omnipaque 350 intravenous contrast. Sagittal and coronal reformatted images were obtained on the technologist's workstation. Oral contrast: No This CT examination was performed using dose optimization techniques as appropriate, variously including the following: *Automated exposure control *Adjustment of mA and/or kV according to patient size (this includes techniques or standardized protocols for targeted exams where dose is matched to indication/reason for exam; i.e. extremities or head) *Use of iterative reconstruction technique DLP: 757 mGy-cm FINDINGS: LUNG BASES: The visualized lung bases are unremarkable. LIVER, GALLBLADDER, AND BILIARY TREE: The liver is normal in size, shape, and attenuation. No focal hepatic lesion or biliary ductal dilatation is present. The gallbladder is unremarkable with no evidence of radiopaque gallstones, gallbladder wall thickening, or obvious pericholecystic inflammatory changes. PANCREAS: Unremarkable. SPLEEN: Unremarkable. ADRENAL GLANDS: Unremarkable. KIDNEYS AND URETERS: The kidneys are normal in size, shape, and attenuation. No hydronephrosis, hydroureter, or calculi seen. No perinephric stranding. BLADDER: Unremarkable. GASTROINTESTINAL TRACT: The small and large bowel are unremarkable. The appendix is unremarkable. ABDOMINAL WALL: No significant hernia is appreciated. LYMPH NODES: Normal. VASCULAR: Unremarkable. PELVIC VISCERA: Unremarkable. OSSEOUS STRUCTURES: Unremarkable. CT/CT abdomen pelvis w IV con IMPRESSION: No significant abnormality. No explanation for left lower quadrant pain or diarrhea Fleischner guidelines were followed. External Record Review External record reviewed: Outpatient record and Prior outpatient labs Prescription Management I considered prescription management with: Pain Medication and Antibiotic Chronic Conditions Patient?s care impacted by: Other (fibromyalgia) Critical Care Time Critical Care Time Critical Care Time: No Discharge Plan Discharge Clinical Impression: UTI (urinary tract infection) Qualifiers: Urinary tract infection type: acute cystitis Hematuria presence: without hematuria Qualified Code(s): N30.00 - Acute cystitis without hematuria Patient Disposition: Home, Self-Care Instructions: Urinary Tract Infection in Women (DC) Additional Instructions: Your CT scan today was normal. Your blood counts were normal. You were found to have a urinary tract infection. Take the prescribed antibiotics as directed, complete the entire course and do not miss any doses. Drink plenty of water and stay hydrated. Follow-up with your doctor. If you develop new or worsening symptoms call 911 or come back to the ER for further evaluation. Prescriptions: New cefuroxime axetil 250 mg tablet 250 mg PO BID 7 Days Qty: 14 0RF No Action clonidine HCl 0.1 mg tablet 0.1 mg PO TID PRN (Reason: anxiety) 90 Days Qty: 270 1RF albuterol sulfate 90 mcg/actuation HFA aerosol inhaler 2 puff PO Q4-6H PRN (Reason: shortness of breath or wheezing) Qty: 8.5 0RF amitriptyline 25 mg tablet 25 mg PO BEDTIME 90 Days Qty: 90 1RF ropinirole 0.25 mg tablet 0.25 mg PO BEDTIME Qty: 90 2RF omeprazole 20 mg capsule,delayed release(DR/EC) 20 mg PO DAILY Qty: 90 1RF medroxyprogesterone [Depo-Provera] 150 mg/mL suspension 150 mg IM [id number] Qty: 1 3RF acetaminophen [Tylenol Extra Strength] 500 mg tablet 500 mg PO Q6H PRN (Reason: pain) Qty: 30 0RF folic acid 1 mg tablet 1 mg PO DAILY ascorbate calcium (vitamin C) 500 mg tablet 500 mg PO DAILY cholecalciferol (vitamin D3) 25 mcg (1,000 unit) capsule 25 mcg PO DAILY cyanocobalamin (vitamin B-12) 1,000 mcg capsule 1,000 mcg PO DAILY sennosides-docusate sodium [Senna-S] 8.6-50 mg tablet 2 tab-cap PO BEDTIME 30 Days Qty: 60 3RF lamotrigine 25 mg tablet 50 mg PO BID 90 Days Qty: 360 2RF cyclobenzaprine 10 mg tablet 10 mg PO TID PRN (Reason: muscle spasm) Qty: 30 0RF sumatriptan succinate [Imitrex] 50 mg tablet See Rx Instructions PO .COMPLEX Qty: 14 6RF Rx Instructions: take 1 tab at onset of headache; if no relief may repeat 1 tab after at least 2 hrs; max = 4 tabs/24 hr PO topiramate 50 mg tablet 50 mg PO BEDTIME Qty: 30 6RF magnesium oxide 400 mg magnesium tablet 400 mg PO BEDTIME Qty: 30 6RF riboflavin (vitamin B2) 400 mg tablet 400 mg PO QAM Qty: 30 6RF diclofenac sodium [Voltaren Arthritis Pain] 1 % gel 4 g topical QID Qty: 100 2RF Rx Instructions: apply to single knee, ankle, foot; for foot includes sole/toes/top of foot cephalexin 500 mg capsule 500 mg PO QID 10 Days Qty: 40 0RF Referrals: Po,Connie Petersen MD [Primary Care Provider] - Print Language: Egyptian
[2023-12-04 09:22] LABS: OBS Int Ctl Valid YES; OBS1 POSITIVE (NEGATIVE)
[2023-12-04 09:23] LABS: Appearance Urine Clear; Color Urine Dark Yellow; Glucose Urine UA Negative (Negative); Leukocyte Esterase Urine Small (1+) (Negative); Nitrite Urine Negative (Negative); PH 6.5 (5.0-9.0); UMIC TRIGGER UACC YES; Urine Blood Negative (Negative); Urine Ketones Negative (Negative); Urine Protein Negative (Neg-Trace)
[2023-12-04 09:43] LABS: Bacteria Urine 1+ (None Seen); Hyaline Casts Urine 0-2 /LPF (0-2); RBC Urine 0-2 /HPF (0-2); UACC Culture Trigger YES; WBC Urine 0-5 /HPF (0-5)
[2023-12-04 10:12] LABS: MANUAL DIFF FLAG NO
[2023-12-04 10:15] LABS: Basophils Percent Auto 0.2 % (0-2); Eosinophils Absolute Auto 0.3 X10*3/uL (0.0-0.4); Eosinophils Percent Auto 3.9 % (0-4); Hematocrit 45.6 % (37.0-47.0); Hemoglobin 15.1 g/dl (12.0-16.0); Imm Gran Abs Auto 0.03 X10*3/uL (0.00-0.03); Imm Gran Pct Auto 0.3 % (0.0-0.4); Lymphocytes Absolute Auto 2.6 X10*3/uL (1.2-4.9); Lymphocytes Percent Auto 29.8 % (20-40); Mean Corpuscular HGB Conc 33.1 g/dl (31.0-35.0); Mean Corpuscular Hemoglobin 31.4 pg (27.0-33.0); Mean Corpuscular Volume 94.8 fL (80.0-98.0); Mean Platelet Volume 10.1 fL (9.4-12.3); Monocytes Absolute Auto 0.7 X10*3/uL (0.1-1.2); Monocytes Percent Auto 7.6 % (2-11); Neutrophils Absolute Auto 5.1 x10*3/uL (2.0-8.3); Neutrophils Percent Auto 58.2 % (45-73); Platelet Count 312 X10*3/uL (160-400); Red Blood Count 4.81 X10*6/uL (4.20-5.50); Red Cell Distribution Width 13.4 % (11.0-16.0); White Blood Count 8.7 X10*3/uL (4.8-10.8)
[2023-12-04 10:26] LABS: Lipase 11 U/L (8-78)
[2023-12-04 10:29] LABS: Alanine Aminotransferase 13 U/L (0-31); Albumin Level 4.3 g/dL (3.5-5.0); Alkaline Phosphatase 88 U/L (39-117); Anion Gap 14 (12-20); Aspartate Amino Transferase 14 U/L (5-31); Bilirubin Total 1.2 mg/dL (0.0-1.0); Blood Urea Nitrogen 7 mg/dL (9-16); Calcium 9.6 mg/dL (8.4-10.2); Carbon Dioxide 20 mmol/L (22-29); Chloride 111 mmol/L (96-108); Creatinine Clr Calc Pharmacy 70.2; Estimated Glomerular Filt Rate 52; Glucose Random 96 mg/dL (60-115); Potassium 3.5 mmol/L (3.3-5.1); Sodium 141 mmol/L (135-145); Total Protein 7.8 g/dL (6.5-8.0)
[2023-12-04 10:39] LABS: Troponin-I High Sensitivity < 2.7 ng/L (<3.5-17.0)
[2023-12-04] MEDS: iohexoL 350 MG/ML 100 ML INFUS..BTL IV (10:51)
[2023-12-04] MEDS: 0.9 % Sodium Chloride 1,000 ML 999 ML IV (10:55)
[2023-12-04 13:14] VITALS: BP 142/92; PULSE 79; RESP 16; TEMP 37.1; O2SAT 97
== END 2023-12-04 13:15 | disposition home or self-care (01) ==
PROVIDERS: Physician Assistant; Emergency Provider Emergency Medicine; PCP Internal Medicine
DX: N30.00 Acute cystitis without hematuria (principal); K92.1 Melena; R07.89 Other chest pain; Z79.899 Other long term (current) drug therapy; Z87.891 Personal history of nicotine dependence
CPT/HCPCS: 36415; 71045; 74177; 80053; 81001; 82272; 83690; 84484; 85025; 87086; 93005; 99284; Q9967

== ENCOUNTER → 2023-12-04 08:27 | Outpatient (BNV) | payer OTHER, SELFPAY | PROVIDERS: Emergency Provider Emergency Medicine; PCP Internal Medicine; Visit Provider Internal Medicine | DX: R07.9 Chest pain, unspecified (principal) | CPT/HCPCS: 93010 ==

== ENCOUNTER 2023-12-30 09:02 | Outpatient (AMB) | payer OTHER, SELFPAY ==
--- NOTE | 2023-12-30 09:29 | AM.OFFVISNUR ---
Vital Signs 12/30/23 09:30 Height 5 ft 2 in Weight 99.053 kg BMI 39.9 Intake Visit Reasons: depo Allergies bacitracin [BACITRACIN] Allergy (Mild, Verified 12/04/23 08:39) RASH Nursing Note Denita is here today for her scheduled appt for Depo-Provera. She denies any problems or concerns. follow up in 12 wks for next inj, and in July 2024 for her AG. Office Procedures Depo Questionnaire If YES to any of the following questions, please consult a provider. Date of last injection: 10/07/23 Date of last gynecology exam: 08/05/23 Menstrual pattern since last injection has been: Not Applicable test in office results: Negative Irregular bleeding?: No Breast lumps or other breast changes?: No Changes in weight or appetite?: Yes (weight loss) Abnormal hair growth or loss?: No Skin problems (rash, acne, discoloration)?: No Pain at the injection site?: No Headaches?: No Nervousness?: No Abdominal pain or cramping?: No Dizziness or nausea?: No Fatigue or weakness?: No Decrease in sexual drive?: No Chest pain or shortness of breath?: No Swelling in arms or legs?: No Form completed by?: Rah Bartlett LPN Office Meds Depo-Provera 150 mg/mL intramuscular syringe Performing Provider: Lion Elizondo MD Performing Location: [facility] [place], [place] [facility] Administered by: Khushbu Bartlett LPN on 12/30/23 09:31 Dose Route Admin Location Dispensed Lot Number Expiration Date [facility] [place] [employer] 150 mg IM lt gluteus 1 mL [id number] 05/11/26 44052-829-04 [facility] Assessment & Plan Assessment & Plan Orders: Orders AMB Medroxyprogesterone Injection Patient Supplied Today Z30.9 - Encounter for contraceptive management, unspecified Medications: New Depo-Provera (medroxyprogesterone) 150 mg IM ONCE 1 mL 0RF NS Z30.9 - Encounter for contraceptive management, unspecified
[2023-12-30 09:30] VITALS: BMI 39.9
== END 2023-12-30 09:27 | disposition home or self-care (01) ==
PROVIDERS: PCP Internal Medicine; Visit Provider Obstetrics & Gynecology
DX: Z30.9 Encounter for contraceptive management, unspecified (principal)

== ENCOUNTER → 2023-12-30 09:02 | Outpatient (BNVA) | payer OTHER, SELFPAY | PROVIDERS: PCP Internal Medicine; Visit Provider Obstetrics & Gynecology | DX: Z30.9 Encounter for contraceptive management, unspecified (principal) | CPT/HCPCS: 96372; 99211; J1050 ==

== ENCOUNTER 2024-01-05 09:44 | Outpatient (AMB) | payer OTHER, SELFPAY ==
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
[2024-01-05 09:53] VITALS: BP 122/76; PULSE 67; O2SAT 98; BMI 40.1
== END 2024-01-05 10:41 | disposition home or self-care (01) ==
PROVIDERS: PCP Internal Medicine; Visit Provider Internal Medicine
DX: M25.562 Pain in left knee (principal); E66.01 Morbid (severe) obesity due to excess calories; Z68.41 Body mass index [BMI] 40.0-44.9, adult; J45.20 Mild intermittent asthma, uncomplicated; K21.9 Gastro-esophageal reflux disease without esophagitis; Z12.11 Encounter for screening for malignant neoplasm of colon
CPT/HCPCS: 99214

== ENCOUNTER 2024-02-16 10:35 | Outpatient (AMB) | payer OTHER, SELFPAY ==
[2024-02-16 10:36] VITALS: BP 130/82; PULSE 82; O2SAT 99; BMI 40.4
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
== END 2024-02-16 11:01 | disposition home or self-care (01) ==
PROVIDERS: PCP Internal Medicine
DX: L03.113 Cellulitis of right upper limb (principal); E66.813 Obesity, class 3; Z68.41 Body mass index [BMI] 40.0-44.9, adult; S83.242D Other tear of medial meniscus, current injury, left knee, subsequent encounter

== ENCOUNTER → 2024-02-16 10:35 | Outpatient (BNVA) | payer OTHER, SELFPAY | PROVIDERS: PCP Internal Medicine | DX: S83.242D Other tear of medial meniscus, current injury, left knee, subsequent encounter (principal); E66.01 Morbid (severe) obesity due to excess calories; L03.113 Cellulitis of right upper limb | CPT/HCPCS: 99212 ==

== ENCOUNTER 2024-02-20 08:08 | Outpatient (REF) | payer OTHER, SELFPAY ==
[2024-02-20 08:46] LABS: Estimated Average Glucose 105 mg/dL; Hemoglobin A1c % 5.3 % (<6.0); Total Hemoglobin (HGBA1C) 3568.7761 umol/L
[2024-02-20 09:19] LABS: Alanine Aminotransferase 13 U/L (0-31); Alkaline Phosphatase 80 U/L (39-117); Anion Gap 13 (12-20); Aspartate Amino Transferase 13 U/L (5-31); Bilirubin Total 0.5 mg/dL (0.0-1.0); Blood Urea Nitrogen 19 mg/dL (9-16); Calcium 9.7 mg/dL (8.4-10.2); Carbon Dioxide 24 mmol/L (22-29); Chloride 108 mmol/L (96-108); Cholesterol 151 mg/dL (<200); Estimated Glomerular Filt Rate 45; Glucose Random 107 mg/dL (60-115); HDL Cholesterol 40 mg/dL (>40); LDL Cholesterol Calculated 103 mg/dL (<100); Magnesium 2.3 mg/dL (1.6-2.6); Potassium 4.7 mmol/L (3.3-5.1); Sodium 140 mmol/L (135-145); Total Protein 7.4 g/dL (6.5-8.0); Triglycerides 44 mg/dL (<150)
[2024-02-20 09:47] LABS: Free T4 (Free Thyroxine) 0.91 ng/dL (0.71-1.85)
[2024-02-20 09:57] LABS: Folate 6.5 ng/mL (> or = 4.0); Vitamin B12 292 pg/mL (200-900)
[2024-02-24 13:37] LABS: Vitamin D 25-OH, D2 4 ng/mL; Vitamin D 25-OH, D3 14 ng/mL; Vitamin D 25-OH, Total 18 ng/mL (30-100)
== END 2024-02-20 08:09 | disposition home or self-care (01) ==
LOC: HO.LAB 08:08
PROVIDERS: PCP Internal Medicine
DX: Z00.00 Encounter for general adult medical examination without abnormal findings (principal); R25.2 Cramp and spasm; Z13.1 Encounter for screening for diabetes mellitus
CPT/HCPCS: 36415; 80053; 80061; 82306; 82607; 82746; 83036; 83735; 84439; 84443

== ENCOUNTER 2024-03-24 08:51 | Outpatient (AMB) | payer OTHER, SELFPAY ==
[2024-03-24 09:17] VITALS: BMI 41.1
--- NOTE | 2024-03-24 09:17 | AM.OFFVISNUR ---
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 No c/o. Pt tolerated injection well. She will schedule her next injection in 12 weeks. Pt verbalizes understanding and agrees with plan. No further questions. Office Procedures Depo Questionnaire If YES to any of the following questions, please consult a provider. Date of last injection: 12/30/23 Date of last gynecology exam: 07/16/23 Menstrual pattern since last injection has been: Not Applicable Irregular bleeding?: No Breast lumps or other breast changes?: No Changes in weight or appetite?: No Depression or changes in mood?: No Abnormal hair growth or loss?: No Skin problems (rash, acne, discoloration)?: No Pain at the injection site?: No Headaches?: No Nervousness?: No Abdominal pain or cramping?: No Dizziness or nausea?: No Fatigue or weakness?: No Decrease in sexual drive?: No Chest pain or shortness of breath?: No Swelling in arms or legs?: No Form completed by?: Lyla García RN Office Meds Depo-Provera 150 mg/mL intramuscular syringe Performing Provider: Lion Elizondo MD Performing Location: [facility] Administered by: Lyla García on 03/24/24 09:19 Dose Route Admin Location Dispensed Lot Number Expiration Date [facility] Director Of Surgery 150 mg IM LGM 1 mL [id number] 05/11/26 14907-722-46 [facility] Assessment & Plan Assessment & Plan (1) Depot contraception: Code(s): Z30.42 - Encounter for surveillance of injectable contraceptive Category: Medical Plan: Pt will schedule next injection in 12 weeks Orders: Orders AMB Medroxyprogesterone Injection Patient Supplied Today Z30.42 - Encounter for surveillance of injectable contraceptive Medications: New Depo-Provera (medroxyprogesterone) 150 mg IM ONCE 1 mL 0RF NS Z30.42 - Encounter for surveillance of injectable contraceptive Patient Instructions: Schedule next Depo provera injection in 12 weeks
== END 2024-03-24 09:19 | disposition home or self-care (01) ==
LOC: HO.HWS 08:51
PROVIDERS: PCP Internal Medicine; Visit Provider Obstetrics & Gynecology
DX: Z30.42 Encounter for surveillance of injectable contraceptive (principal)

== ENCOUNTER → 2024-03-24 08:51 | Outpatient (BNVA) | payer OTHER, SELFPAY | PROVIDERS: PCP Internal Medicine; Visit Provider Obstetrics & Gynecology | DX: Z30.42 Encounter for surveillance of injectable contraceptive (principal) | CPT/HCPCS: 96372; 99211; J1050 ==

== ENCOUNTER 2024-04-06 08:51 | Outpatient (AMB) | payer OTHER, SELFPAY ==
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
== END 2024-04-06 09:18 | disposition home or self-care (01) ==
PROVIDERS: PCP Internal Medicine; Visit Provider Psychiatry & Neurology Neurology
DX: R90.89 Other abnormal findings on diagnostic imaging of central nervous system (principal); G43.109 Migraine with aura, not intractable, without status migrainosus; G25.81 Restless legs syndrome
CPT/HCPCS: 99214; G2211

== ENCOUNTER → 2024-04-06 08:51 | Outpatient (BNVA) | payer OTHER, SELFPAY | PROVIDERS: PCP Internal Medicine; Visit Provider Psychiatry & Neurology Neurology | DX: G43.109 Migraine with aura, not intractable, without status migrainosus (principal); G25.81 Restless legs syndrome; R90.89 Other abnormal findings on diagnostic imaging of central nervous system | CPT/HCPCS: 99212 ==

== ENCOUNTER 2024-04-19 09:29 | Outpatient (AMB) | payer OTHER, SELFPAY ==
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
[2024-04-19 09:32] VITALS: BP 124/60; PULSE 85; O2SAT 100; BMI 41.7
== END 2024-04-19 10:01 | disposition home or self-care (01) ==
PROVIDERS: PCP Internal Medicine
DX: M25.512 Pain in left shoulder (principal); M79.642 Pain in left hand; M54.50 Low back pain, unspecified; M25.562 Pain in left knee

== ENCOUNTER → 2024-04-19 09:29 | Outpatient (BNVA) | payer OTHER, SELFPAY | PROVIDERS: PCP Internal Medicine | DX: M25.512 Pain in left shoulder (principal); M79.642 Pain in left hand; M54.50 Low back pain, unspecified; M25.562 Pain in left knee | CPT/HCPCS: 99212 ==

== ENCOUNTER 2024-05-26 14:55 | Outpatient (AMB) | payer OTHER, SELFPAY ==
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
[2024-05-26 15:07] VITALS: BMI 41.7
== END 2024-05-26 15:32 | disposition home or self-care (01) ==
PROVIDERS: PCP Internal Medicine; Visit Provider Physician Assistant
DX: S80.02XA Contusion of left knee, initial encounter (principal); S83.242D Other tear of medial meniscus, current injury, left knee, subsequent encounter; S83.282D Other tear of lateral meniscus, current injury, left knee, subsequent encounter
CPT/HCPCS: 20610; 99213

== ENCOUNTER → 2024-05-26 14:55 | Outpatient (BNVA) | payer OTHER, SELFPAY | PROVIDERS: PCP Internal Medicine; Visit Provider Physician Assistant | DX: S80.02XA Contusion of left knee, initial encounter (principal); M25.562 Pain in left knee; V43.62XA Car passenger injured in collision with other type car in traffic accident, initial encounter; Y93.9 Activity, unspecified; Y92.9 Unspecified place or not applicable; Y99.9 Unspecified external cause status; Z98.890 Other specified postprocedural states | CPT/HCPCS: 20610; 99212; J1010; J2003 ==

== ENCOUNTER → 2024-06-16 09:19 | Outpatient (BNVA) | payer OTHER, SELFPAY | PROVIDERS: PCP Internal Medicine; Visit Provider Obstetrics & Gynecology | DX: Z30.42 Encounter for surveillance of injectable contraceptive (principal) | CPT/HCPCS: 96372; 99211; J1050 ==

== ENCOUNTER 2024-07-19 08:53 | Outpatient (AMB) | payer OTHER, SELFPAY ==
--- NOTE | 2024-07-19 08:57 | MHC.PC.OV ---
Vital Signs 07/19/24 08:58 Height 5 ft 2 in Weight 229 lb 8 oz BMI 42.0 BP 130/74 Blood Pressure Location Lt brachial Position Sitting Pulse 83 Pulse Source Pulse Oximeter Temp 97.7 F Temp Source Temporal Artery Scan Pulse Oximetry (%) 96 Oxygen Delivery Method Room Air Intake Visit Reasons: pe Intake Note: Patient is here today for a physical. Computer Operations Technician Required: No Securities Teller: Not Required per policy Accompanied by: Self / Same As Patient Allergies bacitracin [BACITRACIN] Allergy (Mild, Verified 07/19/24 09:29) RASH Medication List - Last Reconciled 07/19/24 by Antolin Pedraza PA-C acetaminophen (Tylenol Extra Strength) 500 mg PO Q6H PRN albuterol sulfate 90 mcg/actuation 2 puffs PO Q4-6H PRN amitriptyline 25 mg PO BEDTIME 90 days ascorbate calcium (vitamin C) 500 mg PO DAILY cholecalciferol (vitamin D3) 25 mcg PO DAILY clonidine HCl 0.1 mg PO TID PRN 90 days cyanocobalamin (vitamin B-12) 1,000 mcg PO DAILY diclofenac sodium 1% (Voltaren Arthritis Pain) 4 grams topical QID folic acid 1 mg PO DAILY lamotrigine 50 mg (2 x 25 mg) PO BID 90 days magnesium oxide 400 mg PO BEDTIME medroxyprogesterone (Depo-Provera) 150 mg IM [id number] omeprazole 20 mg PO DAILY riboflavin (vitamin B2) 400 mg PO QAM ropinirole 0.25 mg PO BEDTIME sennosides-docusate sodium 8.6-50 mg (Senna-S) 2 tab-caps (2 x 8.6-50 mg) PO BEDTIME 30 days sumatriptan succinate (Imitrex) take 1 tab at onset of headache; if no relief may repeat 1 tab after at least 2 hrs; max = 4 tabs/24 hr PO topiramate 50 mg PO BEDTIME Tobacco use date assessed: 07/19/24 Dental Screening Dental Screen Date: 07/19/24 Did you have a dental visit in the last 12 months?: No Did you have a dental problem in the last 6 months where you did not have access to dental care?: No Was dental information given to patient?: No HPI pe HPI Details Patient is a 48-year-old female here today for a routine annual physical. Patient has a past medical history significant for obesity, anxiety, bipolar disorder fibromyalgia, migraines. Concern--> she is concerned about her weight as she has not been able to lose much weight. 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: Followed by [facility] Mammo: HAs upcoming appointment for mammogram Colon cancer screening: Willing to do Cologuard [facility] Medical History (Updated 07/20/24 @ 07:42 by Antolin Pedraza PA-C) Restless legs syndrome (RLS) Migraine Hypersomnia Snoring Abnormal CT of brain Chronic migraine with aura PTSD (post-traumatic stress disorder) Bipolar disorder HPV (human papilloma virus) infection COVID-19 Restless leg syndrome Fibromyalgia Vitamin D deficiency Obesity Asthma Surgical History History of dilatation and curettage History of toe surgery Family History Father Diabetes CVD (cardiovascular disease) Cancer Hypertension Slow to wake up after anesthesia Mother Diabetes CVD (cardiovascular disease) Cancer Maternal Grandmother Lung cancer Maternal Grandfather Gastric cancer Paternal Grandmother Ovarian cancer Paternal Grandfather Esophageal cancer Maternal Aunt Breast cancer Maternal Uncle Colon cancer Sister Mental health disorder Bipolar 1 disorder Slow to wake up after anesthesia Other Arthritis Social History Household Members: Children Housing: House 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 other at home: Yes (children) Do you presently have visiting nurse or other home services: No Alcohol intake: never Patient Tobacco Use Status: Former Tobacco user Tobacco use type: Cigarette Years Smoked: 2004 stopped e-Cigarette/Vaping Use: Never Used Second Hand Smoke Exposure: Yes service: No Current occupational status: employed 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 1. Little interest or pleasure in doing things: several days 2. Feeling down, depressed, or hopeless: several days 3. Trouble falling or staying asleep, or sleeping too much: nearly every day 4. Feeling tired or having little energy: more than half the days 5. Poor appetite or overeating: several days 6. Feeling bad about yourself - or that you are a failure or have let yourself or your family down: more than half the days 7. Trouble concentrating on things, such as reading the newspaper or watching television: more than half the days 8. Moving or speaking so slowly that other people could have noticed. Or the opposite - being so fidgety or restless that you have been moving around a lot more than usual: not at all 9. Thoughts that you would be better off or of hurting yourself in some way: not at all Total score: 12 Depression Screening Interpretation: Positive Depression Screening Follow-up: Existing condition Depression Screening Done: Yes 33943 - PHQ-9 Billing: Yes Source: Developed by Drs. Christian Raymond, Jennifer Liang, Pete Martinez and colleagues, with an educational hcet from [employer]. Thrive Questionnaire Date Thrive assessed: 07/19/24 I am a: Patient What is your living situation today?: I have a steady place to live Within the past 12 months, did the food you bought not last and you didn't have the money to get more?: Often true Within the past 12 months, did you worry whether your food would run out before you got money to buy more?: Often true Do you have trouble paying for medicines?: No Do you have trouble getting transportation to medical appointments?: No Do you have trouble paying your heating and electricity bill?: Yes Do you have trouble taking care of your child, family member or friend?: No Do you have trouble with day-to-day activities such as bathing, preparing meals, shopping, managing finances, etc.?: No Are you currently unemployed and looking for a job?: No Are you interested in more education?: No Please select the resources that you would like help with: Food Currently or been in a relationship where the following occur: I choose not to answer THRIVE Score: 3 AUDIT C Alcohol Use Questionnaire (AUDIT-C) 1. How often do you have a drink containing alcohol?: Monthly or less 2. How many drinks containing alcohol do you have on a typical day when you are drinking?: 1 or 2 3. How often do you have six or more drinks on one occasion?: Never Total Score: 1 SAMANTHA-7 AMB Questionnaire SAMANTHA-7 Date SAMANTHA - 7 assessed: 07/19/24 Feeling nervous, anxious, or on edge: 2 = More than half the days Not being able to stop or control worryin = More than half the days Worrying too much about different things: 2 = More than half the days Trouble relaxin = More than half the days Being so restless that it is hard to sit still: 2 = More than half the days Becoming easily annoyed or irritable: 2 = More than half the days Feeling afraid as if something awful might happen: 2 = More than half the days Total SAMANTHA-7 score (0-4 normal; 5-9 mild; 10-14 moderate; 15-21 severe): 14 Source: Developed by Drs. Christian Raymond, Jennifer Liang, Pete Martinez and colleagues, with an educational chet from [employer]. SAMANTHA-7 Assessment Billing SAMANTHA-7 Assessment Tool: SAMANTHA-7 Assessment 90142 Review of Systems Const Denies body aches, Denies chills, Denies excessive sweating, Denies fatigue, Denies fever(s) and Denies headache(s) Eyes Denies blurry vision ENT Denies dysphagia, Denies vertigo, Denies dizziness, Denies headache(s), Denies hearing loss and Denies tinnitus Card Denies chest pain, Denies chest pain with activity, Denies syncope, Denies irregular heart rhythm and Denies dyspnea Resp Denies chest congestion, Denies cough, Denies hemoptysis, Denies dyspnea and Denies wheezing GI Denies abdominal pain, Denies melena, Denies hematochezia, Denies coffee ground emesis, Denies dysphagia, Denies diarrhea, Denies nausea and Denies vomiting Denies urinary frequency, Denies dysuria, Denies urinary hesitancy and Denies urinary urgency Musc Denies arthralgias, Denies limited range of motion, Denies muscle cramps and Denies muscle weakness Skin/Breast Denies rash and Denies skin ulcer Neuro Denies Abnormal speech present, Denies confusion, Denies vertigo, Denies dizziness, Denies syncope, Denies headache(s), Denies memory loss and Denies seizure-like activity Psych Denies anxiety, Denies confusion, Denies depression, Denies memory loss, Denies panic attacks and Denies paranoia Endo Denies excessive sweating, Denies fatigue, Denies flushing, Denies polydipsia and Denies polyuria Aller/Immun Denies wheezing Physical exam (Primary Care) Vital Signs: Last Vital Signs Temp 97.7 F 07/19/24 08:58 Pulse 83 07/19/24 08:58 BP 130/74 07/19/24 08:58 Pulse Ox 96 07/19/24 08:58 Oxygen Delivery Method Room Air 07/19/24 08:58 BMI result Body Mass Index 42.0 BMI Assessment/Plan discussion: High BMI High, discussed plan: lifestyle, weight reduction, dietary and physical activity Tobacco/Smoking Status: Tobacco use Status Tobacco use date assessed 07/19/24 07/19/24 09:02 Patient Tobacco Use Status Former Tobacco user 07/19/24 09:02 Tobacco use type Cigarette 07/19/24 09:02 e-Cigarette/Vaping Use Never Used 07/19/24 09:02 PHQ-9: PHQ-9 Score PHQ-9: Total score 12 07/19/24 09:32 Depression Screening Interpretation: Positive Depression Screening Follow-up: Existing condition Thrive Assessment: Date of Thrive Assessment Date Thrive assessed 07/19/24 07/19/24 09:02 Currently or been in a relationship where the following occur: I choose not to answer Const General: cooperative, comfortable, no acute distress, alert and awake; No confusion Orientation/consciousness: oriented to person, oriented to place, patient oriented x3 and No confusion HENMT Head: Yes normocephalic Ears: external ears normal and TM's normal bilaterally Face and sinus: No sinus tenderness Mouth: Normal oral and palatal mucosa present and tongue normal Teeth and gingiva: dentition normal and gingiva normal Throat: Yes posterior oropharynx normal, Yes tonsils normal and Yes uvula midline Eyes Conjunctivae: conjunctivae normal Sclerae: sclerae normal Pupils: Equal, round and reactive pupils present EOM: EOMs intact bilaterally Direct Ophthalmoscopy: No no photophobia Neck Neck: Yes no lymphadenopathy, No tender and Yes no JVD Thyroid: Thyroid normal Carotids: no bruits Chest Chest palpation & inspection: no tenderness Resp Effort & Inspection: normal respiratory effort, no audible wheezes, not labored and no stridor Auscultation: no crackles, no rales, no rhonchi and no wheezes Cardio Jugular venous distension: no JVD Rate: regular rate, not bradycardic and not tachycardic Rhythm: regular rhythm Bruits: no carotid bruits Peripheral pulses: Peripheral pulses 2+ throughout GI Inspection: Yes normal to inspection, No abdominal wall ecchymosis and No visible herniation Palpation (GI): Soft to palpation, nontender, no guarding, not rigid and No hepatosplenomegaly present Auscultation: normoactive bowel sounds General: Yes no CVA tenderness Back/Spine/Pelvis Back: no CVA tenderness and No back tenderness Cervical Spine: cervical ROM normal Thoracic/Lumbar Spine: thoracic and lumbar spine normal to inspection, straight leg raise negative bilaterally, No thoraco-lumbar ROM limited and No lumbar spinal tenderness Skin Lesions: no lesions Rashes: no rashes Wounds: no wounds Neuro General: oriented to person, oriented to place, patient oriented x3, CN's II-XI intact bilaterally and No confusion Cranial nerves: Yes Equal, round and reactive pupils present and Yes Normal accommodation reflex present Cognition (Neuro): normal cognition Speech: No Abnormal speech present Gait exam (Neuro): Normal gait present Motor exam (neuro): 5/5 motor strength present throughout Extrem Right upper extremity: full ROM; no cyanosis Left upper extremity: full ROM; no cyanosis Right lower extremity: no edema Left lower extremity: no edema Psych Appearance: grossly normal Mental Status: mental status grossly normal Affect: normal affect Attitude: cooperative Thought process: Normal thought process present Coding Level of Care Code Est Pt Prev Care 40-64y(64279) Diagnoses Annual physical exam Z00.00 Class 3 obesity E66.813 Screening for diabetes mellitus (DM) Z13.1 Generalized anxiety disorder F41.1 Bipolar affective disorder, currently depressed, mild F31.31 Active/Remission status: currently active Current bipolar episode type: depressed Current episode severity: mild Colon cancer screening Z12.11 Additional Codes PHQ-9 - 30779 - PHQ-9 Billing: Yes ([id number]) SAMANTHA-7 Assessment Billing - SAMANTHA-7 Assessment Tool: SAMANTHA-7 Assessment 59149 ([id number]) Assessment & Plan Assessment & Plan (1) Annual physical exam: Code(s): Z00.00 - Encounter for general adult medical examination without abnormal findings Category: Medical Plan: As per HPI (2) Class 3 obesity: Code(s): E66.813 - Obesity, class 3 Category: Medical Plan: Patient does understand her BMI is over 40 will try to work on being more physically active and adapting to better eating habits to reduce her weight. 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 (3) Screening for diabetes mellitus (DM): Code(s): Z13.1 - Encounter for screening for diabetes mellitus Category: Medical Plan: As per HPI (4) Generalized anxiety disorder: Comment: [facility] every 2 weeks Code(s): F41.1 - Generalized anxiety disorder Category: Medical Plan: Patient's SAMANTHA-7 score positive for anxiety which has been existing condition for her. She has been in mental health therapy in the past in his taking mental health medications (5) Bipolar disorder: Code(s): F31.9 - Bipolar disorder, unspecified Category: Medical Qualifiers: Active/Remission status: currently active Current bipolar episode type: depressed Current episode severity: mild Qualified Code(s): F31.31 - Bipolar disorder, current episode depressed, mild Plan: Patient continues on mood stabilization with lamotrigine. She is speaking with a mental health therapist. (6) Colon cancer screening: Code(s): Z12.11 - Encounter for screening for malignant neoplasm of colon Category: Medical Plan: Willing to do Cologuard Orders: Referrals Cologuard Test Z12.11 - Encounter for screening for malignant neoplasm of colon Medications: Refilled lamotrigine 50 mg (2 x 25 mg) PO BID 90 days 360 tabs 2RF
[2024-07-19 08:58] VITALS: BP 130/74; PULSE 83; TEMP 36.5; O2SAT 96; BMI 42.0
== END 2024-07-19 09:59 | disposition home or self-care (01) ==
PROVIDERS: PCP Internal Medicine; Visit Provider Physician Assistant
DX: Z00.00 Encounter for general adult medical examination without abnormal findings (principal); E66.813 Obesity, class 3; F31.31 Bipolar disorder, current episode depressed, mild; Z68.41 Body mass index [BMI] 40.0-44.9, adult; Z13.1 Encounter for screening for diabetes mellitus; F41.1 Generalized anxiety disorder; Z12.11 Encounter for screening for malignant neoplasm of colon

== ENCOUNTER → 2024-07-19 08:53 | Outpatient (BNVA) | payer OTHER, SELFPAY | PROVIDERS: PCP Internal Medicine; Visit Provider Physician Assistant | DX: Z00.00 Encounter for general adult medical examination without abnormal findings (principal); E66.813 Obesity, class 3; Z68.41 Body mass index [BMI] 40.0-44.9, adult; F41.1 Generalized anxiety disorder; F31.31 Bipolar disorder, current episode depressed, mild; Z71.3 Dietary counseling and surveillance | CPT/HCPCS: 96127; 99396 ==

== ENCOUNTER 2024-09-13 09:01 | Outpatient (AMB) | payer OTHER, SELFPAY ==
[2024-09-13 09:14] VITALS: BMI 43.2
--- NOTE | 2024-09-13 09:14 | AM.OFFVISNUR ---
Vital Signs 09/13/24 09:14 Height 5 ft 2 in Weight 236 lb BMI 43.2 Intake Visit Reasons: Depo Shot Allergies bacitracin [BACITRACIN] Allergy (Mild, Verified 07/19/24 09:29) RASH Nursing Note Denita is here today dfor her scheduled Depo-Provera inj. No c/o follow up on 10/13/24 for AG. Office Procedures Depo Questionnaire If YES to any of the following questions, please consult a provider. Date of last injection: 06/16/24 Date of last gynecology exam: 09/23/23 Menstrual pattern since last injection has been: Not Applicable Irregular bleeding?: No Breast lumps or other breast changes?: No Changes in weight or appetite?: No Depression or changes in mood?: No Abnormal hair growth or loss?: No Skin problems (rash, acne, discoloration)?: No Pain at the injection site?: No Headaches?: No Nervousness?: No Abdominal pain or cramping?: No Dizziness or nausea?: No Fatigue or weakness?: No Decrease in sexual drive?: No Chest pain or shortness of breath?: No Swelling in arms or legs?: No Form completed by?: Rah Bartlett LPN Office Meds Depo-Provera 150 mg/mL intramuscular syringe Performing Provider: Lion Elizondo MD Performing Location: [facility] [place] [facility] Administered by: Khushbu Bartlett LPN on 09/13/24 09:15 Dose Route Admin Location Dispensed Lot Number Expiration Date [facility] [place] [employer] Clerk 150 mg IM LGM 1 mL [id number] 09/08/26 27292-237-61 [facility] Assessment & Plan Assessment & Plan Orders: Orders AMB Medroxyprogesterone Injection Patient Supplied Today Z30.42 - Encounter for surveillance of injectable contraceptive Medications: New Depo-Provera (medroxyprogesterone) 150 mg IM ONCE 1 mL 0RF NS Z30.42 - Encounter for surveillance of injectable contraceptive Coding Level of Care Code Established Pt Est Pt Level 1 (63342) Patient Type Established History Problem Focused Exam Problem Focused Medical Decision Making Straight Forward Time Spent (min) 20
== END 2024-09-13 09:11 | disposition home or self-care (01) ==
LOC: HO.HWS 09:01
PROVIDERS: PCP Internal Medicine
DX: Z30.42 Encounter for surveillance of injectable contraceptive (principal)

== ENCOUNTER → 2024-09-13 09:01 | Outpatient (BNVA) | payer OTHER, SELFPAY | PROVIDERS: PCP Internal Medicine | DX: Z30.42 Encounter for surveillance of injectable contraceptive (principal) | CPT/HCPCS: 96372; 99211; J1050 ==

== ENCOUNTER → 2024-09-22 09:00 | Outpatient (BNV) | payer OTHER, SELFPAY | PROVIDERS: PCP Internal Medicine; Visit Provider Internal Medicine | DX: Z12.31 Encounter for screening mammogram for malignant neoplasm of breast (principal) | CPT/HCPCS: 77063; 77067 ==

== ENCOUNTER 2024-09-22 09:08 | Outpatient (REF) | payer OTHER, SELFPAY | END 2024-09-22 09:09 | disposition home or self-care (01) | LOC: HO.MAMMO 09:08 | PROVIDERS: PCP Internal Medicine; Visit Provider Internal Medicine | DX: Z12.31 Encounter for screening mammogram for malignant neoplasm of breast (principal) | CPT/HCPCS: 77063; 77067 ==

== ENCOUNTER 2024-09-29 08:43 | Outpatient (AMB) | payer OTHER, SELFPAY ==
[2024-09-29 08:45] VITALS: BP 120/82; PULSE 92; O2SAT 99; BMI 42.9
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
== END 2024-09-29 09:32 | disposition home or self-care (01) ==
LOC: HO.HSMS 08:44
PROVIDERS: PCP Internal Medicine; Visit Provider Physician Assistant Medical
DX: G43.109 Migraine with aura, not intractable, without status migrainosus (principal); G25.81 Restless legs syndrome
CPT/HCPCS: 99214; G2211

== ENCOUNTER → 2024-09-29 08:43 | Outpatient (BNVA) | payer OTHER, SELFPAY | PROVIDERS: PCP Internal Medicine; Visit Provider Physician Assistant Medical | DX: G43.109 Migraine with aura, not intractable, without status migrainosus (principal); G25.81 Restless legs syndrome | CPT/HCPCS: 99212 ==

== ENCOUNTER 2024-12-01 11:10 | Outpatient (AMB) | payer OTHER, SELFPAY ==
--- NOTE | 2024-12-01 13:32 | AM.OFFVISNUR ---
Intake Visit Reasons: depo Allergies bacitracin (BACITRACIN) Allergy (Mild, Verified 09/29/24 08:53) RASH Nursing Note Patient here at scheduled apt time for Depo provera Injection. Had no complaints. Patient to schedule next injection in twelve weeks. Office Procedures Depo Questionnaire If YES to any of the following questions, please consult a provider. Date of last injection: 09/13/24 Date of last gynecology exam: 06/16/24 Menstrual pattern since last injection has been: Not Applicable Irregular bleeding?: No Breast lumps or other breast changes?: No Changes in weight or appetite?: No Depression or changes in mood?: No Abnormal hair growth or loss?: No Skin problems (rash, acne, discoloration)?: No Pain at the injection site?: No Headaches?: No Nervousness?: No Abdominal pain or cramping?: No Dizziness or nausea?: No Fatigue or weakness?: No Decrease in sexual drive?: No Chest pain or shortness of breath?: No Swelling in arms or legs?: No Any other problems or concerns?: no concerns Form completed by?: Brittanie Parmar LPN Office Meds Depo-Provera 150 mg/mL intramuscular syringe Performing Provider: Lion Elizondo MD Performing Location: [facility] Administered by: Lela Parmar LPN on 12/01/24 13:36 Dose Route Admin Location Dispensed Lot Number Expiration Date [facility] [employer] 150 mg IM RGM 1 mL [id number] 04/10/27 [id number] [facility] Total Dispensed Waste 1 mL 0 % Assessment & Plan Assessment & Plan Orders: Orders AMB Medroxyprogesterone Injection Patient Supplied Today Z30.9 - Encounter for contraceptive management, unspecified Coding Level of Care Code Established Pt Est Pt Level 1 (90969) Patient Type Established History Problem Focused Exam Problem Focused Medical Decision Making Straight Forward Time Spent (min) 20
== END 2024-12-01 11:36 | disposition home or self-care (01) ==
LOC: HO.HWS 11:10
PROVIDERS: PCP Internal Medicine; Visit Provider Obstetrics & Gynecology
DX: Z30.9 Encounter for contraceptive management, unspecified (principal)

== ENCOUNTER → 2024-12-01 11:10 | Outpatient (BNVA) | payer OTHER, SELFPAY | PROVIDERS: PCP Internal Medicine; Visit Provider Obstetrics & Gynecology | DX: Z30.9 Encounter for contraceptive management, unspecified (principal) | CPT/HCPCS: 96372; 99211; J1050 ==

== ENCOUNTER 2024-12-09 08:01 | Outpatient (AMB) | payer OTHER, SELFPAY ==
--- NOTE | 2024-12-09 08:03 | A.OFFVIS_ITS ---
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 No complaints. Last Pap/HPV was negative in 08/01, preceded by negative Pap/HPV positive in 07/03 Last Mammogram was BI-RADS 1 in 10/03 No previous screening colonoscopy PFSH Medical History Restless legs syndrome (RLS) Migraine Hypersomnia Snoring Abnormal CT of brain Chronic migraine with aura PTSD (post-traumatic stress disorder) Bipolar disorder HPV (human papilloma virus) infection COVID-19 Restless leg syndrome Fibromyalgia Vitamin D deficiency Obesity Asthma Surgical History History of dilatation and curettage History of toe surgery Family History Father Diabetes CVD (cardiovascular disease) Cancer Hypertension Slow to wake up after anesthesia Mother Diabetes CVD (cardiovascular disease) Cancer Maternal Grandmother Lung cancer Maternal Grandfather Gastric cancer Paternal Grandmother Ovarian cancer Paternal Grandfather Esophageal cancer Maternal Aunt Breast cancer Maternal Uncle Colon cancer Sister Mental health disorder Bipolar 1 disorder Slow to wake up after anesthesia Other Arthritis Social History Household Members: Children Housing: House Are you a primary manager managed care to a significant other at home: Yes (children) Do you presently have visiting nurse or other home services: No Alcohol intake: never Patient Tobacco Use Status: Former Tobacco user Tobacco use type: Cigarette Years Smoked: 2004 stopped e-Cigarette/Vaping Use: Never Used Second Hand Smoke Exposure: Yes service: No Current occupational status: employed 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 Sexual orientation: Straight/Heterosexual Gender identity: Female Cognitive needs: No Hearing needs: No Vision needs: Yes (Glasses) Female Reproductive History Menstrual Age of Menarche: 13 Total pregnancies: 2 Full term: 2 Number of Living Children: 2 Date of last pap smear: 07/10/22 Date of Mammogram: 09/22/24 Review of Systems Const All systems reviewed & are unremarkable except as noted in HPI and below Card Reports as per HPI Resp Reports as per HPI GI Reports as per HPI and Reports no additional complaints Reports as per HPI Physical Exam Vital Signs: BMI result Body Mass Index 41.7 Const General: cooperative, healthy appearing and comfortable Chest Chest palpation & inspection: normal inspection of the chest and normal palpation of entire chest wall Breast/axilla inspection: normal inspection of the breasts and normal inspection of the axillae Breast/axilla palpation: normal palpation of the breasts, normal palpation of the axillae and no axillary lymphadenopathy Resp Effort & Inspection: normal respiratory effort Auscultation: clear to auscultation bilaterally Percussion: percussion normal Cardio Palpation: normal PMI Rate: regular rate Rhythm: regular rhythm Heart sounds: no murmurs and no rubs Peripheral pulses: Peripheral pulses 2+ throughout GI Inspection: Yes normal to inspection Palpation (GI): Soft to palpation, nontender, no guarding, not rigid and No hepatosplenomegaly present Percussion: Yes normal to percussion Auscultation: normal bowel sounds Rectal Exam - Female: deferred General: Yes bladder normal to palpation External Female Exam: No lesion Speculum Exam - Vagina: normal appearance of the vagina, normal palpation, normal vaginal discharge and not erythematous Speculum Exam - Cervix: normal appearance of the cervix and normal palpation Bimanual exam- vagina & uterus: normal bimanual exam, normal palpation, uterine size normal, bladder normal to palpation, consistency normal and normal palpation Bimanual Exam- Adnexa, other: normal adnexae, no masses and no tenderness Assessment & Plan Assessment & Plan (1) Well woman exam: Comment: Negative Pap HPV positive 2021 Negative co testing 2022 Code(s): Z01.419 - Encounter for gynecological examination (general) (routine) without abnormal findings Category: Medical Plan: Co testing done. Counseled the patient about the recommended dietary allowance of 1200 mg of Calcium & 600 IU of vitamin D. Instructions given the patient to schedule next screening Mammogram in 10/04. The patient was referred to GI for screening colonoscopy . The patient was instructed to perform monthly self-breast exams and schedule annual exam in a year. All questions answered and the patient verbalized understanding. Orders: Referrals Gastroenterology Referral Z12.11 - Encounter for screening for malignant neoplasm of colon Coding Level of Care Code Est Pt Prev Care 40-64y(08262) Diagnoses Well woman exam Z01.419
[2024-12-09 08:06] VITALS: BP 122/74; BMI 41.7
== END 2024-12-09 08:33 | disposition home or self-care (01) ==
LOC: HO.HWS 08:01
PROVIDERS: PCP Internal Medicine; Visit Provider Obstetrics & Gynecology
DX: Z01.419 Encounter for gynecological examination (general) (routine) without abnormal findings (principal)
CPT/HCPCS: 99396; 99459

== ENCOUNTER 2024-12-09 08:01 | Outpatient (REF) | payer OTHER, SELFPAY | END 2024-12-09 08:02 | disposition home or self-care (01) | LOC: HO.LNP 08:01 | PROVIDERS: PCP Internal Medicine; Visit Provider Obstetrics & Gynecology | DX: Z01.419 Encounter for gynecological examination (general) (routine) without abnormal findings (principal); Z12.11 Encounter for screening for malignant neoplasm of colon | CPT/HCPCS: 87626; 88175; 99396 ==

== ENCOUNTER 2025-01-19 09:43 | Outpatient (AMB) | payer OTHER, SELFPAY ==
[2025-01-19 10:13] VITALS: BP 130/74; PULSE 92; TEMP 36.5; O2SAT 99; BMI 43.4
--- NOTE | 2025-01-19 10:13 | A.OFFPC_ITS ---
Vital Signs 01/19/25 10:13 Height 5 ft 2 in Weight 237 lb 2 oz BMI 43.4 BP 130/74 Blood Pressure Location Lt brachial Position Sitting Pulse 92 Pulse Source Pulse Oximeter Temp 97.7 F Temp Source Temporal Artery Scan Pulse Oximetry (%) 99 Oxygen Delivery Method Room Air Intake Visit Reasons: f/u labs Allergies bacitracin (BACITRACIN) Allergy (Mild, Verified 01/19/25 10:13) RASH Medication List - Last Reconciled 01/19/25 by Connie Young MD acetaminophen (Tylenol Extra Strength) 500 mg PO Q6H PRN albuterol sulfate 90 mcg/actuation 2 puffs PO Q4-6H PRN ascorbate calcium (vitamin C) 500 mg PO DAILY cholecalciferol (vitamin D3) 25 mcg PO DAILY clonidine HCl 0.1 mg PO TID PRN 90 days cyanocobalamin (vitamin B-12) 1,000 mcg PO DAILY diclofenac sodium 1% (Voltaren Arthritis Pain) 4 grams topical QID folic acid 1 mg PO DAILY MDD 1mg lamotrigine 50 mg (2 x 25 mg) PO BID 90 days magnesium oxide 400 mg PO BEDTIME omeprazole 20 mg PO DAILY riboflavin (vitamin B2) 400 mg PO QAM rizatriptan 10 mg PO Q2-4H 30 days MDD 20mg ropinirole 0.25 mg PO BEDTIME sennosides-docusate sodium 8.6-50 mg (Senna-S) 2 tab-caps (2 x 8.6-50 mg) PO BEDTIME 30 days topiramate 100 mg PO BEDTIME MDD 100mg Tobacco use date assessed: 01/19/25 Dental Screening Dental Screen Date: 07/19/24 Did you have a dental visit in the last 12 months?: Yes Did you have a dental problem in the last 6 months where you did not have access to dental care?: No Was dental information given to patient?: Patient has dentist [facility] Medical History (Updated 01/19/25 @ 10:38 by Connie Young MD) COVID-19 COVID-19 virus infection Restless legs syndrome (RLS) Migraine Hypersomnia Snoring Abnormal CT of brain Chronic migraine with aura PTSD (post-traumatic stress disorder) Bipolar disorder HPV (human papilloma virus) infection Restless leg syndrome Fibromyalgia Vitamin D deficiency Obesity Asthma Surgical History History of dilatation and curettage History of toe surgery Family History Father Diabetes CVD (cardiovascular disease) Cancer Hypertension Slow to wake up after anesthesia Mother Diabetes CVD (cardiovascular disease) Cancer Maternal Grandmother Lung cancer Maternal Grandfather Gastric cancer Paternal Grandmother Ovarian cancer Paternal Grandfather Esophageal cancer Maternal Aunt Breast cancer Maternal Uncle Colon cancer Sister Mental health disorder Bipolar 1 disorder Slow to wake up after anesthesia Other Arthritis Social History Household Members: Children Housing: House Are you a primary managed care liaison to a significant other at home: Yes (children) Do you presently have visiting nurse or other home services: No Alcohol intake: never Patient Tobacco Use Status: Former Tobacco user Tobacco use type: Cigarette Years Smoked: 2004 stopped e-Cigarette/Vaping Use: Never Used Second Hand Smoke Exposure: Yes service: No Current occupational status: employed 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 1. Little interest or pleasure in doing things: several days 2. Feeling down, depressed, or hopeless: several days 3. Trouble falling or staying asleep, or sleeping too much: nearly every day 4. Feeling tired or having little energy: more than half the days 5. Poor appetite or overeating: several days 6. Feeling bad about yourself - or that you are a failure or have let yourself or your family down: more than half the days 7. Trouble concentrating on things, such as reading the newspaper or watching television: more than half the days 8. Moving or speaking so slowly that other people could have noticed. Or the opposite - being so fidgety or restless that you have been moving around a lot more than usual: not at all 9. Thoughts that you would be better off or of hurting yourself in some way: not at all Total score: 12 Depression Screening Interpretation: Positive Depression Screening Follow-up: Existing condition Depression Screening Done: Yes Source: Developed by Drs. Christian Raymond, Jennifer Liang, Pete Martinez and colleagues, with an educational chet from [employer]. Thrive Questionnaire Date Thrive assessed: 07/19/24 I am a: Patient What is your living situation today?: I have a steady place to live Within the past 12 months, did the food you bought not last and you didn't have the money to get more?: Often true Within the past 12 months, did you worry whether your food would run out before you got money to buy more?: Often true Do you have trouble paying for medicines?: No Do you have trouble getting transportation to medical appointments?: No Do you have trouble paying your heating and electricity bill?: Yes Do you have trouble taking care of your child, family member or friend?: No Do you have trouble with day-to-day activities such as bathing, preparing meals, shopping, managing finances, etc.?: No Are you currently unemployed and looking for a job?: No Are you interested in more education?: No Please select the resources that you would like help with: Food Currently or been in a relationship where the following occur: I choose not to answer THRIVE Score: 3 AUDIT C Alcohol Use Questionnaire (AUDIT-C) 1. How often do you have a drink containing alcohol?: Monthly or less 2. How many drinks containing alcohol do you have on a typical day when you are drinking?: 1 or 2 3. How often do you have six or more drinks on one occasion?: Never Total Score: 1 SAMANTHA-7 AMB Questionnaire SAMANTHA-7 Date SAMANTHA - 7 assessed: 07/19/24 Feeling nervous, anxious, or on edge: 2 = More than half the days Not being able to stop or control worryin = More than half the days Worrying too much about different things: 2 = More than half the days Trouble relaxin = More than half the days Being so restless that it is hard to sit still: 2 = More than half the days Becoming easily annoyed or irritable: 2 = More than half the days Feeling afraid as if something awful might happen: 2 = More than half the days Total SAMANTHA-7 score (0-4 normal; 5-9 mild; 10-14 moderate; 15-21 severe): 14 Source: Developed by Drs. Christian Raymond, Jennifer Liang, Pete Martinez and colleagues, with an educational chet from [employer]. Physical exam (Primary Care) Vital Signs: Last Vital Signs Temp 97.7 F 01/19/25 10:13 Pulse 92 01/19/25 10:13 BP 130/74 01/19/25 10:13 Pulse Ox 99 01/19/25 10:13 Oxygen Delivery Method Room Air 01/19/25 10:13 BMI result Body Mass Index 43.4 Tobacco/Smoking Status: Tobacco use Status Tobacco use date assessed 01/19/25 01/19/25 10:20 Patient Tobacco Use Status Former Tobacco user 01/19/25 10:20 Tobacco use type Cigarette 01/19/25 10:20 e-Cigarette/Vaping Use Never Used 01/19/25 10:20 PHQ-9: PHQ-9 Score PHQ-9: Total score 12 01/19/25 10:39 Depression Screening Interpretation: Positive Depression Screening Follow-up: Existing condition Thrive Assessment: Date of Thrive Assessment Date Thrive assessed 07/19/24 01/19/25 10:20 Currently or been in a relationship where the following occur: I choose not to answer Const General: alert; No acute distress Eyes Conjunctivae: conjunctivae normal Resp Auscultation: clear to auscultation bilaterally Cardio Rate: regular rate Rhythm: regular rhythm GI Inspection: Yes normal to inspection Extrem General: Yes normal to inspection and No edema Coding Level of Care Code Est Pt Level 4 (95970) Complex EM visit Add On G2211 Diagnoses Mild intermittent asthma without complication J45.20 Asthma complication type: uncomplicated Asthma persistence: intermittent Asthma severity: mild Migraine with aura and without status migrainosus, not intractable G43.109 Intractability: not intractable Migraine type: migraine (< 15 days per month) with aura Status migrainosus presence: without status migrainosus Left knee pain M25.562 Colon cancer screening Z12.11 Gastroesophageal reflux disease without esophagitis K21.9 Esophagitis presence: without esophagitis Morbid obesity E66.01 Generalized anxiety disorder F41.1 Assessment & Plan Assessment & Plan (1) Asthma: Code(s): J45.909 - Unspecified asthma, uncomplicated Category: Medical Qualifiers: Asthma complication type: uncomplicated Asthma persistence: intermittent Asthma severity: mild Qualified Code(s): J45.20 - Mild intermittent asthma, uncomplicated Plan: Patient on albuterol inhaler as needed (2) Migraine: Code(s): G43.909 - Migraine, unspecified, not intractable, without status migrainosus Category: Medical Qualifiers: Intractability: not intractable Migraine type: migraine (< 15 days per month) with aura Status migrainosus presence: without status migrainosus Qualified Code(s): G43.109 - Migraine with aura, not intractable, without status migrainosus Plan: Patient is being followed up by Neurology and has been placed on Topamax rizatriptan B2, magnesium. (3) Left knee pain: Code(s): M25.562 - Pain in left knee Category: Medical Plan: Patient follows up with orthopedics (4) Colon cancer screening: Code(s): Z12.11 - Encounter for screening for malignant neoplasm of colon Category: Medical Plan: Patient is reminded about colonoscopy (5) GERD (gastroesophageal reflux disease): Code(s): K21.9 - Gastro-esophageal reflux disease without esophagitis Category: Medical Qualifiers: Esophagitis presence: without esophagitis Qualified Code(s): K21.9 - Gastro-esophageal reflux disease without esophagitis Plan: Avoid the foods that causes that usually spicy foods, tomato products, juices, coffee, soda and foods that your sensitive to. After eating do not lie down, allow 3-4 hours before in lie down. And keep the head of bed above 30 degrees to avoid the acid from going up. (6) Morbid obesity: Code(s): E66.01 - Morbid (severe) obesity due to excess calories Category: Medical Plan: Diet and exercise (7) Generalized anxiety disorder: Comment: [facility] therapist every 2 weeks Code(s): F41.1 - Generalized anxiety disorder Category: Medical Plan: Continue with counseling and therapy Plan History of Present Illness The patient is a 49-year-old female presenting for a follow-up visit for multiple chronic conditions including morbid obesity, asthma, GERD, generalized anxiety disorder, and bipolar disorder. The patient reports a 9-pound weight gain and is currently managing morbid obesity. She has been attempting weight loss through dietary changes, including reducing rice and pasta intake, and is considering medication options for weight management. The patient has a history of asthma and uses an albuterol inhaler as needed. She reports her breathing is currently stable. The patient has been diagnosed with GERD and experiences heartburn, which she attributes to her obesity. The patient has generalized anxiety disorder and bipolar disorder, for which she is receiving counseling and therapy. She is also on Topamax for migraine management, which was increased to 100 mg at bedtime. The patient has restless leg syndrome, treated with Ropinirole, and fibromyalgia. The patient has a history of knee osteoarthritis and underwent left knee arthroscopy with injections in May 2023. She follows up with orthopedics for ongoing management. Laboratory results indicate elevated blood glucose with normal hemoglobin A1c, low vitamin B12, and low vitamin D levels. Health Maintenance - Mammogram is up to date - Patient reminded about colonoscopy - Blood work requested for fasting glucose, vitamin B12, and vitamin D levels Social History - The patient is attempting weight loss through dietary changes, including reducing rice and pasta intake. - Participates in a support group with neighbors for weight management. Review of Systems - General: Reports weight gain of 9 pounds. - Respiratory: Reports stable breathing, uses albuterol inhaler as needed. - Gastrointestinal: Reports heartburn, attributes it to obesity. - Musculoskeletal: Reports swelling in hands and feet, difficulty walking, uses a walker. - Neurological: Reports migraine, managed with Topamax and Rizatriptan. Physical Exam Results - Labs: Elevated blood glucose, normal hemoglobin A1c, low vitamin B12, low vitamin D. - Urine test: Normal. - HPV test: Negative. Plan Patient was informed and verbally consented to the use of an ambient scribe for clinic note documentation during this visit. 1. Morbid Obesity The patient is advised to continue dietary modifications and consider medication options for weight management. A prescription for Zepbound is being sent, with instructions to monitor weight loss and adjust dosage as needed. 2. Asthma The patient is advised to continue using the albuterol inhaler as needed for asthma management. 3. Gastroesophageal Reflux Disease (Gerd) The patient is advised to manage GERD symptoms through dietary modifications and weight management. 4. Generalized Anxiety Disorder The patient is advised to continue with counseling and therapy for anxiety management. 5. Bipolar Disorder The patient is advised to continue with current therapy and medication regimen for bipolar disorder management. 6. Migraine The patient is advised to continue Topamax and Rizatriptan for migraine management. 7. Restless Leg Syndrome The patient is advised to continue Ropinirole for restless leg syndrome management. 8. Fibromyalgia The patient is advised to continue current management for fibromyalgia. 9. Vitamin B12 Deficiency The patient is advised to address vitamin B12 deficiency through supplementation. 10. Vitamin D Deficiency The patient is advised to address vitamin D deficiency through supplementation. 11. Elevated Blood Glucose The patient is advised to monitor blood glucose levels and maintain a healthy diet. 12. Knee Osteoarthritis Post-Arthroscopy The patient is advised to follow up with orthopedics for ongoing management of knee osteoarthritis. Discussion Notes During the visit, we discussed the patient's weight management options, including dietary changes and the potential use of Zepbound for weight loss. We reviewed the patient's current medication regimen for asthma, GERD, anxiety, bipolar disorder, migraine, restless leg syndrome, and fibromyalgia, emphasizing the importance of adherence to therapy. We also discussed the need for regular follow-up with orthopedics for knee osteoarthritis and the importance of maintaining up-to-date preventative care, including mammograms and colonoscopies. Patient Instructions - Continue dietary changes to aid weight loss. - Use albuterol inhaler as needed for asthma. - Follow GERD management plan with dietary modifications. - Adhere to current medication regimen for anxiety, bipolar disorder, migraine, restless leg syndrome, and fibromyalgia. - Schedule and attend follow-up appointments with orthopedics. - Complete fasting blood work as requested. - Ensure mammogram and colonoscopy are up to date. Orders: Orders Complete Blood Count Auto Diff Today R73.02 - Impaired glucose tolerance (oral) Free T4 (Free Thyroxine) Today R73.02 - Impaired glucose tolerance (oral) UA CC w/rflx Micro + Cult Today R30.0 - Dysuria, R73.02 - Impaired glucose tolerance (oral) Lipid Panel Today E78.00 - Pure hypercholesterolemia, unspecified, R73.02 - Impaired glucose tolerance (oral) Vitamin B12 and Folate Today R73.02 - Impaired glucose tolerance (oral) Vitamin D 25-OH Total Today R73.02 - Impaired glucose tolerance (oral) Magnesium Today R73.02 - Impaired glucose tolerance (oral) C Reactive Protein Today R73.02 - Impaired glucose tolerance (oral) Comprehensive Met. Panel Today R73.02 - Impaired glucose tolerance (oral) Hemoglobin A1c Today R73.02 - Impaired glucose tolerance (oral) Thyroid Stimulating Hormone Today R73.02 - Impaired glucose tolerance (oral) Erythrocyte Sedimentation Rate Today R73.02 - Impaired glucose tolerance (oral) Referrals Gastroenterology Referral Z12.11 - Encounter for screening for malignant neoplasm of colon Medications: New tirzepatide (weight loss) (Zepbound) for 4 weeks 2.5 mg (0.5 mL) subcut QWEEK 2 mL 2RF E66.01 - Morbid (severe) obesity due to excess calories Discontinued amitriptyline Discontinued Reason: Doctor's Order 25 mg PO BEDTIME 90 days 90 tabs 1RF
== END 2025-01-19 10:52 | disposition home or self-care (01) ==
LOC: HO.HMCH 09:47
PROVIDERS: PCP Internal Medicine; Visit Provider Internal Medicine
DX: J45.20 Mild intermittent asthma, uncomplicated (principal); G43.109 Migraine with aura, not intractable, without status migrainosus; E66.01 Morbid (severe) obesity due to excess calories; Z68.41 Body mass index [BMI] 40.0-44.9, adult; M25.562 Pain in left knee; Z12.11 Encounter for screening for malignant neoplasm of colon; K21.9 Gastro-esophageal reflux disease without esophagitis; F41.1 Generalized anxiety disorder

== ENCOUNTER → 2025-01-19 09:43 | Outpatient (BNVA) | payer OTHER, SELFPAY | PROVIDERS: PCP Internal Medicine; Visit Provider Internal Medicine | DX: J45.20 Mild intermittent asthma, uncomplicated (principal); G43.109 Migraine with aura, not intractable, without status migrainosus; M25.562 Pain in left knee; K21.9 Gastro-esophageal reflux disease without esophagitis; E66.01 Morbid (severe) obesity due to excess calories; F41.1 Generalized anxiety disorder | CPT/HCPCS: 96127; 99212 ==

== ENCOUNTER 2025-01-25 07:56 | Outpatient (REF) | payer OTHER, SELFPAY ==
[2025-01-25 08:36] LABS: Hematocrit 44.7 % (37.0-47.0); Hemoglobin 14.7 g/dl (12.0-16.0); Imm Gran Abs Auto 0.03 X10*3/uL (0.00-0.03); Imm Gran Pct Auto 0.3 % (0.0-0.4); Lymphocytes Absolute Auto 2.3 X10*3/uL (1.2-4.9); MANUAL DIFF FLAG NO; Mean Corpuscular HGB Conc 32.9 g/dl (31.0-35.0); Mean Corpuscular Hemoglobin 31.2 pg (27.0-33.0); Mean Corpuscular Volume 94.9 fL (80.0-98.0); NRBC Abs Auto 0.000 X10*3/uL (0.0-0.012); NRBC Pct Auto 0.0 /100WBC (0.0-0.2); Platelet Count 357 X10*3/uL (160-400); Red Blood Count 4.71 X10*6/uL (4.20-5.50); White Blood Count 8.6 X10*3/uL (4.8-10.8)
[2025-01-25 08:49] LABS: Total Hemoglobin (HGBA1C) 3817.9714 umol/L
[2025-01-25 09:13] LABS: Alanine Aminotransferase 24 U/L (0-31); Albumin Level 4.3 g/dL (3.5-5.0); Alkaline Phosphatase 77 U/L (39-117); Anion Gap 11 (12-20); Aspartate Amino Transferase 21 U/L (5-31); Blood Urea Nitrogen 18 mg/dL (9-16); Calcium 9.5 mg/dL (8.4-10.2); Carbon Dioxide 24 mmol/L (22-29); Chloride 110 mmol/L (96-108); Cholesterol 177 mg/dL (<200); Estimated Glomerular Filt Rate 50; HDL Cholesterol 46 mg/dL (>40); Magnesium 2.1 mg/dL (1.6-2.6); Potassium 4.4 mmol/L (3.3-5.1); Sodium 141 mmol/L (135-145); Total Protein 7.7 g/dL (6.5-8.0); Triglycerides 56 mg/dL (<150)
[2025-01-25 09:20] LABS: Free T4 (Free Thyroxine) 0.92 ng/dL (0.71-1.85); Thyroid Stimulating Hormone 1.75 uIU/mL (0.32-4.0)
[2025-01-25 09:31] LABS: Folate 11.4 ng/mL (> or = 4.0); Vitamin B12 300 pg/mL (200-900)
[2025-01-25 09:44] LABS: Appearance Urine Clear; Glucose Urine UA Negative (Negative); PH 6.5 (5.0-9.0); Specific Gravity - Urine 1.020 (1.005-1.025); UMIC TRIGGER UACC YES
== END 2025-01-25 07:57 | disposition home or self-care (01) ==
LOC: HO.LAB 07:56
PROVIDERS: PCP Internal Medicine; Visit Provider Internal Medicine
DX: R73.02 Impaired glucose tolerance (oral) (principal); E78.00 Pure hypercholesterolemia, unspecified; Z13.21 Encounter for screening for nutritional disorder
CPT/HCPCS: 36415; 80053; 80061; 81001; 81003; 82306; 82607; 82746; 83036; 83735; 84439; 84443; 85025; 85652; 86140

== ENCOUNTER 2025-01-27 08:28 | Outpatient (AMB) | payer OTHER, SELFPAY ==
[2025-01-27 08:33] VITALS: BP 126/88; PULSE 86; O2SAT 99; BMI 43.9
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
== END 2025-01-27 09:18 | disposition home or self-care (01) ==
LOC: HO.HSMS 08:28
PROVIDERS: PCP Internal Medicine; Visit Provider Physician Assistant Medical
DX: G43.109 Migraine with aura, not intractable, without status migrainosus (principal); K21.9 Gastro-esophageal reflux disease without esophagitis; E66.01 Morbid (severe) obesity due to excess calories; G43.E19 Chronic migraine with aura, intractable, without status migrainosus; G25.81 Restless legs syndrome; F41.1 Generalized anxiety disorder
CPT/HCPCS: 99214

== ENCOUNTER → 2025-01-27 08:28 | Outpatient (BNVA) | payer OTHER, SELFPAY | PROVIDERS: PCP Internal Medicine; Visit Provider Physician Assistant Medical | DX: G43.E19 Chronic migraine with aura, intractable, without status migrainosus (principal); G25.81 Restless legs syndrome; E66.01 Morbid (severe) obesity due to excess calories; K21.9 Gastro-esophageal reflux disease without esophagitis | CPT/HCPCS: 99212 ==

== ENCOUNTER 2025-02-28 07:42 | Emergency (ER) | payer OTHER, SELFPAY ==
--- NOTE | 2025-02-28 07:44 | ED_ITS ---
HPI - General Adult General Chief complaint: Extremity Problem Stated complaint: L knee pain. Stabbing pain 4 days, locking Time Seen by Provider: 02/28/25 07:43 Source: patient Mode of arrival: ambulatory Limitations: no limitations History of Present Illness ED Provider: Iris Monteiro PA-C HPI narrative: Patient is a 49 year old assigned female at with a history of bipolar disorder, fibromyalgia, previous left knee scope / surgery, SAMANTHA, GERD, asthma, and chronic left knee pain presenting to the emergency department today with acute on chronic left knee pain. Patient states that over the last few years she has had issues with her left knee. However, patient states that over the last 4 days she has had worsening pain. Patient denies any recent trauma but states that she has been walking more because of a recent vehicle breakdown. Patient states she previously saw an orthopedist who did a joint injection but that didn't work and she has not followed up since. Patient denies any other complaints at this time. Patient states that she cannot have NSAIDs because of kidney level issues. Related Data Home Medications ?Medication ?Instructions ?Recorded ?Confirmed ascorbate calcium (vitamin C) 500 500 mg PO DAILY 10/2901/19/25 mg tablet cyanocobalamin (vitamin B-12) 1,000 mcg PO DAILY 03/1701/19/25 1,000 mcg capsule Previous Rx's ?Medication ?Instructions ?Recorded sennosides 8.6 mg-docusate sodium 2 tab-cap (2 x 8.6-5 0 mg) PO 01/15/22 50 mg tablet (Senna-S) BEDTIME 30 days #60 tabs clonidine HCl 0.1 mg tablet 0.1 mg PO TID PRN anxiety 90 days 09/26/22 #270 tabs albuterol sulfate 90 mcg/actuation 2 puff PO Q4-6H PRN shortness of 11/16/22 aerosol inhaler breath or wheezing #8.5 gram s omeprazole 20 mg capsule,delayed 20 mg PO DAILY #90 ca ps 05/08/23 release acetaminophen 500 mg tablet 500 mg PO Q6H PRN pain #30 tabs 05/27/23 (Tylenol Extra Strength) diclofenac sodium 1 % topical gel 4 g topical QID #100 grams 02/16/24 (Voltaren Arthritis Pain) ropinirole 0.25 mg tablet 0.25 mg PO BEDTIME #90 tabs 04/06/24 cholecalciferol (vitamin D3) 25 25 mcg PO DAILY #30 ca ps 07/11/24 mcg (1,000 unit) capsule lamotrigine 25 mg tablet 50 mg (2 x 25 mg) PO BID 90 days 07/19/24 #360 tabs folic acid 1 mg tablet 1 mg PO DAILY headaches #30 tabs 09/29/24 magnesium oxide 400 mg PO BEDTIME #30 tabs 0 09/29/24 riboflavin (vitamin B2) 400 mg 400 mg PO QAM #30 tabs 09/29/24 tablet tirzepatide (weight loss) 2.5 2.5 mg (0.5 mL) subcut Q WEEK #2 mL 01/19/25 mg/0.5 mL subcutaneous pen injector (Zepbound) rizatriptan 10 mg disintegrating 10 mg PO Q2-4H migrai scott 30 days 01/30/25 tablet #12 tabs topiramate 100 mg tablet 100 mg PO BEDTIME migraines #30 01/30/25 tabs ubrogepant 50 mg tablet (Ubrelvy) 50 mg PO DAILY chroi c migraines 2 01/30/25 months #60 tabs prednisone 20 mg tablet 40 mg (2 x 20 mg) PO DAILY C OPD 02/28/25 exacerbation 5 days #10 tabs Allergies Allergy/AdvReac Type Severity Reaction Status Date / Time bacitracin (BACITRACIN) Allergy Mild RASH Verified 02/28/25 07:59 Review of Systems Constitutional: Constitutional: Reports as per HPI Eyes: Eyes: Reports as per HPI ENT: Reports as per HPI Cardiovascular: Cardiovascular: Reports as per HPI Respiratory: Respiratory: Reports as per HPI Gastrointestinal: Gastrointestinal: Reports as per HPI Genitourinary: Genitourinary: Reports as per HPI Musculoskeletal: Musculoskeletal: Reports as per HPI Integumentary/Breasts: Skin/Breast: Reports as per HPI Neurologic: Reports as per HPI Psychiatric: Psychiatric: Reports as per HPI Endocrine: Endocrine: Reports as per HPI Hematologic/Lymphatic: Hematologic/Lymphatic: Reports as per HPI Allergic/Immunologic: Allergic/Immunologic: Reports as per HPI [facility] Past Medical History Attestation statement: The following information was validated with the patient. Source: old records reviewed and nursing notes reviewed Medical History COVID-19 COVID-19 virus infection Restless legs syndrome (RLS) Migraine Hypersomnia Snoring Abnormal CT of brain Chronic migraine with aura PTSD (post-traumatic stress disorder) Bipolar disorder HPV (human papilloma virus) infection Restless leg syndrome Fibromyalgia Vitamin D deficiency Obesity Asthma Surgical History History of dilatation and curettage History of toe surgery Family History Family History Father Diabetes CVD (cardiovascular disease) Cancer Hypertension Slow to wake up after anesthesia Mother Diabetes CVD (cardiovascular disease) Cancer Maternal Grandmother Lung cancer Maternal Grandfather Gastric cancer Paternal Grandmother Ovarian cancer Paternal Grandfather Esophageal cancer Maternal Aunt Breast cancer Maternal Uncle Colon cancer Sister Mental health disorder Bipolar 1 disorder Slow to wake up after anesthesia Other Arthritis Social History Social History Household Members: Children Housing: House Are you a primary child care provider to a significant other at home: Yes (children) Do you presently have visiting nurse or other home services: No Alcohol intake: never Patient Tobacco Use Status: Former Tobacco user Tobacco use type: Cigarette Years Smoked: 2004 stopped e-Cigarette/Vaping Use: Never Used Second Hand Smoke Exposure: Yes Advance Directives: No Advance Directives Information Provided: Yes service: No Current occupational status: employed Current occupation: [employer] Sexual orientation: Straight/Heterosexual Gender identity: Female Cognitive needs: No Hearing needs: No Vision needs: Yes (Glasses) Physical Exam ED Vital Signs: Vital Signs - 24 hr 02/28/25 07:57 Temperature 98.6 F Pulse Rate 96 Respiratory Rate 16 Blood Pressure 134/80 Pulse Oximetry 98 Oxygen Delivery Method Room Air BMI result Body Mass Index 42.4 Const General: cooperative, no acute distress, alert and awake Nutritional Appearance: well nourished Orientation/consciousness: patient oriented x3 HENMT Head: Yes normal to inspection and Yes atraumatic Ears: hearing grossly normal bilaterally and external ears normal General nose exam: Normal external nose present, no nasal discharge noted and no epistaxis Face and sinus: Yes normal facial exam, No abrasion and No laceration Mouth: Normal oral and palatal mucosa present, no drooling and no muffled voice Eyes General: appearance normal, both eyes and all related structures Periorbital: periorbital findings normal Eyelids: Yes eyelids normal Conjunctivae: conjunctivae normal Pupils: Equal, round and reactive pupils present EOM: EOMs intact bilaterally Neck Neck: Yes normal visual inspection and Yes full ROM Resp Effort & Inspection: normal respiratory effort and able to speak in complete sentences Neuro General: patient oriented x3, moves all extremities and CN's II-XI intact bilaterally Cranial nerves: Yes Equal, round and reactive pupils present Cognition (Neuro): normal cognition Extrem Other: Pain with palpation of the medial aspect of the left knee Pain with ROM of the left knee General: Yes normal to inspection and Yes capillary refill normal Psych Appearance: grossly normal Mental Status: mental status grossly normal Affect: normal affect Attitude: cooperative Thought process: Normal thought process present Thought content: Normal thought content present Insight: Good insight present (Psych) Medications Administered Discontinued Medications Generic Name Dose Route Start Last Admin Trade Name Freq PRN Reason Stop Dose Admin Methylprednisolone Sodium Succinate 60 mg 02/28/25 08:01 02/28/25 08:11 Methylprednisolone Sod Succ 125 Mg/2 Ml Vial IM 02/28/25 08:02 60 mg ONCE ONE Administration Procedures Orthopedic Splinting/Casting L knee: Side: left Lower Extremity Injury Location: knee Lower Extremity Immobilizer: knee immobilizer Other Orthopedic Equipment: cane (patient brought one) Medical Decision Making Medical Decision Making MDM Narrative: Patient is a 49 year old assigned female at with a history of bipolar disorder, fibromyalgia, previous left knee scope / surgery, SAMANTHA, GERD, asthma, and chronic left knee pain presenting to the emergency department today with acute on chronic left knee pain. Patient's physical exam was as noted in the physical exam portion of this note and consistent with a left knee sprain / possible MCL injury. I explained my physical exam findings to the patient. I answered all questions asked by the patient. Patient's left knee was placed in a knee immobilizer, without incident. Patient's PMS was intact prior to and after immobilizer placement. Patient was offered crutches and declined, stating she'd prefer to use the cane she came in with. Patient was given IM Solu-medrol while in the department. I stressed the importance of the patient taking her medication as directed (either prescribed or as the over the counter packaging recommends). I stressed the importance of the patient following up with her primary care provider and the orthopedic team. I stressed the importance of the patient returning to the emergency department immediately if her symptoms were to worsen or if she were to develop any dizziness, shortness of breath, difficulty breathing, chest pain, blurry vision, loss of vision, nausea, vomiting, abdominal pain, fever, chills, back pain, or any other complaints. Patient verbalized agreement and understanding with this treatment plan and discharge. Differential Diagnosis Differential Diagnoses: The differential diagnosis associated with the presentation includes Left knee sprain Left knee strain Left MCL injury Acute on chronic left knee pain Admission/Observation Consideration of admission/observation: Escalation of care including admission/observation considered Patient would have been admitted to the hospital had her clinical presentation warranted hospital admission. Tests considered The following testing was considered but not selected: I considered obtaining an x-ray of the left knee, however, the patient's current clinical presentation and lack of trauma did not warrant it at this time. Discharge Plan Discharge Clinical Impression: Acute knee pain, Sprain of knee Patient Disposition: Home, Self-Care Instructions: Knee Sprain (DC), Knee Pain (ED) Additional Instructions: Please wear the knee immobilizer brace for 24 to 48 hours. Allow your knee to rest. After 48 hours you can work on gentle range of motion testing of the knee but stop when you have pain. Follow up with the orthopedic team. IF you are prescribed home medications and/or you are taking over the counter medications at home - it is very important you continue to do so as prescribed / directed unless told otherwise. Follow up with your primary care provider. Return to the emergency department immediately if your symptoms worsen or if you develop any numbness, tingling, dizziness, shortness of breath, difficulty breathing, chest pain, blurry vision, loss of vision, nausea, vomiting, abdominal pain, fever, chills, back pain, or any other complaints. Please see the information below about our Patient Portal. If you are not yet enrolled in the [facility] Patient Portal, you will receive an enrollment email invitation following your visit to any [facility] care setting. You may also self-enroll in the Patient Portal by visiting our website: [email or web address] The following information is required to access the Patient Portal: - Your [facility] Medical Record Number - Your personal home email address (must match what is in your electronic medical record, Registration staff can assist with this) - Name - Date of Capabilities of the Patient Portal: - Message some providers - View upcoming appointments - Access your health summary, medical history, and visit history - View current conditions and allergies - View procedure and lab results - View your medications, including guidelines, side effects, and precautions - Complete pre-appointment questionnaires requested by your provider - Ready summary reports of your office visits and procedures To access the Patient Portal Mobile [employer], follow these directions: - Search [employer] in the [employer] Store or [employer] Store - Download the Ester - Search for [facility] - Enter your login/password Prescriptions: New prednisone 20 mg tablet 40 mg PO DAILY 5 Days Qty: 10 0RF No Action clonidine HCl 0.1 mg tablet 0.1 mg PO TID PRN (Reason: anxiety) 90 Days Qty: 270 1RF albuterol sulfate 90 mcg/actuation HFA aerosol inhaler 2 puff PO Q4-6H PRN (Reason: shortness of breath or wheezing) Qty: 8.5 0RF omeprazole 20 mg capsule,delayed release(DR/EC) 20 mg PO DAILY Qty: 90 1RF cholecalciferol (vitamin D3) 25 mcg (1,000 unit) capsule 25 mcg PO DAILY Qty: 30 1RF acetaminophen [Tylenol Extra Strength] 500 mg tablet 500 mg PO Q6H PRN (Reason: pain) Qty: 30 0RF ascorbate calcium (vitamin C) 500 mg tablet 500 mg PO DAILY cyanocobalamin (vitamin B-12) 1,000 mcg capsule 1,000 mcg PO DAILY sennosides-docusate sodium [Senna-S] 8.6-50 mg tablet 2 tab-cap PO BEDTIME 30 Days Qty: 60 3RF ropinirole 0.25 mg tablet 0.25 mg PO BEDTIME Qty: 90 2RF diclofenac sodium [Voltaren Arthritis Pain] 1 % gel 4 g topical QID Qty: 100 2RF Rx Instructions: apply to single knee, ankle, foot; for foot includes sole/toes/top of foot riboflavin (vitamin B2) 400 mg tablet 400 mg PO QAM Qty: 30 6RF folic acid 1 mg tablet 1 mg PO DAILY MDD 1mg Qty: 30 0RF magnesium oxide 400 mg magnesium tablet 400 mg PO BEDTIME Qty: 30 6RF Zepbound 2.5 mg/0.5 mL pen injector 2.5 mg subcut QWEEK Qty: 2 2RF Rx Instructions: for 4 weeks topiramate 100 mg tablet 100 mg PO BEDTIME MDD 100mg Qty: 30 3RF Rx Instructions: take 1 tablet daily at bedtime for headaches. rizatriptan 10 mg tablet,disintegrating 10 mg PO Q2-4H MDD 20mg 30 Days Qty: 12 0RF Rx Instructions: take one 10mg tablet of rizatriptan for acute and preventive therapy in migraine control. If migraine does not abort in 2 hours you may take one more tablet. Do not take more than 2 tablets in 24 hours. Ubrelvy 50 mg tablet 50 mg PO DAILY MDD 50mg 60 Days Qty: 60 1RF lamotrigine 25 mg tablet 50 mg PO BID 90 Days Qty: 360 2RF Referrals: [facility] [Provider Group] Referral Note: Call to establish and follow up with the orthopedic team. Connie Young MD [Primary Care Provider, Internal Medicine] Stand Alone Forms: Work/School Release Interventions: ED Discharge Assessment Last Done: 02/28/25 08:54 Print Language: Indonesian
[2025-02-28 07:57] VITALS: BP 134/80; PULSE 96; RESP 16; TEMP 37; O2SAT 98; BMI 42.4
[2025-02-28 08:54] VITALS: BP 134/80; PULSE 96; RESP 16; TEMP 37; O2SAT 98
== END 2025-02-28 08:35 | disposition home or self-care (01) ==
LOC: HO.ED 08:06
PROVIDERS: Emergency Provider Emergency Medicine; PCP Internal Medicine
DX: M25.562 Pain in left knee (principal); S83.92XA Sprain of unspecified site of left knee, initial encounter; X58.XXXA Exposure to other specified factors, initial encounter; Y93.9 Activity, unspecified; Y92.9 Unspecified place or not applicable; Y99.9 Unspecified external cause status
CPT/HCPCS: 29505; 96372; 99283; 99284; J2919

== ENCOUNTER → 2025-03-11 07:54 | Outpatient (BNV) | payer OTHER, SELFPAY | PROVIDERS: PCP Internal Medicine; Visit Provider Radiology Diagnostic Radiology | DX: R90.89 Other abnormal findings on diagnostic imaging of central nervous system (principal) | CPT/HCPCS: 70553 ==

== ENCOUNTER 2025-03-11 08:31 | Outpatient (REF) | payer OTHER, SELFPAY ==
--- NOTE | ~2025-03-11 | MR_ITS ---
EXAMINATION: MR BRAIN WITHOUT AND WITH CONTRAST CLINICAL INFORMATION: Brain tumor. Follow-up. R 90.89. COMPARISON: December 03, 2023. TECHNIQUE: Multiplanar, multisequence MRI of the brain was obtained before and after the intravenous administration of 10.0 mL gadolinium based (Gadavist) without reported immediate complications.. FINDINGS: No restricted diffusion. No acute intracranial hemorrhage, mass effect, midline shift, hydrocephalus or herniation. No abnormal enhancement within the intra-axial or the extra-axial compartment of the cranium. Posterior cranial fossa contents demonstrated no signal abnormality or enhancing lesion. Normal position of the cerebellar tonsils. Sellar/suprasellar region is normal. Flow-void signal within the main cerebral vessels is normal. Prominent accessory right parotid gland. MR/MR head/brain wo/w con IMPRESSION: No abnormal enhancing lesion. No acute or structural brain abnormality. Electronically signed by: Wiley Cervantes MD 03/11/2025 09:48 AM EDT
== END 2025-03-11 08:32 | disposition home or self-care (01) ==
LOC: HO.MRI 08:31
PROVIDERS: PCP Internal Medicine; Visit Provider Physician Assistant Medical
DX: G43.E19 Chronic migraine with aura, intractable, without status migrainosus (principal); R90.89 Other abnormal findings on diagnostic imaging of central nervous system
CPT/HCPCS: 70553; A9585

== ENCOUNTER 2025-03-24 10:34 | Emergency (ER) | payer OTHER, SELFPAY ==
--- NOTE | ~2025-03-24 | XR_ITS ---
EXAMINATION: XR ANKLE, LEFT CLINICAL INFORMATION: trip/fall/pain COMPARISON: None available. TECHNIQUE: AP, lateral, and mortise views of the left ankle. FINDINGS: No acute cortical disruption or malalignment. No gross joint effusion. No metallic or radiopaque foreign body. Small plantar calcaneal spur. No lytic or blastic lesions. XR/XR foot LT min 3V IMPRESSION: No acute fracture or dislocation. EXAMINATION: XR FOOT, LEFT CLINICAL INFORMATION: trip/fall/pain COMPARISON: None available. TECHNIQUE: AP, lateral, and oblique views of the left foot. FINDINGS: No acute cortical disruption or malalignment. No metallic or radiopaque foreign body. No lytic or blastic lesions. Small plantar calcaneus spur. No subcutaneous emphysema. IMPRESSION: No acute fracture or dislocation. EXAMINATION: XR TIBIA AND FIBULA, LEFT CLINICAL INFORMATION: trip/fall/pain COMPARISON: None available. TECHNIQUE: AP and cross lateral views of the left tibia and fibula were obtained. FINDINGS: No acute cortical disruption. No metallic or radiopaque foreign body. No lytic or blastic lesions. IMPRESSION: No acute fracture. EXAMINATION: XR KNEE, LEFT CLINICAL INFORMATION: trip/fall/pain COMPARISON: None available. TECHNIQUE: AP, cross lateral view and oblique of the left knee. FINDINGS: No acute cortical disruption or malalignment. Tricompartmental osteoarthrosis/osteoarthritis, mild. No suprapatellar bursa joint effusion. No lytic or blastic lesions. No metallic or radiopaque foreign body. No subcutaneous emphysema. IMPRESSION: No acute fracture or dislocation. Electronically signed by: Wiley Cervantes MD 03/24/2025 11:58 AM EST
--- NOTE | ~2025-03-24 | XR_ITS ---
EXAMINATION: XR ANKLE, LEFT CLINICAL INFORMATION: trip/fall/pain COMPARISON: None available. TECHNIQUE: AP, lateral, and mortise views of the left ankle. FINDINGS: No acute cortical disruption or malalignment. No gross joint effusion. No metallic or radiopaque foreign body. Small plantar calcaneal spur. No lytic or blastic lesions. XR/XR knee LT 4V IMPRESSION: No acute fracture or dislocation. EXAMINATION: XR FOOT, LEFT CLINICAL INFORMATION: trip/fall/pain COMPARISON: None available. TECHNIQUE: AP, lateral, and oblique views of the left foot. FINDINGS: No acute cortical disruption or malalignment. No metallic or radiopaque foreign body. No lytic or blastic lesions. Small plantar calcaneus spur. No subcutaneous emphysema. IMPRESSION: No acute fracture or dislocation. EXAMINATION: XR TIBIA AND FIBULA, LEFT CLINICAL INFORMATION: trip/fall/pain COMPARISON: None available. TECHNIQUE: AP and cross lateral views of the left tibia and fibula were obtained. FINDINGS: No acute cortical disruption. No metallic or radiopaque foreign body. No lytic or blastic lesions. IMPRESSION: No acute fracture. EXAMINATION: XR KNEE, LEFT CLINICAL INFORMATION: trip/fall/pain COMPARISON: None available. TECHNIQUE: AP, cross lateral view and oblique of the left knee. FINDINGS: No acute cortical disruption or malalignment. Tricompartmental osteoarthrosis/osteoarthritis, mild. No suprapatellar bursa joint effusion. No lytic or blastic lesions. No metallic or radiopaque foreign body. No subcutaneous emphysema. IMPRESSION: No acute fracture or dislocation. Electronically signed by: Wiley Cervantes MD 03/24/2025 11:58 AM EST
--- NOTE | ~2025-03-24 | XR_ITS ---
EXAMINATION: XR ANKLE, LEFT CLINICAL INFORMATION: trip/fall/pain COMPARISON: None available. TECHNIQUE: AP, lateral, and mortise views of the left ankle. FINDINGS: No acute cortical disruption or malalignment. No gross joint effusion. No metallic or radiopaque foreign body. Small plantar calcaneal spur. No lytic or blastic lesions. XR/XR ankle LT min 3V IMPRESSION: No acute fracture or dislocation. EXAMINATION: XR FOOT, LEFT CLINICAL INFORMATION: trip/fall/pain COMPARISON: None available. TECHNIQUE: AP, lateral, and oblique views of the left foot. FINDINGS: No acute cortical disruption or malalignment. No metallic or radiopaque foreign body. No lytic or blastic lesions. Small plantar calcaneus spur. No subcutaneous emphysema. IMPRESSION: No acute fracture or dislocation. EXAMINATION: XR TIBIA AND FIBULA, LEFT CLINICAL INFORMATION: trip/fall/pain COMPARISON: None available. TECHNIQUE: AP and cross lateral views of the left tibia and fibula were obtained. FINDINGS: No acute cortical disruption. No metallic or radiopaque foreign body. No lytic or blastic lesions. IMPRESSION: No acute fracture. EXAMINATION: XR KNEE, LEFT CLINICAL INFORMATION: trip/fall/pain COMPARISON: None available. TECHNIQUE: AP, cross lateral view and oblique of the left knee. FINDINGS: No acute cortical disruption or malalignment. Tricompartmental osteoarthrosis/osteoarthritis, mild. No suprapatellar bursa joint effusion. No lytic or blastic lesions. No metallic or radiopaque foreign body. No subcutaneous emphysema. IMPRESSION: No acute fracture or dislocation. Electronically signed by: Wiley Cervantes MD 03/24/2025 11:58 AM EST
--- NOTE | ~2025-03-24 | XR_ITS ---
EXAMINATION: XR ANKLE, LEFT CLINICAL INFORMATION: trip/fall/pain COMPARISON: None available. TECHNIQUE: AP, lateral, and mortise views of the left ankle. FINDINGS: No acute cortical disruption or malalignment. No gross joint effusion. No metallic or radiopaque foreign body. Small plantar calcaneal spur. No lytic or blastic lesions. XR/XR tibia fibula LT 2V IMPRESSION: No acute fracture or dislocation. EXAMINATION: XR FOOT, LEFT CLINICAL INFORMATION: trip/fall/pain COMPARISON: None available. TECHNIQUE: AP, lateral, and oblique views of the left foot. FINDINGS: No acute cortical disruption or malalignment. No metallic or radiopaque foreign body. No lytic or blastic lesions. Small plantar calcaneus spur. No subcutaneous emphysema. IMPRESSION: No acute fracture or dislocation. EXAMINATION: XR TIBIA AND FIBULA, LEFT CLINICAL INFORMATION: trip/fall/pain COMPARISON: None available. TECHNIQUE: AP and cross lateral views of the left tibia and fibula were obtained. FINDINGS: No acute cortical disruption. No metallic or radiopaque foreign body. No lytic or blastic lesions. IMPRESSION: No acute fracture. EXAMINATION: XR KNEE, LEFT CLINICAL INFORMATION: trip/fall/pain COMPARISON: None available. TECHNIQUE: AP, cross lateral view and oblique of the left knee. FINDINGS: No acute cortical disruption or malalignment. Tricompartmental osteoarthrosis/osteoarthritis, mild. No suprapatellar bursa joint effusion. No lytic or blastic lesions. No metallic or radiopaque foreign body. No subcutaneous emphysema. IMPRESSION: No acute fracture or dislocation. Electronically signed by: Wiley Cervantes MD 03/24/2025 11:58 AM EST
[2025-03-24 10:39] VITALS: BP 142/63; BP 164/82; PULSE 100; PULSE 96; RESP 20; TEMP 36.6; O2SAT 100; O2SAT 99; BMI 42.4
[2025-03-24] MEDS: oxyCODONE HCl Immed Release 5 MG TABLET PO (12:17)
--- NOTE | 2025-03-24 13:16 | ED_ITS ---
HPI - Extremity Injury (Lower) General Chief Complaint: Extremity Injury, Lower Stated Complaint: TRIP OVER CAT,TWIATED L KNEE/PAIN,NO FALL Time Seen by Provider: 03/24/25 11:50 Source: patient, EMS, RN notes reviewed and old records reviewed Mode of arrival: EMS History of Present Illness ED Provider: Yoanna Cottrell PA-C HPI Narrative: 49-year-old female with a past medical history PTSD, HPV, bipolar, fibromyalgia, RLS, asthma, presenting to the ED via EMS complaining of left knee pain s/p twisting injury around 02:00 when accidentally tripping over a cat. Denies fall, direct injury/ trauma. States pain radiating to left tibia. Reports difficulty ambulating secondary to pain. Denies taking any medications. Denies weakness, head trauma, LOC, fever Related Data Home Medications ?Medication ?Instructions ?Recorded ?Confirmed ascorbate calcium (vitamin C) 500 500 mg PO DAILY 10/2901/19/25 mg tablet cyanocobalamin (vitamin B-12) 1,000 mcg PO DAILY 03/1701/19/25 1,000 mcg capsule Previous Rx's ?Medication ?Instructions ?Recorded sennosides 8.6 mg-docusate sodium 2 tab-cap (2 x 8.6-5 0 mg) PO 01/15/22 50 mg tablet (Senna-S) BEDTIME 30 days #60 tabs clonidine HCl 0.1 mg tablet 0.1 mg PO TID PRN anxiety 90 days 09/26/22 #270 tabs albuterol sulfate 90 mcg/actuation 2 puff PO Q4-6H PRN shortness of 11/16/22 aerosol inhaler breath or wheezing #8.5 gram s omeprazole 20 mg capsule,delayed 20 mg PO DAILY #90 ca ps 05/08/23 release acetaminophen 500 mg tablet 500 mg PO Q6H PRN pain #30 tabs 05/27/23 (Tylenol Extra Strength) diclofenac sodium 1 % topical gel 4 g topical QID #100 grams 02/16/24 (Voltaren Arthritis Pain) ropinirole 0.25 mg tablet 0.25 mg PO BEDTIME #90 tabs 04/06/24 cholecalciferol (vitamin D3) 25 25 mcg PO DAILY #30 ca ps 07/11/ mcg (1,000 unit) capsule lamotrigine 25 mg tablet 50 mg (2 x 25 mg) PO BID 90 days 07/19/24 #360 tabs magnesium oxide 400 mg PO BEDTIME #30 tabs 0 09/29/24 riboflavin (vitamin B2) 400 mg 400 mg PO QAM #30 tabs 09/29/24 tablet tirzepatide (weight loss) 2.5 2.5 mg (0.5 mL) subcut Q WEEK #2 mL 01/19/25 mg/0.5 mL subcutaneous pen injector (Zepbound) rizatriptan 10 mg disintegrating 10 mg PO Q2-4H migrai scott 30 days 01/30/25 tablet #12 tabs topiramate 100 mg tablet 100 mg PO BEDTIME migraines #30 01/30/25 tabs ubrogepant 50 mg tablet (Ubrelvy) 50 mg PO DAILY chroi c migraines 2 01/30/25 months #60 tabs prednisone 20 mg tablet 40 mg (2 x 20 mg) PO DAILY C OPD 02/28/25 exacerbation 5 days #10 tabs folic acid 1 mg tablet 1 mg PO DAILY headaches #30 tabs 03/16/25 oxycodone 5 mg tablet 5 mg PO Q6H PRN pain (scale score 03/24/25 7-10) 3 days #9 tabs Allergies Allergy/AdvReac Type Severity Reaction Status Date / Time bacitracin (BACITRACIN) Allergy Mild RASH Verified 03/24/25 10:42 Review of Systems Review of Systems: Yes all other systems are reviewed and are negative Constitutional: Constitutional: Reports as per [facility] Past Medical History Attestation statement: The following information was validated with the patient. Source: old records reviewed Medical History COVID-19 COVID-19 virus infection Restless legs syndrome (RLS) Migraine Hypersomnia Snoring Abnormal CT of brain Chronic migraine with aura PTSD (post-traumatic stress disorder) Bipolar disorder HPV (human papilloma virus) infection Restless leg syndrome Fibromyalgia Vitamin D deficiency Obesity Asthma Surgical History History of dilatation and curettage History of toe surgery Family History Family History Father Diabetes CVD (cardiovascular disease) Cancer Hypertension Slow to wake up after anesthesia Mother Diabetes CVD (cardiovascular disease) Cancer Maternal Grandmother Lung cancer Maternal Grandfather Gastric cancer Paternal Grandmother Ovarian cancer Paternal Grandfather Esophageal cancer Maternal Aunt Breast cancer Maternal Uncle Colon cancer Sister Mental health disorder Bipolar 1 disorder Slow to wake up after anesthesia Other Arthritis Social History Social History Household Members: Children Housing: House Are you a primary healthcare prof to a significant other at home: Yes (children) Do you presently have visiting nurse or other home services: No Alcohol intake: never Patient Tobacco Use Status: Former Tobacco user Tobacco use type: Cigarette Years Smoked: 2004 stopped e-Cigarette/Vaping Use: Never Used Second Hand Smoke Exposure: Yes Advance Directives: No Advance Directives Information Provided: Yes service: No Current occupational status: employed 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 Sexual orientation: Straight/Heterosexual Gender identity: Female Cognitive needs: No Hearing needs: No Vision needs: Yes (Glasses) Physical Exam Vital Signs: Vital Signs: Last Vital Signs Temp 97.9 F 03/24/25 10:39 Pulse 96 03/24/25 10:39 Resp 20 03/24/25 10:39 BP 142/63 H 03/24/25 10:39 Pulse Ox 99 03/24/25 10:39 O2 Del Method Room Air 03/24/25 10:39 BMI result Body Mass Index 42.4 Const: General: cooperative, healthy appearing and no acute distress Orientation/consciousness: patient oriented x3 Limitations: no limitations HEENT: Head: Yes normal to inspection and Yes atraumatic Ears: hearing grossly normal bilaterally General nose exam: Normal external nose present Face and sinus: Yes normal facial exam Eyes: General: appearance normal, both eyes and all related structures EOM: EOMs intact bilaterally Neck: Neck: Yes normal visual inspection and Yes no meningeal signs Resp: Effort & Inspection: normal respiratory effort and no respiratory distress Cardio: Rate: regular rate Skin: Rashes: no rashes Wounds: no wounds Neuro: General: patient oriented x3, tone normal and no meningeal signs Cranial nerves: Yes CN's II-XII intact bilaterally Gait exam (Neuro): Normal gait present Extrem: Other: left knee with mild swelling. Diffusely tender to palpation. Limited flexion and full extension secondary to pain. Neurovascularly intact distally. No erythema or warmth. No calf tenderness. No crepitus. Course Course Course Narrative: - x-rays unremarkable > hinged knee brace applied. Recommended PCP/orthopedic follow up Results discussed with patient including worrisome signs and symptoms and strict return precautions, and when to return to the emergency department. They verbalized understanding and feel safe for discharge at this time. Medications Administered Discontinued Medications Generic Name Dose Route Start Last Admin Trade Name Basil PRN Reason Stop Dose Admin Acetaminophen 650 mg 03/24/25 12:03 03/24/25 12:17 Acetaminophen 325 Mg Tablet PO 03/24/25 12:04 650 mg ONCE ONE Administration Oxycodone HCl 5 mg 03/24/25 12:03 03/24/25 12:17 Oxycodone Hcl Immed Release 5 Mg Tablet PO 03/24/25 12:04 5 mg ONCE ONE Administration Medical Decision Making Medical Decision Making MDM Narrative: 49-year-old female with a past medical history PTSD, HPV, bipolar, fibromyalgia, RLS, asthma, presenting to the ED via EMS complaining of left knee pain s/p twisting injury around 02:00 when accidentally tripping over a cat. On exam vital signs stable, NAD, nontoxic appearing, physical exam as noted above. Concern for sprain/ strain vs tendon/meniscal injury. Lower suspicion for fracture, DVT, septic joint plan: X-ray, pain control Please refer to course for remaining clinical decision making, interpretation of labs/imaging results, and discussions with consultants and/or family members. Differential Diagnosis Differential Diagnoses: The differential diagnosis associated with the presentation includes As above Independent Interpretation I performed an independent interpretation of an: Plain X-Ray Radiology Impression Discussion of test interpretation with radiology: I have reviewed the radiologist's reading. External Record Review External record reviewed: Inpatient record, Office record, Outpatient record, Prior outpatient labs, Prior outpatient radiology, Primary care record and Outside ED record Tests considered The following testing was considered but not selected: As above Prescription Management I considered prescription management with: Pain Medication Chronic Conditions Patient?s care impacted by: Other Social Determinants Patient?s care significantly limited by Social Determinants of Health including: Other Social Determinant of Health Procedures Orthopedic Splinting/Casting Injury #1: Side: left Lower Extremity Injury Location: knee Lower Extremity Immobilizer: knee immobilizer ( hinged knee brace) Discharge Plan Discharge Clinical Impression: Knee sprain Qualifiers: Encounter type: initial encounter Laterality: left Patient Disposition: Home, Self-Care Instructions: Knee Pain (ED) Additional Instructions: your x-rays unremarkable Ice and elevate Take Tylenol for pain Oxycodone as an opiate pain medication, take only when pain is severe for the next 3 days. Wear knee brace for comfort and stability. Bear weight as tolerated Follow up with your doctor on Friday as scheduled and Orthopedics. You likely need an MRI Prescriptions: New oxycodone 5 mg tablet 5 mg PO Q6H PRN (Reason: pain (scale score 7-10)) 3 Days Qty: 9 0RF Rx Instructions: Partial Fill upon patient request. No Action clonidine HCl 0.1 mg tablet 0.1 mg PO TID PRN (Reason: anxiety) 90 Days Qty: 270 1RF albuterol sulfate 90 mcg/actuation HFA aerosol inhaler 2 puff PO Q4-6H PRN (Reason: shortness of breath or wheezing) Qty: 8.5 0RF omeprazole 20 mg capsule,delayed release(DR/EC) 20 mg PO DAILY Qty: 90 1RF cholecalciferol (vitamin D3) 25 mcg (1,000 unit) capsule 25 mcg PO DAILY Qty: 30 1RF folic acid 1 mg tablet 1 mg PO DAILY MDD 1mg Qty: 30 0RF acetaminophen [Tylenol Extra Strength] 500 mg tablet 500 mg PO Q6H PRN (Reason: pain) Qty: 30 0RF prednisone 20 mg tablet 40 mg PO DAILY 5 Days Qty: 10 0RF ascorbate calcium (vitamin C) 500 mg tablet 500 mg PO DAILY cyanocobalamin (vitamin B-12) 1,000 mcg capsule 1,000 mcg PO DAILY sennosides-docusate sodium [Senna-S] 8.6-50 mg tablet 2 tab-cap PO BEDTIME 30 Days Qty: 60 3RF ropinirole 0.25 mg tablet 0.25 mg PO BEDTIME Qty: 90 2RF diclofenac sodium [Voltaren Arthritis Pain] 1 % gel 4 g topical QID Qty: 100 2RF Rx Instructions: apply to single knee, ankle, foot; for foot includes sole/toes/top of foot riboflavin (vitamin B2) 400 mg tablet 400 mg PO QAM Qty: 30 6RF magnesium oxide 400 mg magnesium tablet 400 mg PO BEDTIME Qty: 30 6RF Zepbound 2.5 mg/0.5 mL pen injector 2.5 mg subcut QWEEK Qty: 2 2RF Rx Instructions: for 4 weeks topiramate 100 mg tablet 100 mg PO BEDTIME MDD 100mg Qty: 30 3RF Rx Instructions: take 1 tablet daily at bedtime for headaches. rizatriptan 10 mg tablet,disintegrating 10 mg PO Q2-4H MDD 20mg 30 Days Qty: 12 0RF Rx Instructions: take one 10mg tablet of rizatriptan for acute and preventive therapy in migraine control. If migraine does not abort in 2 hours you may take one more tablet. Do not take more than 2 tablets in 24 hours. Ubrelvy 50 mg tablet 50 mg PO DAILY MDD 50mg 60 Days Qty: 60 1RF lamotrigine 25 mg tablet 50 mg PO BID 90 Days Qty: 360 2RF [place] [facility] [place]Provider Group] - 1 week Po,Connie Petersen MD [Primary Care Provider, Internal Medicine] - 3 days Print Language: Turkmen
[2025-03-24 14:04] VITALS: BP 142/63; PULSE 96; RESP 20; TEMP 36.6; O2SAT 99
--- OUTSIDE RECORDS SUMMARY | 2025-03-24 15:02 | XMS_ITS | Continuity of Care Document ---
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 Evaluation in the field was performed by my stock crane operator colleague, as noted above, I provided real-time direction and supervision for this visit. Patient is having pain on her left knee after a fall last night. She states that she did not hit her head or lose consciousness. Patient having severe amount of pain as per medic. He is called 911 as the patient will need imaging. Patient is agreeable to go to [facility] emergency department. I've called in an expect. Impression: Fall, left knee pain Plan: ED Disposition: We discussed the situation and I recommended referral to the emergency department. This was based on severe left knee pain requiring imaging. [email or web address] Not available 03/24/2025 11:07:49 Plan of Treatment Reminders Order Date Submit Date Provider Last Modified By Organization Details Last Modified Time Details Appointments Urgent Care 2024 10:18A M Micah Mabry MD Not available Not available Not available Lab None recorded . Referral None recorded . Procedures None recorded . Surgeries None recorded . Imaging None recorded . Medication Orders None recorded . Patient TargetsNo targets recorded. Patient InstructionsNo instructions recorded. Reason for Referral None Reported. Medical Equipment None Reported. Allergies Allergen ID Allergen Name Allergen Category Reaction Reaction Severity Criticality Documentation Date Start Date Code Code System Note Provider Name and Address Organization Details Recorded Time ibuprofen medicatio n Not available Not available Not available 03/24/2025 5640 RxNorm Not Available [facility] - production 08:30:14 43670 bacitraci n medicatio n Not available Not available Not available 03/24/2025 1291 RxNorm Not Available [facility] - 08:30:14 Medications Name Sig Start Date Stop Date Status Note LastModified by Organization Details LastModified Time amoxicillin 500 mg capsule TAKE 1 CAPSULE BY MOUTH EVERY 8 HOURS UNTIL FINISHED 03/24 completed Not Available Not Available Not Available acetaminoph en 500 mg tablet TAKE 1 TABLET BY MOUTH EVERY 4 TO 6 HOURS NEEDED active Not Available Not Available No t Available magnesium oxide 400 mg (241.3 mg magnesium) tablet TAKE 1 TABLET BY MOUTH AT BEDTIME active Not Available Not Available No t Available ropinirole 0.25 mg tablet TAKE 1 TABLET BY MOUTH AT BEDTIME active Not Available Not Available No t Available folic acid 1 mg tablet TAKE 1 TABLET BY MOUTH DAILY FOR HEADACHES active Not Available Not Available No t Available ibuprofen 600 mg tablet TAKE 1 TABLET BY MOUTH EVERY 6 HOURS WITH FOOD NEEDED FOR PAIN active Not Available Not Available No t Available medroxyprog esterone 150 mg/mL intramuscul ar suspension ADMINISTE R 1 ML IN THE MUSCLE EVERY 3 MONTHS active Not Available Not Available No t Available amoxicillin 875 mg-potassiu m clavulanate 125 mg tablet TAKE 1 TABLET BY MOUTH EVERY 12 HOURS 03/24 completed Not Available Not Available Not Available oxycodone 5 mg tablet TAKE 1 TABLET BY MOUTH EVERY 6 HOURS NEEDED FOR BREAKTHRO UGH PAIN active Not Available Not Available No t Available cholecalcif marcellus (vitamin D3) 25 mcg (1,000 unit) capsule TAKE 1 CAPSULE BY MOUTH DAILY active Not Available Not Available No t Available chlorhexidi ne gluconate 0.12 % mouthwash SWISH AND SPIT 15 ML IN THE MOUTH TWICE DAILY FOR 10 DAYS active Not Available Not Available No t Available riboflavin (vitamin B2) 400 mg tablet TAKE EVERY TABLET BY MOUTH EVERY MORNING active Not Available Not Available No t Available Vitals Date Recorded Respiratory rate Oxygen saturation Oxygen saturation in Arterial blood by Pulse oximetry Heart rate Systolic And Diastolic Provider Name and Address Organization Details Last Updated DateTime 5 22 /min 100 % 100 % 102 /min 148/100 mm[Hg] Not Available [facility] 5 10:18:30 Social History None recorded. Functional Status None recorded. Mental Status None recorded. Family History Nothing Reported. Medical History No medical history recorded. Gynecological HistoryNo gynecological history recorded. Obstetrics History GPAL:G 0 P 0 0 0 0 Past Encounters Encounter ID Performer Location Encounter Start Date Encounter Closed Date Diagnosis/Indication Diagnosis SNOMED-CT Code Diagnosis ICD10 Code Diagnosis IMO Codes Diagnosis Note [id number] Micah Mabry MD [facility] ED Medical [facility] [address] [place] [address] 03/24/2025 10:18:26 03/24/2025 13:58:59 Pain of knee region 4230794714 M25.562 [id number] Health Concerns Section Related Observation LastModified by Organization Detai ls LastModified Time None Recorded Concern Status LastModified by Organization Details LastModified Time None Recorded Payers Encounter Date Sequence Insurance Name Policy Number Policy Silva Covered Member ID Silva Member ID Guarantor Name 03/24/2025 1 [facility] - DOS ON OR AFTER 2022 - DUAL ELIGIBLE - [employer] AND ONE [employer] (MEDICARE REPLACEMENT/ADV ANTAGE - HMO) Denita Nguyen [id number] Denita Nguyen Notes Date Note Type Note Provider Name and Address Organization Details Recorded Time 03/24/2025 text/html ROS as noted in the HPI HPI: Left knee in serious pain can't barely walk can't lay down can't stretch it out can't really do nothing at all. I was walking & my cat got in the way & I twist & turned to avoid stepping on her. Now in serious pain pain shooting down to my ankle. .................. .................. .................. .................. .................. .................. .................. ............... [facility] Nurse Triage Notes (Pretty Cabello): Denies: Falls with head strike and LOC Falls from a standing position, no LOC, patient is amnestic to the event Falls with isolated injury and deformity noted to limb Falls with inability to move post fall Cool extremities after fall or injury Chief Complaints: Extremity Pain PMH: Fibromyalgia, Rheumatoid Arthritis, Depression, Bipolar Disorder, Anxiety Disorder, Chronic Kidney Disease PMH Reviewed at 03/24/2025:30 Allergies Reviewed at 03/24/2025:30 Pain Assessment: Level 10 out of 10 Comments: 49 y.o female complains of Extremity Pain Self-referring. Near fall at 2 am this morning. Didn't see her cat, tripped over her and twisted her L knee in the process. Unsure if knee or leg or foot is swollen - reports I have thicker calves so it's hard to tell . Denies bruising or redness. Attempted to see if foot was warm but unable to due to pain. Pain extends from her knee down to her ankle. Rating pain 20/10 . Unable to bear weight on that leg. Has not taken any PRNs. Unable to take ibuprofen - CKD. Informed of inability to perform imaging if necessary, patient reports understanding. Doesn't take daily RA medication or anticoagulation. Requesting instED visit. I provided information on the mobile health provider response time and advised the patient and/or caregiver to monitor reported signs and symptoms. I discussed the warning signs of when to seek emergency care. .................. .................. .................. .................. .................. .................. .................. ............... Economics Lecturer Note From Todd Dupont: Dispatched to above address for knee pain. On arrival patient met SC8 at the door, using walker, unsteady gait, unable to bear weight on L leg, AOX4, airway patent, speaking in full sentences, good color, appears uncomfortable. Patient assisted to chair. Patient reports last night around 2-3 am she was walking to the bathroom, tripped over her cat, did not fall but twisted her knee, felt a snap has been having severe 20/10 pain radiating from L knee to ankle since, unable to bear weight or get comfortable with rest, having numbness and tingling from ankle to toes. Patients vital signs checked. On exam no obvious swelling bruising or deformity, pain to palpation around L knee down to ankle, pedal pulses intact, ROM limited by pain. Secondary assessment, pupils PERRL, airway patent, no JVD, trachea midline, equal chest rise and fall, lungs clear all grissom, abdomen soft non tender, no additional signs of injury, good radial pulse, skin pink warm and dry. [facility] contacted, spoke with Dr. Mabry, advised of patient complaints and exam findings. [facility] agreed patient needs to be seen in the ER for imaging and further work up. Patient agrees with this plan. 911 contacted, [facility] responded. Verbal report given to [facility], took over patient care, will transport [facility]. SC8 clear. EOR. .................. .................. .................. .................. .................. .................. .................. ............... [facility] Consulted: Micah Mabry .................. .................. .................. .................. .................. .................. .................. ............... Disposition: Fulfilled Micah Mabry MD [address] [place] [address],[address], [place], [address], [employer] [facility] 03/24/2025 13:29:53 OBGyn Episode No OBEpisode recorded.
--- OUTSIDE RECORDS SUMMARY | 2025-03-24 15:02 | XMS_ITS | Data Portability ---
Author Organization [facility], [facility] Address [address] [place] [address] Care Team Providers Care Line Camera Operator Name Role Phone HIM CCA OTHER PO, EMMAMARIUSZ Primary Care Provider Assessment Encounter Date Assessment Date Assessment LastModified by Organization Details LastModified Time 03/24/2025 03/24/2025 As noted, we were called to see this patient regarding concerns of Left knee pain. Evaluation in the field was performed by my horticultural manager colleague, as noted above, I provided real-time direction and supervision for this visit. Patient is having pain on her left knee after a fall last night. She states that she did not hit her head or lose consciousness. Patient having severe amount of pain as per medic. He is called 911 as the patient will need imaging. Patient is agreeable to go to [facility] emergency department. I've called in an expect. [...] RxNorm Not Available [facility] - production 08:30:14 34602 bacitraci n medicatio n Not available Not available Not available 03/24/2025 1291 RxNorm Not Available [facility] Medications Name Sig Start Date Stop [...] % 102 /min 148/100 mm[Hg] Not Available [facility] 5 10:18:30 Social History None recorded. Functional Status None recorded. Mental Status None recorded. Family History Nothing Reported. Medical History No medical history recorded. Gynecological HistoryNo gynecological history recorded. Obstetrics History GPAL:G 0 P 0 0 0 0 Past Encounters Encounter ID Performer Location Encounter Start Date Encounter Closed Date Diagnosis/Indication Diagnosis SNOMED-CT Code Diagnosis ICD10 Code Diagnosis IMO Codes Diagnosis Note [id number] Micah Mabry MD [facility] ED Medical [address] [address] 03/24/2025 10:18:26 03/24/2025 13:58:59 Pain of knee region 5869288266 M25.562 [id number] Health Concerns Section Related Observation LastModified by Organization Detai ls LastModified Time None Recorded Concern Status LastModified by Organization Details LastModified Time None Recorded Advance Directives Directive None Recorded Payers Insurance Date Sequence Insurance Name Policy Number Policy Silva Covered Member ID Silva Member ID Guarantor Name 03/24/[address] [facility] - DOS ON OR AFTER 2022 - DUAL ELIGIBLE - SNF OPTIONS AND ONE CARE (MEDICARE REPLACEMENT/ADV ANTAGE - HMO) Denita Nguyen [id number] Denita Nguyen Notes Date Note Type Note [...] Disorder, Chronic Kidney Disease PMH Reviewed at 03/24/2025 Allergies Reviewed at 03/24/2025:30 Pain Assessment: Level [...] .................. .................. .................. .................. .................. .................. ............... Skull Grinder Note From Todd Dupont: Dispatched to above [...] radial pulse, skin pink warm and dry. [facility] contacted, spoke with Dr. Mabry, advised of patient complaints and exam findings. [facility] agreed patient needs to be seen in the ER for imaging and further work up. Patient agrees with this plan. 911 contacted, [facility] responded. Verbal report given to [facility], took over patient care, will transport [facility]. SC8 clear. EOR. .................. .................. .................. .................. .................. .................. .................. ............... [facility] Consulted: Micah Mabry .................. .................. .................. .................. .................. .................. .................. ............... Disposition: Fulfilled Micah Mabry MD [address] [place] [address],[address], [place], [address], KARLA - EDITH ALVARES 03/24/2025 13:29:53 OBGyn Episode No OBEpisode recorded.
== END 2025-03-24 14:04 | disposition home or self-care (01) ==
PROVIDERS: Emergency Provider Emergency Medicine; PCP Internal Medicine
DX: S83.92XA Sprain of unspecified site of left knee, initial encounter (principal); M25.562 Pain in left knee; X58.XXXA Exposure to other specified factors, initial encounter; Y93.9 Activity, unspecified; Y92.9 Unspecified place or not applicable; Y99.8 Other external cause status
CPT/HCPCS: 73564; 73590; 73610; 73630; 99283

== ENCOUNTER → 2025-03-24 11:47 | Outpatient (BNV) | payer OTHER, SELFPAY | PROVIDERS: PCP Internal Medicine; Visit Provider Radiology Diagnostic Radiology | DX: M25.562 Pain in left knee (principal); M25.572 Pain in left ankle and joints of left foot; M79.672 Pain in left foot; M79.662 Pain in left lower leg; W01.0XXA Fall on same level from slipping, tripping and stumbling without subsequent striking against object, initial encounter | CPT/HCPCS: 73564; 73590; 73610; 73630 ==

== ENCOUNTER 2025-03-28 08:21 | Outpatient (AMB) | payer OTHER, SELFPAY ==
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
== END 2025-03-28 09:34 | disposition home or self-care (01) ==
LOC: HO.HOS 08:22
PROVIDERS: PCP Internal Medicine; Visit Provider Physician Assistant
DX: M17.12 Unilateral primary osteoarthritis, left knee (principal)
CPT/HCPCS: 20610; 99213

== ENCOUNTER → 2025-03-28 08:27 | Outpatient (BNV) | payer OTHER, SELFPAY | PROVIDERS: Visit Provider Radiology Diagnostic Ultrasound | DX: M17.12 Unilateral primary osteoarthritis, left knee (principal) | CPT/HCPCS: 73560 ==

== ENCOUNTER 2025-03-28 09:04 | Outpatient (REF) | payer OTHER, SELFPAY ==
--- NOTE | ~2025-03-28 | XR_ITS ---
EXAMINATION: XR KNEE, LEFT CLINICAL INFORMATION: M25.562 - Pain in left knee COMPARISON: X-ray 03/24/2025 TECHNIQUE: AP bilateral knees one view. Left knee sunrise one view. FINDINGS: Left knee: Moderate medial compartment arthritis. Mild lateral and patellofemoral arthritis. No visible acute fracture or dislocation. No suspicious bony lesions. No suspicious soft tissue calcification. Right knee: Single frontal view. Moderate medial compartment arthritis. Mild lateral compartment arthritis. XR/XR knee LT 2V IMPRESSION: Left knee: Tricompartment arthritis. Moderate medial compartment arthritis. Electronically signed by: Thomas Mccain MD 03/28/2025 08:46 AM EST
--- OUTSIDE RECORDS SUMMARY | 2025-03-29 18:51 | XMS_ITS | Data Portability ---
Author Organization [employer] [facility], [facility] Address [address] [place] [address] Care Team Providers Care Archivist Political History Name Role Phone HIM CCA OTHER PO EMMAMARIUSZ Primary Care Provider Assessment Encounter Date Assessment Date Assessment LastModified by Organization Details LastModified Time 03/24/2025 03/24/2025 As noted, we were called to see this patient regarding concerns of Left knee pain. Evaluation in the field was performed by my ship engineer colleague, as noted above, I provided real-time direction and supervision for this visit. Patient is having pain on her left knee after a fall last night. She states that she did not hit her head or lose consciousness. Patient having severe amount of pain as per medic. He is called 911 as the patient will need imaging. Patient is agreeable to go to [place] emergency department. I've called in an expect. Impression: Fall, left knee pain Plan: ED Disposition: We discussed the situation and I recommended referral to the emergency department. This was based on severe left knee pain requiring imaging. [email or web address] Not available 03/24/2025 11:07:49 Plan of Treatment Reminders Order Date Submit Date Provider Last Modified By Organization Details Last Modified Time Details Appointments None record ed. Lab None record ed. Referral None record ed. Procedures None record ed. Surgeries None record ed. Imaging None record ed. Medication Orders None record ed. Patient TargetsNo targets recorded. Patient InstructionsNo instructions recorded. Reason for Referral None Reported. Medical Equipment None Reported. Allergies Allergen ID Allergen Name Allergen Category Reaction Reaction Severity Criticality Documentation Date Start Date Code Code System Note Provider Name and Address Organization Details Recorded Time ibuprofen medicatio n Not available Not available Not available 03/24/2025 5640 RxNorm Not Available [facility] - production 08:30:14 bacitraci n medicatio n Not available Not available Not available 03/24/2025 1291 RxNorm Not Available [facility] 08:30:14 Medications Name Sig Start Date Stop [...] % 102 /min 148/100 mm[Hg] Not Available [facility] 10:18:30 Social History None recorded. Functional Status None recorded. Mental Status None recorded. Family History Nothing Reported. Medical History No medical history recorded. Gynecological HistoryNo gynecological history recorded. Obstetrics History GPAL:G 0 P 0 0 0 0 Past Encounters Encounter ID Performer Location Encounter Start Date Encounter Closed Date Diagnosis/Indication Diagnosis SNOMED-CT Code Diagnosis ICD10 Code Diagnosis IMO Codes Diagnosis Note [id number] Micah Mabry MD [facility] ED Medical [facility] [address] [place] [address] 03/24/2025 10:18:26 03/24/2025 13:58:59 Pain of knee region [id number] M25.562 [id number] Health Concerns Section Related Observation LastModified by Organization Detai ls LastModified Time None Recorded Concern Status LastModified by Organization Details LastModified Time None Recorded Advance Directives Directive None Recorded Payers Insurance Date Sequence Insurance Name Policy Number Policy Silva Covered Member ID Silva Member ID Guarantor Name 03/26/2025 1 [facility] - DOS ON OR AFTER 2022 - DUAL ELIGIBLE - RETIREMENT OPTIONS AND ONE CARE (MEDICARE REPLACEMENT/ADV ANTAGE - HMO) Denita Nguyen [id number] Denita Nguyen Notes Date Note Type Note [...] Chronic Kidney Disease PMH Reviewed at 03/24/2025 - :30 Allergies Reviewed at 03/24/2025:30 Pain Assessment: Level [...] .................. .................. .................. .................. .................. .................. ............... Sales Special Agent Note From Todd Dupont: Dispatched to above [...] radial pulse, skin pink warm and dry. [facility] contacted, spoke with Dr. Mabry, advised of patient complaints and exam findings. [facility] agreed patient needs to be seen in the ER for imaging and further work up. Patient agrees with this plan. 911 contacted, [facility] responded. Verbal report given to [facility], took over patient care, will transport [facility]. SC8 clear. EOR. .................. .................. .................. .................. .................. .................. .................. ............... [facility] Consulted: Micah Mabry .................. .................. .................. .................. .................. .................. .................. ............... Disposition: Fulfilled Micah Mabry MD [address] [facility],[address] [facility], [place], [address], [employer] 03/24/2025 13:29:53 OBGyn Episode No OBEpisode recorded.
--- OUTSIDE RECORDS SUMMARY | 2025-03-29 18:51 | XMS_ITS | Continuity of Care Document ---
Author Organization [employer] [facility], [facility] [employer] [facility] Address [address] [place] [id number] Care Team Providers Care Contact Center Associate Name Role Phone HIM CCA OTHER PO, EMMAMARIUSZ Primary Care Provider [phone] Assessment Encounter Date Assessment Date Assessment LastModified by Organization Details LastModified Time 03/24/2025 03/24/2025 As noted, we were called to see this patient regarding concerns of Left knee pain. Evaluation in the field was performed by my level vial inside grinder colleague, as noted above, I provided real-time direction and supervision for this visit. Patient is having pain on her left knee after a fall last night. She states that she did not hit her head or lose consciousness. Patient having severe amount of pain as per medic. He is called 911 as the patient will need imaging. Patient is agreeable to go to [place] emergency department. I've called in an expect. [...] RxNorm Not Available [facility] - production 08:30:14 [id number] bacitraci n medicatio n Not available Not available Not available 03/24/2025 1291 RxNorm Not Available An[facility] 5 08:30:14 Medications Name Sig Start Date [...] % 102 /min 148/100 mm[Hg] Not Available [facility] 5 10:18:30 Social History None recorded. Functional Status None recorded. Mental Status None recorded. Family History Nothing Reported. Medical History No medical history recorded. Gynecological HistoryNo gynecological history recorded. Obstetrics History GPAL:G 0 P 0 0 0 0 Past Encounters Encounter ID Performer Location Encounter Start Date Encounter Closed Date Diagnosis/Indication Diagnosis SNOMED-CT Code Diagnosis ICD10 Code Diagnosis IMO Codes Diagnosis Note [id number] Micah Mabry MD [facility] ED Medical [facility] [address] [place] [address] 03/24/2025 10:18:26 03/24/2025 13:58:59 Pain of knee region 8499617706 M25.562 [id number] Health Concerns Section Related Observation LastModified by Organization Detai ls LastModified Time None Recorded Concern Status LastModified by Organization Details LastModified Time None Recorded Payers Encounter Date Sequence Insurance Name Policy Number Policy Silva Covered Member ID Silva Member ID Guarantor Name 03/24/2025 1 [facility] - DOS ON OR AFTER 2022 - DUAL ELIGIBLE - USP OPTIONS AND ONE CARE (MEDICARE REPLACEMENT/ADV ANTAGE - HMO) Denita Nguyen [id number] Denita Nguyen Notes Date Note Type Note [...] at 03/24/2025 - :30 Allergies Reviewed at 03/24/2025 - :30 Pain Assessment: Level 10 out of 10 [...] .................. .................. .................. .................. .................. .................. ............... Advisory Application Developer Note From Todd Dupont: Dispatched to above [...] radial pulse, skin pink warm and dry. [facility] contacted, spoke with Dr. Mabry, advised of patient complaints and exam findings. [facility] agreed patient needs to be seen in the ER for imaging and further work up. Patient agrees with this plan. 911 contacted, [facility] responded. Verbal report given to [facility], took over patient care, will transport [facility]. SC8 clear. EOR. .................. .................. .................. .................. .................. .................. .................. ............... [facility] Consulted: Micah Mabry .................. .................. .................. .................. .................. .................. .................. ............... Disposition: Fulfilled Micah Mabry MD [address] [facility],[address], [place], [address], [employer] 03/24/2025 13:29:53 OBGyn Episode No OBEpisode recorded.
== END 2025-03-28 09:05 | disposition home or self-care (01) ==
LOC: HO.HOSX 09:04
PROVIDERS: Visit Provider Physician Assistant
DX: M17.12 Unilateral primary osteoarthritis, left knee (principal)
CPT/HCPCS: 20610; 73560; 99212; J0665; J1100; J2003

== ENCOUNTER 2025-04-07 07:07 | Emergency (ER) | payer OTHER, SELFPAY ==
--- NOTE | 2025-04-07 | ECG_ITS ---
Test Reason : BLOOD LOSS/DIZZINESS Blood Pressure : */* mmHG Vent. Rate : 82 BPM Atrial Rate : 82 BPM P-R Int : 132 ms QRS Dur : 78 ms QT Int : 396 ms P-R-T Axes : 38 43 27 degrees QTcB Int : 462 ms Normal sinus rhythm Normal ECG When compared with ECG of 04-Dec-2023 08:31, No significant change was found Referred By: Generic ED Physician Electronically Signed By: Bennett Sneed
--- NOTE | ~2025-04-07 | CT_ITS ---
CLINICAL HISTORY: abdominal pain LLQ CT abdomen and pelvis with contrast Comparison: CT/SR - CT ABDOMEN PELVIS WITH IV CONTRAST - 12/04/23 10:[address]/REG/SR - CT ABDOMEN PELVIS W IV CON - 05/27/23 18:31 EST Findings: The heart is not enlarged. The lung bases are clear. No bowel obstruction. Colonic mural thickening and pericolonic fat stranding which is most conspicuous at the level of the splenic flexure and distally. No evidence of perforation or abscess. Tiny fat containing umbilical hernia. No bowel obstruction. Normal appendix. Pelvic structures unremarkable. Mild degenerative change of the spine which is most conspicuous within the mid to lower thoracic region. Mild bilateral sacroiliac joint periarticular sclerosis and possible tiny erosions which are more conspicuous on the left. Mild bilateral hip osteoarthritis. IMPRESSION: Distal colitis. Recommend exclusion of inflammatory bowel disease given the bilateral sacroiliitis which may represententeropathic spondyloarthropathy. This document has been electronically signed by: Camden Brand DO on 04/07/2025 09:30:08
[2025-04-07 07:30] VITALS: BP 149/79; BP 152/94; PULSE 85; RESP 17; TEMP 36.8; O2SAT 97; O2SAT 98; BMI 39.8
[2025-04-07 07:32] LABS: MANUAL DIFF FLAG NO
[2025-04-07 07:33] LABS: Hematocrit 48.1 % (37.0-47.0); Hemoglobin 16.1 g/dl (12.0-16.0); Imm Gran Abs Auto 0.07 X10*3/uL (0.00-0.03); Imm Gran Pct Auto 0.5 % (0.0-0.4); Lymphocytes Absolute Auto 1.2 X10*3/uL (1.2-4.9); Mean Corpuscular HGB Conc 33.5 g/dl (31.0-35.0); Mean Corpuscular Hemoglobin 30.8 pg (27.0-33.0); Mean Corpuscular Volume 92.1 fL (80.0-98.0); NRBC Abs Auto 0.000 X10*3/uL (0.0-0.012); NRBC Pct Auto 0.0 /100WBC (0.0-0.2); Platelet Count 357 X10*3/uL (160-400); Red Blood Count 5.22 X10*6/uL (4.20-5.50); White Blood Count 15.1 X10*3/uL (4.8-10.8)
[2025-04-07 07:34] VITALS: BP 149/79; PULSE 85; RESP 17; TEMP 36.8; O2SAT 98
[2025-04-07 07:39] LABS: INTERNATIONAL NORM RATIO 1.0 (0.9-1.1); Prothrombin Time 12.5 SEC (11.2-13.5)
--- NOTE | 2025-04-07 07:42 | ED.GENADULT ---
HPI - General Adult General Chief complaint: GI Bleed Stated complaint: LLQ PAIN,BLOOD IN STOOL/ PER EMS Time Seen by Provider: 04/07/25 07:42 Source: patient and EMS Mode of arrival: EMS Limitations: no limitations History of Present Illness ED Provider: HPI narrative: 49-year-old woman presenting with bloody stools, no indication that she has hematuria as documented in triage note or jose f bloody vomitus, she is complaining of right lower quadrant abdominal pain, states usually she is constipated, when she went to the bathroom she noted that she has having jose f blood with some mucus in the toilet bowl. She started feeling dizzy upon noting this. No fevers or chills, she is not on blood thinners, no alcohol use. Related Data Home Medications ?Medication ?Instructions ?Recorded ?Confirmed ascorbate calcium (vitamin C) 500 500 mg PO DAILY 03/17/20 03/28/25 mg tablet cyanocobalamin (vitamin B-12) 1,000 mcg PO DAILY 03/17/20 03/28/25 1,000 mcg capsule Previous Rx's ?Medication ?Instructions ?Recorded sennosides 8.6 mg-docusate sodium 2 tab-cap (2 x 8.6-50 mg) PO 01/15/22 50 mg tablet (Senna-S) BEDTIME 30 days #60 tabs clonidine HCl 0.1 mg tablet 0.1 mg PO TID PRN anxiety 90 days 09/26/22 #270 tabs albuterol sulfate 90 mcg/actuation 2 puff PO Q4-6H PRN shortness of 11/16/22 aerosol inhaler breath or wheezing #8.5 grams omeprazole 20 mg capsule,delayed 20 mg PO DAILY #90 caps 05/08/23 release acetaminophen 500 mg tablet 500 mg PO Q6H PRN pain #30 tabs 05/27/23 (Tylenol Extra Strength) ropinirole 0.25 mg tablet 0.25 mg PO BEDTIME #90 tabs 04/06/24 cholecalciferol (vitamin D3) 25 25 mcg PO DAILY #30 caps 07/11/24 mcg (1,000 unit) capsule lamotrigine 25 mg tablet 50 mg (2 x 25 mg) PO BID 90 days 07/19/24 #360 tabs magnesium oxide 400 mg PO BEDTIME #30 tabs 09/29/24 riboflavin (vitamin B2) 400 mg 400 mg PO QAM #30 tabs 09/29/24 tablet tirzepatide (weight loss) 2.5 2.5 mg (0.5 mL) subcut QWEEK #2 mL 01/19/25 mg/0.5 mL subcutaneous pen injector (Zepbound) rizatriptan 10 mg disintegrating 10 mg PO Q2-4H migraines 30 days 01/30/25 tablet #12 tabs topiramate 100 mg tablet 100 mg PO BEDTIME migraines #30 01/30/25 tabs ubrogepant 50 mg tablet (Ubrelvy) 50 mg PO DAILY chroic migraines 2 01/30/25 months #60 tabs folic acid 1 mg tablet 1 mg PO DAILY headaches #30 tabs 03/16/25 diclofenac sodium 1 % topical gel 4 g topical QID #100 grams 03/28/25 (Voltaren Arthritis Pain) ciprofloxacin HCl 500 mg tablet 500 mg PO BID 10 days #20 tabs 04/07/25 loperamide 2 mg capsule 2 mg PO Q6H PRN loose stool #30 04/07/25 caps metronidazole 500 mg tablet 500 mg PO BID 10 days #20 tabs 04/07/25 oxycodone 5 mg tablet 5 mg PO Q6H PRN pain #10 tabs 04/07/25 Allergies Allergy/AdvReac Type Severity Reaction Status Date / Time bacitracin (BACITRACIN) Allergy Mild RASH Verified 04/07/25 07:33 Review of Systems Constitutional: Constitutional: Reports as per [facility] Past Medical History Medical History COVID-19 COVID-19 virus infection Restless legs syndrome (RLS) Migraine Hypersomnia Snoring Abnormal CT of brain Chronic migraine with aura PTSD (post-traumatic stress disorder) Bipolar disorder HPV (human papilloma virus) infection Restless leg syndrome Fibromyalgia Vitamin D deficiency Obesity Asthma Surgical History History of dilatation and curettage History of toe surgery Family History Family History Father Diabetes CVD (cardiovascular disease) Cancer Hypertension Slow to wake up after anesthesia Mother Diabetes CVD (cardiovascular disease) Cancer Maternal Grandmother Lung cancer Maternal Grandfather Gastric cancer Paternal Grandmother Ovarian cancer Paternal Grandfather Esophageal cancer Maternal Aunt Breast cancer Maternal Uncle Colon cancer Sister Mental health disorder Bipolar 1 disorder Slow to wake up after anesthesia Other Arthritis Social History Social History Household Members: Children Housing: House Are you a primary respiratory care technician to a significant other at home: Yes (children) Do you presently have visiting nurse or other home services: No Alcohol intake: never Patient Tobacco Use Status: Former Tobacco user Tobacco use type: Cigarette Years Smoked: 2004 stopped Smoked in Last 30 Days: No e-Cigarette/Vaping Use: Never Used Second Hand Smoke Exposure: Yes Use of substances other than those prescribed or required for medical reasons: No Advance Directives: No Advance Directives Information Provided: Yes Do you have a plan to hurt others: No Plan Patient : No service: No Current occupational status: employed 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 Sexual orientation: Straight/Heterosexual Gender identity: Female Cognitive needs: No Hearing needs: No Vision needs: Yes (Glasses) Physical Exam ED Exam Exam: ?General: ??looks age appropriate ?PERRLA, EOMI, MMM, no scleral icterus Neck: Supple, no LAD ?CV: RRR, no obvious murmurs appreciated ?Resp: ?No wheezing rales rhonchi no stridor moving air well Abd: ?Bowel sounds are present, isolated left lower quadrant tenderness with voluntary guarding Skin: Warm, dry, intact, no jaundice ?Neuro: ?Alert and oriented x3, moving upper and lower extremities symmetrically, no obvious facial asymmetry noted, cranial nerves 2-12 intact Vital Signs: Vital Signs - 24 hr 04/07/25 07:30 04/07/25 07:34 04/07/25 07:57 Temperature 98.3 F 98.3 F Pulse Rate 85 85 Respiratory Rate 17 17 18 Blood Pressure 149/79 H 149/79 H Pulse Oximetry 98 98 Oxygen Delivery Method Room Air Room Air 04/07/25 10:32 Temperature 98.2 F Pulse Rate 72 Respiratory Rate 16 Blood Pressure 138/79 Pulse Oximetry 97 Oxygen Delivery Method Room Air BMI result Body Mass Index 39.8 Medications Administered Discontinued Medications Generic Name Dose Route Start Last Admin Trade Name Freq PRN Reason Stop Dose Admin Iohexol 100 ml 04/07/25 08:58 11/27/25 08:58 Iohexol 350 Mg/Ml 100 Ml Infus..Btl IV 04/07/25 08:59 85 ml ONCE ONE Administration Morphine Sulfate 4 mg 04/07/25 07:50 04/07/25 07:57 Morphine Sulfate 4 Mg/Ml Cartridge IVPUSH 04/07/25 07:51 4 mg ONCE ONE Administration Protocol Medical Decision Making Medical Decision Making MDM Narrative: 7:53 AM 04/07/2025 (Dr. Curtis Lara): Patient was able to give a stool sample she has had constipation and then thought she has diarrhea but it turned out to be bloody bowel movement, her H&H is stable, she is hemodynamically stable, she does have left lower quadrant tenderness on physical examination, we will obtain imaging to evaluate for diverticulitis, stool impaction, disposition to be determined, she is indicating significant left lower quadrant pain we will give IV fluids and pain medications 10:12 AM 04/07/2025 (Dr. Curtis Lara): There is some evidence of distal colitis on CT I reached out to GI doctor Anne with outpatient management follow up and questions whether this would be potential steroids or antibiotics 10:44 AM 04/07/2025 (Dr. Curtis Lara): GI reccs Stool panel and c.diff no NSAIDS and Cipro and Flagyl regimen, discuss this with the patient see my discharge instructions and return precautions Differential Diagnosis Differential Diagnoses: The differential diagnosis associated with the presentation includes (Diverticulitis, internal hemorrhoid, external hemorrhoid, upper GI bleed, anemia) Admission/Observation Consideration of admission/observation: Escalation of care including admission/observation considered Consult Healthcare Provider Management of the patient was discussed with: System Developer Associate Manager (Dr. Rodríguez) Lab Data [facility] Lab Attestation statement: I reviewed the patient's lab results. 04/07/25 07:27 04/07/25 07:27 Labs: Lab Results 04/07/25 Range/Units 07:27 WBC 15.1 H (4.8-10.8) X10*3/uL RBC 5.22 (4.20-5.50) X10*6/uL Hgb 16.1 H (12.0-16.0) g/dl Hct 48.1 H (37.0-47.0) % MCV 92.1 (80.0-98.0) fL MCH 30.8 (27.0-33.0) pg MCHC 33.5 (31.0-35.0) g/dl RDW 13.0 (11.0-16.0) % Plt Count 357 (160-400) X10*3/uL MPV 9.8 (9.4-12.3) fL Immature Gran % (Auto) 0.5 H (0.0-0.4) % Neut % (Auto) 86.8 H (45-73) % Lymph % (Auto) 7.9 L (20-40) % Price % (Auto) 4.5 (2-11) % Eos % (Auto) 0.1 (0-4) % Baso % (Auto) 0.2 (0-2) % Lymph # (Auto) 1.2 (1.2-4.9) X10*3/uL Price # (Auto) 0.7 (0.1-1.2) X10*3/uL Eos # (Auto) 0.0 (0.0-0.4) X10*3/uL Baso # (Auto) 0.0 (0.0-0.2) X10*3/uL Abs Immat Gran (auto) 0.07 H (0.00-0.03) X10*3/uL Absolute Neuts (auto) 13.2 H (2.0-8.3) x10*3/uL Absolute Nucleated RBC 0.000 (0.0-0.012) X10*3/uL Nucleated RBC % (auto) 0.0 (0.0-0.2) /100WBC PT 12.5 (11.2-13.5) SEC INR 1.0 (0.9-1.1) Sodium 139 (135-145) mmol/L Potassium 3.3 D (3.3-5.1) mmol/L Chloride 110 H (96-108) mmol/L Carbon Dioxide 18 L (22-29) mmol/L Anion Gap 14 (12-20) BUN 14 (9-16) mg/dL Creatinine 1.24 (0.5-1.4) mg/dL Estim Creat Clear Calc 61.5 Estimated GFR 46 Random Glucose 132 H (60-115) mg/dL Calcium 9.5 (8.4-10.2) mg/dL Total Bilirubin 0.7 (0.0-1.0) mg/dL AST 19 (5-31) U/L ALT 19 (0-31) U/L Alkaline Phosphatase 96 (39-117) U/L Total Protein 7.7 (6.5-8.0) g/dL Albumin 4.4 (3.5-5.0) g/dL Radiology Impression Discussion of test interpretation with radiology: I have reviewed the radiologist's reading. Radiologist Impression: Distal colitis. Recommend exclusion of inflammatory bowel disease given the bilateral sacroiliitis which may represententeropathic spondyloarthropathy. Prescription Management I considered prescription management with: Pain Medication and Antibiotic Critical Care Time Critical Care Time Critical Care Time: Yes Total Critical Care Time: 32 Attestation: Time is exclusive of separately billable procedures. Time includes: direct patient care, patient reassessment, coordination of patient care, interpretation of data (laboratory data, pulse oximetry, arterial blood gases and chest xrays), review of patient's medical records, medical consultation and documentation of patient care. Procedures excluded from critical care time: central intravenous line placement and electrocardiography. Discharge Plan Discharge Clinical Impression: Bloody diarrhea, Colitis Additional Instructions: You were evaluated with the bloody diarrhea, and abdominal pain, cat scan revealed inflammation of the colon as discussed this inflammation is called colitis and can be due to either infection or inflammation, I did reach out to a automotive title clerk who recommended that we start you on antibiotics, and send off a stool panel, the school panel does not come back today if anything comes back positive he will get a phone call for antibiotics, in the meantime I would like you to avoid using anti-inflammatory medications such as Motrin, use antibiotics, I will prescribe loperamide as needed for diarrhea and antibiotics and a few doses of pain medications that will also help the pain and slow down your gut, otherwise use Tylenol 975 mg every 6 hours needed for pain, expect to see some continued rectal bleeding when you have a bowel movement, if you have significant hemorrhage outside of bowel movements and you have any other concerns please come back to the ER for re-evaluation and repeat blood work Prescriptions: New ciprofloxacin HCl 500 mg tablet 500 mg PO BID 10 Days Qty: 20 0RF loperamide 2 mg capsule 2 mg PO Q6H PRN (Reason: loose stool) Qty: 30 0RF Rx Instructions: 2mg after each loose BM max 16mg daily metronidazole 500 mg tablet 500 mg PO BID 10 Days Qty: 20 0RF oxycodone 5 mg tablet 5 mg PO Q6H PRN (Reason: pain) Qty: 10 0RF Rx Instructions: Partial Fill upon patient request. No Action clonidine HCl 0.1 mg tablet 0.1 mg PO TID PRN (Reason: anxiety) 90 Days Qty: 270 1RF albuterol sulfate 90 mcg/actuation HFA aerosol inhaler 2 puff PO Q4-6H PRN (Reason: shortness of breath or wheezing) Qty: 8.5 0RF omeprazole 20 mg capsule,delayed release(DR/EC) 20 mg PO DAILY Qty: 90 1RF cholecalciferol (vitamin D3) 25 mcg (1,000 unit) capsule 25 mcg PO DAILY Qty: 30 1RF folic acid 1 mg tablet 1 mg PO DAILY MDD 1mg Qty: 30 0RF acetaminophen [Tylenol Extra Strength] 500 mg tablet 500 mg PO Q6H PRN (Reason: pain) Qty: 30 0RF ascorbate calcium (vitamin C) 500 mg tablet 500 mg PO DAILY cyanocobalamin (vitamin B-12) 1,000 mcg capsule 1,000 mcg PO DAILY sennosides-docusate sodium [Senna-S] 8.6-50 mg tablet 2 tab-cap PO BEDTIME 30 Days Qty: 60 3RF ropinirole 0.25 mg tablet 0.25 mg PO BEDTIME Qty: 90 2RF riboflavin (vitamin B2) 400 mg tablet 400 mg PO QAM Qty: 30 6RF magnesium oxide 400 mg magnesium tablet 400 mg PO BEDTIME Qty: 30 6RF Zepbound 2.5 mg/0.5 mL pen injector 2.5 mg subcut QWEEK Qty: 2 2RF Rx Instructions: for 4 weeks topiramate 100 mg tablet 100 mg PO BEDTIME MDD 100mg Qty: 30 3RF Rx Instructions: take 1 tablet daily at bedtime for headaches. rizatriptan 10 mg tablet,disintegrating 10 mg PO Q2-4H MDD 20mg 30 Days Qty: 12 0RF Rx Instructions: take one 10mg tablet of rizatriptan for acute and preventive therapy in migraine control. If migraine does not abort in 2 hours you may take one more tablet. Do not take more than 2 tablets in 24 hours. Ubrelvy 50 mg tablet 50 mg PO DAILY MDD 50mg 60 Days Qty: 60 1RF diclofenac sodium [Voltaren Arthritis Pain] 1 % gel 4 g topical QID Qty: 100 2RF Rx Instructions: apply to single knee, ankle, foot; for foot includes sole/toes/top of foot lamotrigine 25 mg tablet 50 mg PO BID 90 Days Qty: 360 2RF Print Language: Canadian
[2025-04-07 07:49] LABS: Alanine Aminotransferase 19 U/L (0-31); Albumin Level 4.4 g/dL (3.5-5.0); Alkaline Phosphatase 96 U/L (39-117); Anion Gap 14 (12-20); Aspartate Amino Transferase 19 U/L (5-31); Blood Urea Nitrogen 14 mg/dL (9-16); Calcium 9.5 mg/dL (8.4-10.2); Carbon Dioxide 18 mmol/L (22-29); Chloride 110 mmol/L (96-108); Creatinine Clr Calc Pharmacy 61.5; Estimated Glomerular Filt Rate 46; Potassium 3.3 mmol/L (3.3-5.1); Sodium 139 mmol/L (135-145); Total Protein 7.7 g/dL (6.5-8.0)
[2025-04-07 07:57] VITALS: RESP 18
--- OUTSIDE RECORDS SUMMARY | 2025-04-07 08:12 | XMS_ITS | Continuity of Care Document ---
Author Organization [email or web address] [facility], [facility] Address [address] [place] [id number] Care Team Providers Care Second Language Tutor Name Role Phone HIM CCA OTHER PO, EMMAMARIUSZ Primary Care Provider [phone] Assessment Encounter Date Assessment Date Assessment LastModified by Organization Details LastModified Time 03/24/2025 03/24/2025 As noted, we were called to see this patient regarding concerns of Left knee pain. Evaluation in the field was performed by my automobile insurance claim examiner colleague, as noted above, I provided real-time direction and supervision for this visit. Patient is having pain on her left knee after a fall last night. She states that she did not hit her head or lose consciousness. Patient having severe amount of pain as per medic. He is called 911 as the patient will need imaging. Patient is agreeable to go to [place] emergency department. I've called in an expect. [...] RxNorm Not Available [facility] - production 08:30:14 [id number] bacitraci n medicatio n Not available Not available Not available 03/24/2025 1291 RxNorm Not Available [facility] 08:30:14 Medications Name Sig Start Date Stop [...] Vitals Date Recorded Respiratory rate Oxygen saturation Heart rate Systolic And Diastolic Provider Name and Address Organization Details Last Updated DateTime 03/24/2025 22 /min 100 % 102 /min 148/100 mm[Hg] Not Available [facility] 10:18:30 Social History None recorded. Functional Status None recorded. Mental Status None recorded. Family History Nothing Reported. Medical History No medical history recorded. Gynecological HistoryNo gynecological history recorded. Obstetrics History GPAL:G 0 P 0 0 0 0 Past Encounters Encounter ID Performer Location Encounter Start Date Encounter Closed Date Diagnosis/Indication Diagnosis SNOMED-CT Code Diagnosis ICD10 Code Diagnosis IMO Codes Diagnosis Note [id number] [facility] ED Medical [facility] [address] [place] [address] 03/24/2025 10:18:26 03/24/2025 13:58:59 Pain of knee region [id number] M25.562 [id number] Health Concerns Section Related Observation LastModified by Organization Detai ls LastModified Time None Recorded Concern Status LastModified by Organization Details LastModified Time None Recorded Payers Encounter Date Sequence Insurance Name Policy Number Policy Silva Covered Member ID Silva Member ID Guarantor Name 03/24/2025 1 [facility] - DOS ON OR AFTER 2022 - DUAL ELIGIBLE - ASSISTED OPTIONS AND ONE CARE (MEDICARE REPLACEMENT/ADV ANTAGE - HMO) Denita Nguyen [id number] Denita Nguyen Notes Date Note Type Note [...] PMH Reviewed at 03/24/2025 Allergies Reviewed at 03/24/2025 - : Pain Assessment: Level 10 out of 10 [...] .................. .................. .................. .................. .................. .................. ............... Neurology Stroke Physician Note From Todd Dupont: Dispatched to above [...] radial pulse, skin pink warm and dry. [facility] contacted, spoke with Dr. Mabry, advised of patient complaints and exam findings. [facility] agreed patient needs to be seen in the ER for imaging and further work up. Patient agrees with this plan. 911 contacted, [facility] responded. Verbal report given to [facility], took over patient care, will transport [facility]. SC8 clear. EOR. .................. .................. .................. .................. .................. .................. .................. ............... [facility] Consulted: Micah Mabry .................. .................. .................. .................. .................. .................. .................. ............... Disposition: Fulfilled Micah Mabry MD [address] [facility], [place], [address], [employer], [employer] 03/24/2025 13:29:53 OBGyn Episode No OBEpisode recorded.
--- OUTSIDE RECORDS SUMMARY | 2025-04-07 08:12 | XMS_ITS | Data Portability ---
Author Organization [employer] [facility], [facility] Address [address] [place] [id number] Care Team Providers Care Loan Collector Name Role Phone HIM CCA OTHER PO EMMAMARIUSZ Primary Care Provider Assessment Encounter Date Assessment Date Assessment LastModified by Organization Details LastModified Time 03/24/2025 03/24/2025 As noted, we were called to see this patient regarding concerns of Left knee pain. Evaluation in the field was performed by my cleaning laborer colleague, as noted above, I provided real-time direction and supervision for this visit. Patient is having pain on her left knee after a fall last night. She states that she did not hit her head or lose consciousness. Patient having severe amount of pain as per medic. He is called 911 as the patient will need imaging. Patient is agreeable to go to [facility] emergency department. I've called in an expect. [...] Not available 03/24/2025 [id number] RxNorm Not Available tu.nr 08:30:14 Medications Name Sig Start Date Stop [...] % 102 /min 148/100 mm[Hg] Not Available tu.nr 5 10:18:30 Social History None recorded. Functional Status None recorded. Mental Status None recorded. Family History Nothing Reported. Medical History No medical history recorded. Gynecological HistoryNo gynecological history recorded. Obstetrics History GPAL:G 0 P 0 0 0 0 Past Encounters Encounter ID Performer Location Encounter Start Date Encounter Closed Date Diagnosis/Indication Diagnosis SNOMED-CT Code Diagnosis ICD10 Code Diagnosis IMO Codes Diagnosis Note [id number] Micah Mabry MD [facility] ED Medical [facility] [address] [place] [address] 03/24/2025 10:18:26 03/24/2025 13:58:59 Pain of knee region [id number] M25.562 [id number] Health Concerns Section Related Observation LastModified by Organization Detai ls LastModified Time None Recorded Concern Status LastModified by Organization Details LastModified Time None Recorded Advance Directives Directive None Recorded Payers Insurance Date Sequence Insurance Name Policy Number Policy Silva Covered Member ID Silva Member ID Guarantor Name 03/26/2025 1 [facility] - DOS ON OR AFTER 2022 - DUAL ELIGIBLE - [facility] OPTIONS AND ONE CARE (MEDICARE REPLACEMENT/ADV ANTAGE - HMO) Denita Nguyen [id number] Denita Nguyen Notes Date Note Type Note [...] Kidney Disease PMH Reviewed at 03/24/2025 - 30 Allergies Reviewed at 03/24/2025:30 Pain Assessment: Level [...] .................. .................. .................. .................. .................. .................. ............... Subcontract Administrator Note From Todd Dupont: Dispatched to above [...] Patient agrees with this plan. 911 contacted, [facility] responded. Verbal report given to [facility], took over patient care, will transport [facility]. SC8 clear. EOR. .................. .................. .................. .................. .................. .................. .................. ............... [facility] [place] Consulted: Micah Mabry .................. .................. .................. .................. .................. .................. .................. ............... Disposition: Fulfilled Micah Mabry MD [address] [facility], [place], [address], [place] [employer] 03/24/2025 13:29:53 OBGyn Episode No OBEpisode recorded.
[2025-04-07] MEDS: iohexoL 350 MG/ML 100 ML INFUS..BTL IV (08:58)
[2025-04-07 10:32] VITALS: BP 138/79; PULSE 72; RESP 16; TEMP 36.8; O2SAT 97
[2025-04-07] MEDS: oxyCODONE HCl Immed Release 5 MG TABLET PO (10:48)
[2025-04-07 11:12] VITALS: BP 138/79; PULSE 72; RESP 16; TEMP 36.8; O2SAT 97
[2025-04-07 12:42] LABS: E. coli EAEC Not Detected (Not Detect.); E. coli EPEC Not Detected (Not Detect.); E. coli ETEC Not Detected (Not Detect.); E. coli STEC Not Detected (Not Detect.); Shigella sp./EIEC Not Detected (Not Detect.)
[2025-04-07 13:02] LABS: CDiff Gene PCR NEGATIVE (Negative)
== END 2025-04-07 11:54 | disposition home or self-care (01) ==
PROVIDERS: Emergency Provider Emergency Medicine; PCP Internal Medicine
DX: K52.9 Noninfective gastroenteritis and colitis, unspecified (principal)
CPT/HCPCS: 36415; 74177; 80053; 85025; 85610; 87493; 87507; 93005; 96374; 99285; J2270; Q9967

== ENCOUNTER → 2025-04-07 07:27 | Outpatient (BNV) | payer OTHER, SELFPAY | PROVIDERS: Emergency Provider Emergency Medicine; PCP Internal Medicine; Visit Provider Internal Medicine Cardiovascular Disease | DX: R42 Dizziness and giddiness (principal) | CPT/HCPCS: 93010 ==

== ENCOUNTER → 2025-04-07 07:50 | Outpatient (BNV) | payer OTHER, SELFPAY | PROVIDERS: Emergency Provider Emergency Medicine; PCP Internal Medicine; Visit Provider Radiology Diagnostic Radiology | DX: K52.9 Noninfective gastroenteritis and colitis, unspecified (principal) | CPT/HCPCS: 74177 ==

== ENCOUNTER 2025-04-21 09:44 | Outpatient (AMB) | payer OTHER, SELFPAY ==
--- NOTE | 2025-04-21 09:49 | MHC.OFFVIS ---
Vital Signs 04/21/25 09:50 Height 5 ft 2 in Weight 232 lb BMI 42.4 BP 118/73 Blood Pressure Location Lt brachial Position Sitting Pulse 91 Intake Visit Reasons: Screening Intake Note: Patient new consult for 1st pre Colonoscopy screening. Patient cc: acid reflux, and constipation. Patient went [facility] [place] [facility] due rectal bleeding. Chef Instructor Required: No Accompanied by: Self / Same As Patient Allergies bacitracin (BACITRACIN) Allergy (Mild, Verified 04/21/25 09:48) RASH Medication List - Last Reconciled 04/21/25 by Gisele Tapia CNP acetaminophen (Tylenol Extra Strength) 500 mg PO Q6H PRN albuterol sulfate 90 mcg/actuation 2 puffs PO Q4-6H PRN ascorbate calcium (vitamin C) 500 mg PO DAILY cholecalciferol (vitamin D3) 25 mcg PO DAILY clonidine HCl 0.1 mg PO TID PRN 90 days cyanocobalamin (vitamin B-12) 1,000 mcg PO DAILY diclofenac sodium 1% (Voltaren Arthritis Pain) 4 grams topical QID folic acid 1 mg PO DAILY MDD 1mg lamotrigine 50 mg (2 x 25 mg) PO BID 90 days loperamide 2 mg PO Q6H PRN magnesium oxide 400 mg PO BEDTIME omeprazole 20 mg PO DAILY riboflavin (vitamin B2) 400 mg PO QAM rizatriptan 10 mg PO Q2-4H 30 days MDD 20mg ropinirole 0.25 mg PO BEDTIME tirzepatide (weight loss) (Zepbound) 2.5 mg (0.5 mL) subcut QWEEK topiramate 100 mg PO BEDTIME MDD 100mg ubrogepant (Ubrelvy) 50 mg PO DAILY 2 months MDD 50mg HPI HPI Screening: Details: Patient is a 49-year-old female with PMH of obesity, fibromyalgia, asthma, bipolar, PTSD. Referred by PCP for pre colonoscopy screening. She was seen in the emergency department on April 07 for rectal bleeding and right lower quadrant pain. A CT scan at that time showed distal colitis, colonic wall thickening, and pericolonic fat stranding at the splenic flexure, with no perforation, abscess, or obstruction. Inflammatory bowel disease could not be excluded. Labs from the ER, including H&H, renal function, and LFTs, were unremarkable. She was treated with a course of ciprofloxacin and metronidazole, which she has completed. The patient reports a history of constipation for over 10 years, with bowel movements sometimes occurring only once a week. The constipation is not typically associated with pain, nausea, or vomiting, and she manages it with diet, such as eating bananas, and occasional use of stool softeners. She has also experienced heartburn for the past 5-6 years, which she attributes to her weight. This is managed effectively with omeprazole 20 mg; without it, she experiences regurgitation and a choking sensation. Her past medical history is significant for fibromyalgia and migraines, for which she takes topiramate and ubrogepant. She avoids ibuprofen due to its effect on her kidney levels. She is not currently taking narcotics. Her mother has Crohn's disease, and her maternal uncle had colon cancer twice. Patient denies: fever/chills, n/v, appetite changes, ,dysphasia, unintentional wt loss, ab pain or melena/hematochezia. Social hx: -denies ETOH use -denies recreational drug use -non-smoker - family hx as below -denies personal hx of CA -denies significant cardiopulmonary history -tolerated anesthesia in the past without difficulty. [facility] Medical History COVID-19 COVID-19 virus infection Restless legs syndrome (RLS) Migraine Hypersomnia Snoring Abnormal CT of brain Chronic migraine with aura PTSD (post-traumatic stress disorder) Bipolar disorder HPV (human papilloma virus) infection Restless leg syndrome Fibromyalgia Vitamin D deficiency Obesity Asthma Surgical History History of dilatation and curettage History of toe surgery Family History Father Diabetes CVD (cardiovascular disease) Cancer Hypertension Slow to wake up after anesthesia Mother Diabetes CVD (cardiovascular disease) Cancer Crohn disease Maternal Grandmother Lung cancer Maternal Grandfather Gastric cancer Paternal Grandmother Ovarian cancer Paternal Grandfather Esophageal cancer Maternal Aunt Breast cancer Maternal Uncle Colon cancer Sister Mental health disorder Bipolar 1 disorder Slow to wake up after anesthesia Other Arthritis Social History Household Members: Children Housing: House Are you a primary patient care nursing assistant to a significant other at home: Yes (children) Do you presently have visiting nurse or other home services: No Alcohol intake: never Patient Tobacco Use Status: Former Tobacco user Tobacco use type: Cigarette Years Smoked: 2004 stopped e-Cigarette/Vaping Use: Never Used Second Hand Smoke Exposure: Yes service: No Current occupational status: employed 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 Sexual orientation: Straight/Heterosexual Gender identity: Female Cognitive needs: No Hearing needs: No Vision needs: Yes (Glasses) Female Reproductive History Menstrual Age of Menarche: 13 Review of Systems Const Reports as per HPI ENT Reports as per HPI Card Reports as per HPI Resp Reports as per HPI GI Reports as per HPI Reports as per HPI Physical Exam Vital Signs: Last Vital Signs Pulse 91 04/21/25 09:50 BP 118/73 04/21/25 09:50 BMI result Body Mass Index 42.4 Const General: healthy appearing, no acute distress and well developed Nutritional Appearance: average body habitus Orientation/consciousness: patient oriented x3 HEENT Head: Yes normal to inspection, Yes normocephalic and Yes atraumatic Face and sinus: Yes normal facial exam Eyes General: appearance normal, both eyes and all related structures Neck Neck: Yes normal visual inspection Resp Effort & Inspection: normal respiratory effort, able to speak in complete sentences, no tracheal deviation and symmetric chest movement Cardio Jugular venous distension: no JVD GI Inspection: Yes normal to inspection, No distended, Yes obesity and Yes striae Palpation (GI): Soft to palpation, not firm, Tenderness to palpation present (GI) in the LLQ and in the RLQ and No hepatosplenomegaly present Auscultation: normal bowel sounds Neuro General: patient oriented x3 Gait exam (Neuro): Normal gait present Psych Appearance: grossly normal Mental Status: mental status grossly normal Speech and movement: Normal speech and movement present Affect: normal affect Attitude: cooperative Thought process: Normal thought process present Thought content: Normal thought content present Insight: Good insight present (Psych) Judgement: Good judgement present (Psych) Assessment & Plan Assessment & Plan (1) Colon cancer screening: Code(s): Z12.11 - Encounter for screening for malignant neoplasm of colon Category: Medical Plan: At age 49, the patient is at the appropriate age for screening. - She has a second-degree relative (maternal uncle) with a history of colon cancer. - Will proceed with a screening colonoscopy. Medications: -prescriptions for laxative tablets and MiraLax sent to pharmacy; instructions for Gatorade purchase and clear liquid diet given. Patient educated on scheduling process, procedure preparation, including avoiding certain foods and ensuring clear liquid intake Advised on necessity for ride post-procedure due to sedation. (2) GERD (gastroesophageal reflux disease): Code(s): K21.9 - Gastro-esophageal reflux disease without esophagitis Category: Medical Qualifiers: Esophagitis presence: without esophagitis Qualified Code(s): K21.9 - Gastro-esophageal reflux disease without esophagitis Plan: The patient has a long-standing history of reflux, controlled with medication. - Plan to perform an upper endoscopy (EGD) at the same time as the colonoscopy to evaluate the upper GI tract and rule out an upper source for her bleeding. - She will continue taking her current reflux medication. (3) Blood in stool: Code(s): K92.1 - Melena Category: Medical Plan: Recent CT findings of colitis and an episode of rectal bleeding warrant further investigation to rule out inflammatory bowel disease (IBD), despite the atypical presentation of constipation. - Plan to order blood tests to check for inflammatory markers and repeat a CBC to ensure hemoglobin and hematocrit have remained stable. - Will order stool studies to check for inflammation. - Will proceed with a colonoscopy for diagnostic evaluation and age-appropriate screening. (4) Constipation: Code(s): K59.00 - Constipation, unspecified Category: Medical Qualifiers: Constipation type: chronic idiopathic constipation Qualified Code(s): K59.04 - Chronic idiopathic constipation Plan: The patient has chronic constipation, but is currently experiencing loose stools, which may be a result of her recent antibiotic course or her new magnesium oxide supplement. - Advised the patient to be mindful of her stool consistency over the next few weeks now that she is off antibiotics. - Instructed to titrate her magnesium oxide dose, such as taking it every other day, to find a balance between constipation and loose stools. Plan Follow-up after endoscopy or sooner as needed Time: I spent a total of 32 minutes on the date of encounter which includes: Preparing to see the patient (reviewed previous documentation, test results and medical history) Performing a medically appropriate exam and/or evaluation Ordering medications, tests, and procedures Documenting clinical information in the health record Orders: Orders Calprotectin, Fecal Today K92.1 - Melena C Reactive Protein Today K92.1 - Melena Complete Blood Count Auto Diff Today K92.1 - Melena Referrals GI Procedure Notification K21.9 - Gastro-esophageal reflux disease without esophagitis, K92.1 - Melena, Z12.11 - Encounter for screening for malignant neoplasm of colon Medications: New bisacodyl take four tablets once day of colonoscopy prep 20 mg (4 x 5 mg) PO ONCE 4 tabs 0RF polyethylene glycol 3350 (Miralax) per colonoscopy prep instructions 238 grams PO ONCE 238 grams 0RF Coding Level of Care Code New Pt New Pt Level 3 (54318) Patient Type New Diagnoses Colon cancer screening Z12.11 Gastroesophageal reflux disease without esophagitis K21.9 Esophagitis presence: without esophagitis Blood in stool K92.1 Chronic idiopathic constipation K59.04 Constipation type: chronic idiopathic constipation
[2025-04-21 09:50] VITALS: BP 118/73; PULSE 91; BMI 42.4
== END 2025-04-21 10:52 | disposition home or self-care (01) ==
LOC: HO.HGI 09:45
PROVIDERS: PCP Internal Medicine; Visit Provider Nurse Practitioner Family
DX: Z01.818 Encounter for other preprocedural examination (principal); Z12.11 Encounter for screening for malignant neoplasm of colon; K92.1 Melena; K59.04 Chronic idiopathic constipation; K21.9 Gastro-esophageal reflux disease without esophagitis
CPT/HCPCS: 99024

== ENCOUNTER 2025-04-21 09:44 | Outpatient (REF) | payer OTHER, SELFPAY ==
[2025-04-21 11:02] LABS: MANUAL DIFF FLAG NO
[2025-04-21 11:16] LABS: Hematocrit 46.6 % (37.0-47.0); Hemoglobin 15.2 g/dl (12.0-16.0); Imm Gran Abs Auto 0.02 X10*3/uL (0.00-0.03); Imm Gran Pct Auto 0.3 % (0.0-0.4); Lymphocytes Absolute Auto 2.0 X10*3/uL (1.2-4.9); Mean Corpuscular HGB Conc 32.6 g/dl (31.0-35.0); Mean Corpuscular Hemoglobin 30.8 pg (27.0-33.0); Mean Corpuscular Volume 94.5 fL (80.0-98.0); NRBC Abs Auto 0.000 X10*3/uL (0.0-0.012); NRBC Pct Auto 0.0 /100WBC (0.0-0.2); Platelet Count 327 X10*3/uL (160-400); Red Blood Count 4.93 X10*6/uL (4.20-5.50); White Blood Count 7.8 X10*3/uL (4.8-10.8)
== END 2025-04-21 09:45 | disposition home or self-care (01) ==
LOC: HO.LAB 09:44
PROVIDERS: PCP Internal Medicine; Visit Provider Nurse Practitioner Family
DX: K21.9 Gastro-esophageal reflux disease without esophagitis (principal); K92.1 Melena; K59.04 Chronic idiopathic constipation
CPT/HCPCS: 36415; 85025; 86140; 99212

== ENCOUNTER 2025-04-25 08:08 | Outpatient (AMB) | payer OTHER, SELFPAY ==
--- NOTE | 2025-04-25 08:33 | A.OFFVIS_ITS ---
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 Allergies bacitracin (BACITRACIN) Allergy (Mild, Verified 04/25/25 08:33) RASH Medication List - Last Reconciled 04/25/25 by Tramaine Talbot MD albuterol sulfate 90 mcg/actuation 2 puffs PO Q4-6H PRN ascorbate calcium (vitamin C) 500 mg PO DAILY bisacodyl 20 mg (4 x 5 mg) PO ONCE cholecalciferol (vitamin D3) 25 mcg PO DAILY clonidine HCl 0.1 mg PO TID PRN 90 days cyanocobalamin (vitamin B-12) 1,000 mcg PO DAILY diclofenac sodium 1% (Voltaren Arthritis Pain) 4 grams topical QID folic acid 1 mg PO DAILY MDD 1mg lamotrigine 50 mg (2 x 25 mg) PO BID 90 days magnesium oxide 400 mg PO BEDTIME omeprazole 20 mg PO DAILY polyethylene glycol 3350 (Miralax) 238 grams PO ONCE riboflavin (vitamin B2) 400 mg PO QAM rizatriptan 10 mg PO Q2-4H 30 days MDD 20mg ropinirole 0.25 mg PO BEDTIME topiramate 100 mg PO BEDTIME MDD 100mg ubrogepant (Ubrelvy) 50 mg PO DAILY 2 months MDD 50mg HPI HPI 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: Details: Start time: 8.30am, End time: 9.02am ?I spent 27 minutes speaking with the patient on the phone plus an additional 5 minutes reviewing and updating records for a total of 32 minutes HPI Comments Details: Previous weight loss efforts: self diet and exercise Wakes up: 6.30am, Sleeps: 10pm Breakfast: skips Lunch: 12pm (sandwich or salad) Dinner: 5pm (rice, beans, meat) Snacks: none Exercise: none Beverages: Coffee: none, Tea: none, Soda: regular Sprite and Gingerale: 2 cans/day, Juice: none, ETOH: none PFSH Medical History (Updated 04/21/25 @ 10:51 by Gisele Tapia CNP) Blood in stool COVID-19 COVID-19 virus infection Restless legs syndrome (RLS) Migraine Hypersomnia Snoring Abnormal CT of brain Chronic migraine with aura PTSD (post-traumatic stress disorder) Bipolar disorder HPV (human papilloma virus) infection Restless leg syndrome Fibromyalgia Vitamin D deficiency Obesity Asthma Surgical History History of dilatation and curettage History of toe surgery Family History (Updated 04/21/25 @ 10:27 by Gisele Tapia CNP) Father Diabetes CVD (cardiovascular disease) Cancer Hypertension Slow to wake up after anesthesia Mother Diabetes CVD (cardiovascular disease) Cancer Crohn disease Maternal Grandmother Lung cancer Maternal Grandfather Gastric cancer Paternal Grandmother Ovarian cancer Paternal Grandfather Esophageal cancer Maternal Aunt Breast cancer Maternal Uncle Colon cancer Sister Mental health disorder Bipolar 1 disorder Slow to wake up after anesthesia Other Arthritis Social History Household Members: Children Housing: House Are you a primary director of health care marketing to a significant other at home: Yes (children) Do you presently have visiting nurse or other home services: No Alcohol intake: never Patient Tobacco Use Status: Former Tobacco user Tobacco use type: Cigarette Years Smoked: 2004 stopped e-Cigarette/Vaping Use: Never Used Second Hand Smoke Exposure: Yes service: No Current occupational status: employed 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 Sexual orientation: Straight/Heterosexual Gender identity: Female Cognitive needs: No Hearing needs: No Vision needs: Yes (Glasses) Female Reproductive History Menstrual Age of Menarche: 13 Telehealth Telehealth Telehealth Platform: Telephone Location of provider rendering services: practice address Location of patient: address on file Patient Identification confirmed using: Name, : Yes Telehealth method: voice only Patient verbally consented to treatment: Yes Patient verbally consented to billing insurance company: Yes Patient informed of any privacy concerns related to visit: Yes Minutes spent on Phone/Video with Pt.: 32 Assessment & Plan Assessment & Plan (1) Morbid obesity: Code(s): E66.01 - Morbid (severe) obesity due to excess calories Category: Medical Plan: ?1. As we discussed, based on your present BMI you are approximately 115lbs overweight. In my opinion, for any weight loss strategy to be successful should have a high probability to help you lose at least 100lbs out of 115lbs of the extra weight you carry. ?We discussed in detail the available therapeutic options: ?1) our lifestyle intervention program that has an average weight loss of 10% in 3 months.?Some patients continue it for longer and have lost over 50lbs but this is not common. Our lifestyle program can be provided by me. I will provide you with a link to use the adamaris if you choose to do so. We use protein shakes and protein bars to replace some of the meals of the day and cover your appetite better. We will decide together the exact combination ?2) Weight loss medications: these can be used in conjunction with our lifestyle program or you may choose to use them without following a lifestyle program from my program but your own. One option is the Phentermine pill which is affordable as self pay option. It is well tolerated and most common side effects include blood pressure elevation, dry mouth, difficulty sleeping and heart palpitations. However, it can raise the blood pressure and it may not be the best option for you since you have high blood pressure already. It?s a temporary solution however and most patients tend to put the weight back once the medication is stopped. 3) Your insurance does not cover the new weight loss shots unless you have diabetes. We also discussed that you can self pay for the weight loss injections and the cost is $249 for the first month and $499 for any other month thereafter. These payments go to the drug company directly and not to us. As we discussed, this is not a mattress packer solution, as most patients put all the weight back once they are off the medication. There is also an option to get generic versions from compound pharmacies at cheaper rates but their efficacy and how they are manufactured is not that clear. ?4) We also discussed about the lap sleeve gastrectomy. In my opinion this is the best option to solve your problem based on your situation and at the same time repair the diaphragmatic hernia you have. This will address the reflux as well as the frequent runs to the bathrooom you experience. ??I emphasized the importance of close follow-up, adherence to instructions and good communication. The surgery does not replace the need to change your lifestlyle which is the cause of the obesity problem. The surgery provides the motivation to try again to change your lifestyle, it reduces the appetite and make the transition to a better lifestyle easier and doubles the amount of weight you would lose compared to doing the lifestyle change without the surgery. You will need to be on a liquid diet with protein shakes for 2 weeks before surgery to maximize weight loss and boost your nutritional status to recover better from surgery and also for the first two weeks after surgery to let the stomach heal before we introduce other foods. After the first 2 weeks we will introduce protein bars and soft foods like scrambled eggs, cottage cheese and yogurt and after the 6th week will introduce meat, fish and cooked vegetables in small amounts. Over time you should be able to eat everything in small amounts. Side effects like nausea, vomiting, heartburn or abdominal pain are not common in the practice unless you are not following in the practice. This operation requires lifetime commitment to following in our practice and communication with me. You will much less weight and experience side effects if you don?t communicate or not following in the practice. Complications are rare and in our practice is about 1/10 of the national average. 5) Very Important: We do extensive research in this practice. In very recent research we did, we found that patients who did the lifestyle program without medications followed by weight loss surgery, lost twice as much as they would lose if they used the shots for the same period of time and with the two groups being completely matched in terms of demographics and starting weights. Another research study we did found that when we compared patients who did our lifestyle program without or with the weight loss shots, they lost the same weight but they did not lose any muscle mass. The patients who used the shots lost about 3% of their muscle mass in 3 months which translates to 5-15lbs of actual muscle mass depending on each patient's initial weight. That's not good because it makes you frail and weak and reduces your metabolism. In another research study we did, we found that losing 10-20% of your initial weight before the weight loss surgery, followed by surgery at the lowest possible weight, gives you a significant boost in long-term weight loss 6 years or more after surgery, that makes a difference in the long-term success. Preoperative weight loss is not commonly used by many practices especially at this magnitude, but it is our philosophy and makes a huge difference. Please let me know what you decide.
[2025-04-25 08:43] VITALS: BMI 42.8
== END 2025-04-25 09:03 | disposition home or self-care (01) ==
LOC: HO.HBS 08:08
PROVIDERS: PCP Internal Medicine; Visit Provider Surgery
DX: E66.01 Morbid (severe) obesity due to excess calories (principal); Z68.42 Body mass index [BMI] 45.0-49.9, adult
CPT/HCPCS: 99203

== ENCOUNTER → 2025-05-08 11:16 | Outpatient (BNV) | payer OTHER, SELFPAY | PROVIDERS: PCP Internal Medicine; Visit Provider Radiology Diagnostic Radiology | DX: M23.222 Derangement of posterior horn of medial meniscus due to old tear or injury, left knee (principal); M71.22 Synovial cyst of popliteal space [Baker], left knee; M17.12 Unilateral primary osteoarthritis, left knee | CPT/HCPCS: 73721 ==

== ENCOUNTER 2025-05-08 11:24 | Outpatient (REF) | payer OTHER, SELFPAY ==
--- NOTE | ~2025-05-08 | MR_ITS ---
EXAMINATION: MR KNEE WITHOUT IV CONTRAST LEFT HISTORY: M17.12 - Unilateral primary osteoarthritis, left knee COMPARISON: Correlation is made with plain films of the left knee dated 03/28/2025 at 03/24/2025. TECHNIQUE: Coronal T1 and fat-suppressed proton density, sagittal proton density and fat-suppressed proton density, and axial fat suppressed T2 weighted MR images of the left knee were obtained. FINDINGS: Bone marrow: There is bone marrow edema and cystic change involving the posterior aspect of the lateral femoral condyle. Joint effusion: There is no significant joint effusion. Tran's cyst: There is a small Tran's cyst. Articular cartilage: There is moderate osteoarthritis of the medial compartment with cartilage loss and osteophyte formation. There is mild thinning of the patellar cartilage. Muscles/soft tissues: The visualized muscles demonstrate normal signal intensity. Anterior cruciate ligament: Intact Posterior cruciate ligament: Intact Medial collateral ligament: Intact Lateral collateral ligament: Intact Medial meniscus: The posterior horn of the medial meniscus is diminutive in size and irregular in contour, consistent with a tear which is likely degenerative in nature. The anterior horn of the medial meniscus is intact. Lateral meniscus: At the junction of the body and posterior horn of the lateral meniscus, there is slight irregularity at the inferior joint surface, suspicious for a small tear. The anterior horn is intact. Flexor mechanism: The popliteus, gastrocnemius, and hamstring tendons are intact. Quadriceps tendon: Intact Patellar tendon: Intact Patellar retinacula: Intact MR/MR knee LT wo con IMPRESSION: 1. Moderate osteoarthritis of the medial compartment. Mild osteoarthritis of the patellofemoral compartment. 2. Bone marrow edema and cystic change involving the posterior aspect of the lateral femoral condyle. Small Tran's cyst. 3. Tear of the posterior horn of the medial meniscus, which is likely degenerative in nature. 4. Probable small tear involving the junction of the body and posterior horn of the lateral meniscus. Electronically signed by: Christian Parker MD 05/09/2025 09:11 AM [facility]
--- OUTSIDE RECORDS SUMMARY | 2025-05-08 11:33 | XMS_ITS | Continuity of Care Document ---
Author Organization [employer] [facility], [facility] Address [address] [place] [phone] Care Team Providers Care Data Clerk Name Role Phone HIM CCA OTHER PO EMMAMARIUSZ Primary Care Provider [phone] Assessment Encounter Date Assessment Date Assessment LastModified by Organization Details LastModified Time 03/24/2025 03/24/2025 As noted, we were called to see this patient regarding concerns of Left knee pain. Evaluation in the field was performed by my press assistant colleague, as noted above, I provided real-time direction and supervision for this visit. Patient is having pain on her left knee after a fall last night. She states that she did not hit her head or lose consciousness. Patient having severe amount of pain as per medic. He is called 911 as the patient will need imaging. Patient is agreeable to go to [place] emergency department. I've called in an expect. [...] RxNorm Not Available [facility] - production 08:30:14 [id number] bacitraci n medicatio n Not available Not available Not available 03/24/2025 1291 RxNorm Not Available [facility] 08:30:14 Medications Name Sig Start Date Stop [...] % 102 /min 148/100 mm[Hg] Not Available [facility] 10:18:30 Social History None recorded. Functional Status None recorded. Mental Status None recorded. Family History Nothing Reported. Medical History No medical history recorded. Gynecological HistoryNo gynecological history recorded. Obstetrics History GPAL:G 0 P 0 0 0 0 Past Encounters Encounter ID Performer Location Encounter Start Date Encounter Closed Date Diagnosis/Indication Diagnosis SNOMED-CT Code Diagnosis ICD10 Code Diagnosis IMO Codes Diagnosis Note [id number] Micah Mabry MD [facility] [place] ED Medical [facility] [address] [place] [address] 03/24/2025 10:18:26 03/24/2025 13:58:59 Pain of knee region 0527302867 M25.562 [id number] Health Concerns Section Related Observation LastModified by Organization Detai ls LastModified Time None Recorded Concern Status LastModified by Organization Details LastModified Time None Recorded Payers Encounter Date Sequence Insurance Name Policy Number Policy Silva Covered Member ID Silva Member ID Guarantor Name 03/24/2025 1 [facility] - DOS ON OR AFTER 2022 - DUAL ELIGIBLE - [facility] OPTIONS AND ONE CARE (MEDICARE REPLACEMENT/ADV ANTAGE - HMO) Denita Nguyen [id number] Denita Nguyen Notes Date Note Type Note [...] .................. .................. .................. .................. .................. .................. ............... Freight Coordinator Note From Todd Dupont: Dispatched to above [...] radial pulse, skin pink warm and dry. [facility] contacted, spoke with Dr. Mabry, advised of patient complaints and exam findings. [facility] agreed patient needs to be seen in the ER for imaging and further work up. Patient agrees with this plan. 911 contacted, [facility] responded. Verbal report given to [place] [facility], took over patient care, will transport [facility]. SC8 clear. EOR. .................. .................. .................. .................. .................. .................. .................. ............... [facility] Consulted: Micah Mabry .................. .................. .................. .................. .................. .................. .................. ............... Disposition: Fulfilled Micah Mabry MD [address] [facility], [place], [address], [employer], [facility] 03/24/2025 13:29:53 OBGyn Episode No OBEpisode recorded.
--- OUTSIDE RECORDS SUMMARY | 2025-05-08 11:33 | XMS_ITS | Data Portability ---
Author Organization [employer] [facility] Address [address] [place] [phone] Care Team Providers Care Coke Wheeler Name Role Phone HIM CCA OTHER PO EMMAMARIUSZ Primary Care Provider Assessment Encounter Date Assessment Date Assessment LastModified by Organization Details LastModified Time 03/24/2025 03/24/2025 As noted, we were called to see this patient regarding concerns of Left knee pain. Evaluation in the field was performed by my coding compliance specialist colleague, as noted above, I provided real-time direction and supervision for this visit. Patient is having pain on her left knee after a fall last night. She states that she did not hit her head or lose consciousness. Patient having severe amount of pain as per medic. He is called 911 as the patient will need imaging. Patient is agreeable to go to [place] emergency department. I've called in an expect. [...] Not available 03/24/2025 1291 RxNorm Not Available [employer] 08:30:14 Medications Name Sig Start Date Stop [...] % 102 /min 148/100 mm[Hg] Not Available [employer] 5 10:18:30 Social History None recorded. Functional Status None recorded. Mental Status None recorded. Family History Nothing Reported. Medical History No medical history recorded. Gynecological HistoryNo gynecological history recorded. Obstetrics History GPAL:G 0 P 0 0 0 0 Past Encounters Encounter ID Performer Location Encounter Start Date Encounter Closed Date Diagnosis/Indication Diagnosis SNOMED-CT Code Diagnosis ICD10 Code Diagnosis IMO Codes Diagnosis Note [id number] Micah Mabry MD [facility] ED Medical [facility] [address] [place] [address] 03/24/2025 10:18:26 03/24/2025 13:58:59 Pain of knee region [id number] M25.562 [id number] Health Concerns Section Related Observation LastModified by Organization Detai ls LastModified Time None Recorded Concern Status LastModified by Organization Details LastModified Time None Recorded Advance Directives Directive None Recorded Payers Insurance Date Sequence Insurance Name Policy Number Policy Silva Covered Member ID Silva Member ID Guarantor Name 03/26/2025 1 [facility] - DOS ON OR AFTER 2022 - DUAL ELIGIBLE - [facility] OPTIONS AND ONE CARE (MEDICARE REPLACEMENT/ADV ANTAGE - HMO) Denita Nguyen [id number] Denita Nguyen Notes Date Note Type Note [...] .................. .................. .................. .................. .................. .................. ............... Air Defense Specialist Note From Todd Dupont: Dispatched to above [...] radial pulse, skin pink warm and dry. [facility] contacted, spoke with Dr. Mabry, advised of patient complaints and exam findings. [facility] agreed patient needs to be seen in the ER for imaging and further work up. Patient agrees with this plan. 911 contacted, [facility] responded. Verbal report given to [place] [facility], took over patient care, will transport [facility]. SC8 clear. EOR. .................. .................. .................. .................. .................. .................. .................. ............... [facility] Consulted: Micah Mabry .................. .................. .................. .................. .................. .................. .................. ............... Disposition: Fulfilled Micah Mabry MD [address] [facility],[address], [place], [address], [employer], [employer] 03/24/2025 13:29:53 OBGyn Episode No OBEpisode recorded.
== END 2025-05-08 11:25 | disposition home or self-care (01) ==
LOC: HO.MRI 11:24
PROVIDERS: PCP Internal Medicine; Visit Provider Physician Assistant
DX: M17.12 Unilateral primary osteoarthritis, left knee (principal)
CPT/HCPCS: 73721

== ENCOUNTER 2025-05-11 09:42 | Outpatient (AMB) | payer OTHER, SELFPAY ==
[2025-05-11 09:44] VITALS: BP 104/72; PULSE 87; O2SAT 97; BMI 42.2
--- NOTE | 2025-05-11 09:44 | A.OFFPC_ITS ---
Vital Signs 05/11/25 09:44 Height 5 ft 2 in Weight 231 lb BMI 42.2 BP 104/72 Blood Pressure Location Lt brachial Position Sitting Pulse 87 Pulse Source Pulse Oximeter Pulse Oximetry (%) 97 Oxygen Delivery Method Room Air Intake Visit Reasons: obesity Allergies bacitracin (BACITRACIN) Allergy (Mild, Verified 05/11/25 09:44) RASH Tobacco use date assessed: 01/19/25 Dental Screening Dental Screen Date: 07/19/24 HPI HPI Comments History of Present Illness Details History of Present Illness The patient is a 49-year-old female presenting for a follow-up visit for man agement of multiple chronic conditions. Her past medical history is significant for morbid obesity, asthma, and generalized anxiety disorder. She reports left knee pain that began after she started walking more frequently and was exacerbated by a twisting injury while avoiding her cat. She describes the pain as a stabbing sensation that interferes with her sleep. A left knee MRI from April 30 showed moderate osteoarthritis, bone marrow edema, a small Tran's cyst, a likely degenerative tear of the posterior horn of the medial meniscus, and a small tear of the posterior horn of the lateral meniscus. She has been seen by orthopedics, received a cortisone shot, and has a follow-up appointment scheduled for May 16. The patient also has a history of blood in the stool. A CT scan showed colitis, and she was referred to gastroenterology for a colonoscopy, but she has not yet been contacted for scheduling. Recent lab work from April 21 showed a normal blood count with no anemia. Labs from an emergency room visit in March revealed a low potassium level, a creatinine of 1.24, and a non-fasting blood sugar of 132. Her last cholesterol test in January showed an LDL of 120, and she has a history of low vitamin D. For weight management, she follows with a program via telehealth and has made dietary changes. She had a negative experience with a provider who recommended against walking and pushed for bariatric surgery instead of approving weight loss injections, an approach she declined. Her weight has fluctuated, with a recent weight of 231 lbs, down from 240 lbs but up from 228 lbs. Regarding health maintenance, her mammogram is up to date, but she has not had her influenza vaccine for the current season. Her tetanus and pneumonia vaccinations are current. A brain MRI in February under neurology was negative. Health Maintenance Recommended the patient receive the influenza vaccine, as she has not had it for the current season. Social History - Transportation: The patient does not o wn a car and relies on walking and public transportation. - Activity Level: Reports doing a lot of walking due to her transportation situation, despite having knee pain. - Nutrition: Reports consuming spinach a nd avocados as part of her diet. Results - Labs - April 21: Complete blood count was normal with no anemia. - April 21: C-reactive protein was ne gative. - April 21: C. diff was negative. - March: Sodium was normal, potassium was low. - March: Creatinine was 1.24. - March: Blood glucose was 132 (non-f asting). - January: LDL cholesterol was 120 mg/ dL. - Undated: Vitamin D was low. - Imaging - MRI Brain (February): Negative. - MRI Left Knee (April 30): Reveale d moderate medial compartment osteoarthritis, bone marrow edema, a small Tran's cyst, a likely degenerative tear of the posterior horn of the medial meniscus, and a small tear of the posterior horn of the lateral meniscus. - CT Scan (undated): Showed colitis. [facility] Medical History (Updated 05/11/25 @ 10:19 by Connie Young MD) Blood in stool COVID-19 COVID-19 virus infection Restless legs syndrome (RLS) Migraine Hypersomnia Snoring Abnormal CT of brain Chronic migraine with aura PTSD (post-traumatic stress disorder) Bipolar disorder HPV (human papilloma virus) infection Restless leg syndrome Fibromyalgia Vitamin D deficiency Obesity Asthma Surgical History History of dilatation and curettage History of toe surgery Family History (Updated 04/21/25 @ 10:27 by Gisele Tapia CNP) Father Diabetes CVD (cardiovascular disease) Cancer Hypertension Slow to wake up after anesthesia Mother Diabetes CVD (cardiovascular disease) Cancer Crohn disease Maternal Grandmother Lung cancer Maternal Grandfather Gastric cancer Paternal Grandmother Ovarian cancer Paternal Grandfather Esophageal cancer Maternal Aunt Breast cancer Maternal Uncle Colon cancer Sister Mental health disorder Bipolar 1 disorder Slow to wake up after anesthesia Other Arthritis Social History Household Members: Children Housing: House 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 other at home: Yes (children) Do you presently have visiting nurse or other home services: No Alcohol intake: never Patient Tobacco Use Status: Former Tobacco user Tobacco use type: Cigarette Years Smoked: 2004 stopped e-Cigarette/Vaping Use: Never Used Second Hand Smoke Exposure: Yes service: No Current occupational status: employed Current occupation: [employer] Sexual orientation: Straight/Heterosexual Gender identity: Female Cognitive needs: No Hearing needs: No Vision needs: Yes (Glasses) Female Reproductive History Menstrual Age of Menarche: 13 Questionnaire Thrive Questionnaire Date Thrive assessed: 07/19/24 I am a: Patient What is your living situation today?: I have a steady place to live Within the past 12 months, did the food you bought not last and you didn't have the money to get more?: Often true Within the past 12 months, did you worry whether your food would run out before you got money to buy more?: Often true Do you have trouble paying for medicines?: No Do you have trouble getting transportation to medical appointments?: No Do you have trouble paying your heating and electricity bill?: Yes Do you have trouble taking care of your child, family member or friend?: No Do you have trouble with day-to-day activities such as bathing, preparing meals, shopping, managing finances, etc.?: No Are you currently unemployed and looking for a job?: No Are you interested in more education?: No Currently or been in a relationship where the following occur: I choose not to answer THRIVE Score: 3 SAMANTHA-7 AMB Questionnaire SAMANTHA-7 Date SAMANTHA - 7 assessed: 07/19/24 Source: Developed by Drs. Christian Raymond, Jennifer Liang, Pete Martinez and colleagues, with an educational chet from [employer]. Review of Systems Narrative Review of Systems - Musculoskeletal: Reports intermittent, stabbing pain in the left knee that a ffects her sleep. - Gastrointestinal: Reports a history of blood in the stool. - General: Reports nausea with prior use of tramadol. Physical exam (Primary Care) Vital Signs: Last Vital Signs Pulse 87 05/11/25 09:44 BP 104/72 05/11/25 09:44 Pulse Ox 97 05/11/25 09:44 Oxygen Delivery Method Room Air 05/11/25 09:44 BMI result Body Mass Index 42.2 Tobacco/Smoking Status: Tobacco use Status Tobacco use date assessed 01/19/25 05/11/25 09:46 Patient Tobacco Use Status Former Tobacco user 05/11/25 09:46 Tobacco use type Cigarette 05/11/25 09:46 e-Cigarette/Vaping Use Never Used 05/11/25 09:46 Thrive Assessment: Date of Thrive Assessment Date Thrive assessed 07/19/24 05/11/25 09:46 Currently or been in a relationship where the following occur: I choose not to answer Narrative Physical Exam - General: Morbidly obese female. Const General: alert; No acute distress Eyes Conjunctivae: conjunctivae normal Resp Auscultation: clear to auscultation bilaterally Cardio Rate: regular rate Rhythm: regular rhythm GI Inspection: Yes normal to inspection Extrem General: Yes normal to inspection and No edema Coding Level of Care Code Est Pt Level 4 (31771) Add On Problem Visit Only Diagnoses Impaired glucose tolerance R73.02 Morbid obesity E66.01 Gastroesophageal reflux disease without esophagitis K21.9 Esophagitis presence: without esophagitis Blood in stool K92.1 Tear of medial meniscus of left knee, current, unspecified tear type, subsequent encounter S83.242D Encounter type: subsequent encounter Laterality: left Meniscus tear of knee type: unspecified type Tear current or old: current Arthritis of knee, left M17.12 Mild intermittent asthma without complication J45.20 Asthma complication type: uncomplicated Asthma persistence: intermittent Asthma severity: mild Generalized anxiety disorder F41.1 Hypokalemia E87.6 Assessment & Plan Assessment & Plan (1) Impaired glucose tolerance: Code(s): R73.02 - Impaired glucose tolerance (oral) Category: Medical Plan: Decrease the amount of carbohydrate intake, pasta, bread, rice and potatoes are all sugar and that is aside from all the sweet stuff, remember that fruits are good but they are Sweet also. (2) Morbid obesity: Code(s): E66.01 - Morbid (severe) obesity due to excess calories Category: Medical Plan: Diet and exercise, patient follows up with weight management presently (3) GERD (gastroesophageal reflux disease): Code(s): K21.9 - Gastro-esophageal reflux disease without esophagitis Category: Medical Qualifiers: Esophagitis presence: without esophagitis Qualified Code(s): K21.9 - Gastro-esophageal reflux disease without esophagitis Plan: Avoid the foods that causes that usually spicy foods, tomato products, juices, coffee, soda and foods that your sensitive to. After eating do not lie down, allow 3-4 hours before in lie down. And keep the head of bed above 30 degrees to avoid the acid from going up. (4) Blood in stool: Code(s): K92.1 - Melena Category: Medical Plan: Patient has an upcoming colonoscopy under gastroenterology (5) Tear of medial meniscus of knee: Comment: 04/2025 MRI Moderate osteoarthritis of the medial compartment. Mild osteoarthritis of the patellofemoral compartment. 2. Bone marrow edema and cystic change involving the posterior aspect of the lateral femoral condyle. Small Tran's cyst. 3. Tear of the posterior horn of the medial meniscus, which is likely degenerative in nature. 4. Probable small tear involving the junction of the body and posterior horn of the lateral meniscus. Code(s): S83.249A - Other tear of medial meniscus, current injury, unspecified knee, initial encounter Category: Medical Qualifiers: Encounter type: subsequent encounter Laterality: left Meniscus tear of knee type: unspecified type Tear current or old: current Qualified Code(s): S83.242D - Other tear of medial meniscus, current injury, left knee, subsequent encounter Plan: Patient follows up with ortho had an MRI showing tear. will see orthopedic May 16, 2024 (6) Arthritis of knee, left: Code(s): M17.12 - Unilateral primary osteoarthritis, left knee Category: Medical Plan: MRI done showing arthritis (7) Asthma: Code(s): J45.909 - Unspecified asthma, uncomplicated Category: Medical Qualifiers: Asthma complication type: uncomplicated Asthma persistence: intermittent Asthma severity: mild Qualified Code(s): J45.20 - Mild intermittent asthma, uncomplicated Plan: Continue with the albuterol inhaler as needed (8) Generalized anxiety disorder: Comment: Hustle therapist every 2 weeks Code(s): F41.1 - Generalized anxiety disorder Category: Medical Plan: Continue with counseling and therapy (9) Hypokalemia: Code(s): E87.6 - Hypokalemia Category: Medical Plan Plan Patient was informed and verbally consented to the use of an ambient scribe for clinic note documentation during this visit. 1. Left Knee Pain / Osteoarthritis / Meniscal Tears The patient will follow up with her orthopedist on May 16 to discuss the recent MRI findings and further management plan. In the interim, she will defer starting new pain medications. Tylenol was recommended as a safe option for pain relief. Tramadol was not tolerated due to nausea, and gabapentin was declined due to concern for weight gain. 2. Morbid Obesity The patient will continue with diet and exercise, including walking. A prior authorization request for Zepbound will be resubmitted. If not approved, a 3- month trial of phentermine may be initiated to demonstrate failure of oral therapy, which could support future requests for injectable medications. The patient will be monitored for potential side effects of phentermine, such as increased blood pressure. The patient remains opposed to bariatric surgery. 3. Colitis / Hematochezia The patient is pending scheduling for a colonoscopy with gastroenterology and will follow up accordingly. 4. Hypokalemia Repeat electrolytes will be ordered to re-evaluate the patient's potassium level. The patient was counseled on increasing dietary intake of potassium-rich foods like bananas, avocados, and spinach. She was also advised to be cautious with NSAIDs. 5. Asthma Continue with the albuterol inhaler as needed. 6. Generalized Anxiety Disorder The patient will continue with counseling and therapy. Discussion Notes I reviewed the patient's recent left knee MRI results with her, explaining the findings of significant osteoarthritis, meniscal tears, and a Tran's cyst. We discussed pain management, and she prefers to wait for her orthopedic appointment on May 16 before starting new medications. I told her Tylenol would be a safe option, and we acknowledged her prior intolerance to tramadol and concerns about weight gain with gabapentin. We discussed her weight loss journey and her frustration with a previous provider who pushed for surgery. I informed her that I would resubmit the request for Zepbound and formulated a backup plan to trial phentermine for three months if denied, explaining that this could help build a case for insurance to cover injectable therapies later. We discussed that phentermine carries a risk of elevating blood pressure. I addressed the hypokalemia from her March lab work, ordering a repeat electrolyte panel and counseling her on potassium-rich foods. I advised her to be cautious with NSAID pain relievers. Finally, I strongly recommended she get an influenza vaccine given the current risks from flu, COVID-19, and RSV. Patient Instructions - Please go for your follow-up appointment with the orthopedic (bone and joint) specialist on May 16 to discuss your knee MRI results and treatment plan. - For knee pain, you can take Tylenol as directed. - Avoid using pain medications like Ibuprofen (Advil, Motrin) or Naproxen (Aleve) as they can be hard on your kidneys. - I have ordered new blood work to recheck your potassium levels. - Try to eat more foods that are high in potassium, such as bananas, avocados, spinach, and potatoes. - We are resubmitting the request for the Zepbound weight loss shot. - Follow up on scheduling your colonoscopy with the GI (stomach) doctor's office. - Please get your flu shot as soon as you can to stay protected during this flu season. - Continue with your counseling and therapy for anxiety. - Continue using your albuterol inhaler for asthma whenever you need it. Orders: Orders Comprehensive Met. Panel Today E87.6 - Hypokalemia Medications: New tirzepatide (weight loss) (Zepbound) for 4 weeks 2.5 mg (0.5 mL) subcut QWEEK 2 mL 2RF E66.01 - Morbid (severe) obesity due to excess calories
--- OUTSIDE RECORDS SUMMARY | 2025-05-11 10:16 | XMS_ITS | Continuity of Care Document ---
Author Organization [employer] [facility], [facility] Address [address] [place] [id number] Care Team Providers Care Sports Therapist Name Role Phone HIM CCA OTHER PO EMMAMARIUSZ Primary Care Provider Assessment Encounter Date Assessment Date Assessment LastModified by Organization Details LastModified Time 03/24/2025 03/24/2025 As noted, we were called to see this patient regarding concerns of Left knee pain. Evaluation in the field was performed by my marble coper colleague, as noted above, I provided real-time direction and supervision for this visit. Patient is having pain on her left knee after a fall last night. She states that she did not hit her head or lose consciousness. Patient having severe amount of pain as per medic. He is called 911 as the patient will need imaging. Patient is agreeable to go to [place] emergency department. I've called in an expect. [...] RxNorm Not Available [employer] - production 08:30:14 [id number] bacitraci n medicatio n Not available Not available Not available 03/24/2025 1291 RxNorm Not Available [employer] 08:30:14 Medications Name Sig Start Date Stop [...] % 102 /min 148/100 mm[Hg] Not Available [employer] 10:18:30 Social History None recorded. Functional Status None recorded. Mental Status None recorded. Family History Nothing Reported. Medical History No medical history recorded. Gynecological HistoryNo gynecological history recorded. Obstetrics History GPAL:G 0 P 0 0 0 0 Past Encounters Encounter ID Performer Location Encounter Start Date Encounter Closed Date Diagnosis/Indication Diagnosis SNOMED-CT Code Diagnosis ICD10 Code Diagnosis IMO Codes Diagnosis Note [id number] Micah Mabry MD [facility] ED Medical [facility] [address] [place] [address] 03/24/2025 10:18:26 03/24/2025 13:58:59 Pain of knee region [id number] M25.562 [id number] Health Concerns Section Related Observation LastModified by Organization Detai ls LastModified Time None Recorded Concern Status LastModified by Organization Details LastModified Time None Recorded Payers Encounter Date Sequence Insurance Name Policy Number Policy Silva Covered Member ID Silva Member ID Guarantor Name 03/24/2025 1 [facility] - DOS ON OR AFTER 2022 - DUAL ELIGIBLE - [employer] OPTIONS AND ONE CARE (MEDICARE REPLACEMENT/ADV ANTAGE - HMO) Denita Nguyen [id number] Denita Nguyen Notes Date Note Type Note [...] .................. .................. .................. .................. .................. .................. ............... Pharmacy Operations Manager Note From Todd Dupont: Dispatched to above [...] radial pulse, skin pink warm and dry. [facility] contacted, spoke with Dr. Mabry, advised of patient complaints and exam findings. [facility] agreed patient needs to be seen in the ER for imaging and further work up. Patient agrees with this plan. 911 contacted, [facility] responded. Verbal report given to [place] [facility], took over patient care, will transport [facility]. SC8 clear. EOR. .................. .................. .................. .................. .................. .................. .................. ............... [facility] Consulted: Micah Mabry .................. .................. .................. .................. .................. .................. .................. ............... Disposition: Fulfilled Micah Mabry MD [address] [facility],[address], [place], [address], [employer] 03/24/2025 13:29:53 OBGyn Episode No OBEpisode recorded.
--- OUTSIDE RECORDS SUMMARY | 2025-05-11 10:16 | XMS_ITS | Data Portability ---
Author Organization [employer] [facility], [facility] Address [address] [place] [id number] Care Team Providers Care Assistant Clinical Nurse Manager Name Role Phone HIM CCA OTHER PO EMMAMARIUSZ Primary Care Provider [phone] Assessment Encounter Date Assessment Date Assessment LastModified by Organization Details LastModified Time 03/24/2025 03/24/2025 As noted, we were called to see this patient regarding concerns of Left knee pain. Evaluation in the field was performed by my kiln packer colleague, as noted above, I provided real-time direction and supervision for this visit. Patient is having pain on her left knee after a fall last night. She states that she did not hit her head or lose consciousness. Patient having severe amount of pain as per medic. He is called 911 as the patient will need imaging. Patient is agreeable to go to [place] emergency department. I've called in an expect. [...] Not available 03/24/2025 1291 RxNorm Not Available [employer] 08:30:14 Medications Name Sig Start Date Stop [...] % 102 /min 148/100 mm[Hg] Not Available [employer] 5 10:18:30 Social History None recorded. Functional Status None recorded. Mental Status None recorded. Family History Nothing Reported. Medical History No medical history recorded. Gynecological HistoryNo gynecological history recorded. Obstetrics History GPAL:G 0 P 0 0 0 0 Past Encounters Encounter ID Performer Location Encounter Start Date Encounter Closed Date Diagnosis/Indication Diagnosis SNOMED-CT Code Diagnosis ICD10 Code Diagnosis IMO Codes Diagnosis Note [id number] Micah Mabry MD [facility] ED Medical [facility] [address] [place] [address] 03/24/2025 10:18:26 03/24/2025 13:58:59 Pain of knee region [id number] M25.562 [id number] Health Concerns Section Related Observation LastModified by Organization Detai ls LastModified Time None Recorded Concern Status LastModified by Organization Details LastModified Time None Recorded Advance Directives Directive None Recorded Payers Insurance Date Sequence Insurance Name Policy Number Policy Silva Covered Member ID Silva Member ID Guarantor Name 03/26/2025 1 [facility] - DOS ON OR AFTER 2022 - DUAL ELIGIBLE - [facility] OPTIONS AND ONE CARE (MEDICARE REPLACEMENT/ADV ANTAGE - HMO) Denita Nguyen [id number] Denita Nguyen Notes Date Note Type Note [...] .................. .................. .................. .................. .................. .................. ............... Kindergarten Assistant Note From Todd Dupont: Dispatched to above [...] radial pulse, skin pink warm and dry. [facility] [place], spoke with Dr. Mabry, advised of patient complaints and exam findings. [facility] [place] patient needs to be seen in the ER for imaging and further work up. Patient agrees with this plan. 911 contacted, [facility] responded. Verbal report given to [place] EMT, took over patient care, will transport [facility]. SC8 clear. EOR. .................. .................. .................. .................. .................. .................. .................. ............... [facility] Consulted: Micah Mabry .................. .................. .................. .................. .................. .................. .................. ............... Disposition: Fulfilled Micah Mabry MD [address] [facility],[address], [place], [phone], [employer], [employer] 03/24/2025 13:29:53 OBGyn Episode No OBEpisode recorded.
--- OUTSIDE RECORDS SUMMARY | 2025-05-11 10:16 | XMS_ITS | Encounter Summary ---
Author Organization [facility] Address [address] [place] [address] Encounters * CPT with [facility] at [facility] on 2025-03-24 Left knee in serious pain can't barely walk can't lay down can't stretch it out can't really do nothing at all. I was walking & my cat got in the way & I twist & turned to avoid stepping on her. Now in serious pain pain shooting down to my ankle. { reasonForRequest : , patientReports : , denies":[ Falls with head strike and LOC , Falls from a standing position, no LOC, patientis amnestic to the event , Falls with isolated injury and deformity noted to limb ,"Falls with inability to move post fall , Cool extremities after fall or injury ], chiefComplaints : Extremity Pain , pmh : Fibromyalgia, Rheumatoid Arthritis, Depression, Bipolar Disorder, Anxiety Disorder, Chronic Kidney Disease , nataly rgies : Ibuprofen, Bacitracin , otherAllergies :null, painAssessment&q uot;: Level 10 out of 10 , visitOutcome : , additionalComments": 49 y.o female complains of Extremity Pain\n\nSelf-referring. Near fall at 2 am this morning. Didn't see her cat, tripped over her and twisted her L knee in the process. Unsure if knee or leg or foot is swollen - reports \ I have thicker calves so it's hard to tell\ . Denies bruising or redness. Attempted to see if foot was warm but unable to due to pain. Pain extends from herknee down to her ankle. Rating pain \ 20/10\ . Unable to bear weight on that leg. Has nottaken any PRNs. Unable to take ibuprofen - CKD. Informed of inability to perform imaging if necessary, patient reports understanding. Doesn't take daily RA medication or anticoagulation. Requesting [facility] visit. \n\nI provided information on the mobile health provider response time and advised the patient and/or caregiver to monitor reported signs and symptoms. I discussed the warning signs of when to seek emergency care. } Dispatched to above address for knee pain. On arrival patient met [facility] at the door, using walker, unsteady gait, unable to bear weight on L leg, AOX4, airway patent, speaking in full sentences, good color, appears uncomfortable. Patient assisted to chair. Patient reports last night around 2-3 am shewas walking to the bathroom, tripped over her cat, did not fall but twisted her knee, felt a s nap has been having severe 20/10 pain radiating [...] rise and fall, lungs clear all grissom, abdomensoft non tender, no additional signs of injury, good radial pulse, skin pink warm and dry. [facility] contacted, spoke with Dr. Mabry, advised of patient complaints and exam findings. [facility] agreed patient needs to be seen in the ER for imaging and further work up. Patient agrees with this plan. 911 [address], [facility] responded. Verbal report given to [facility], took over patient care, will transport [facility]. [facility] clear. EOR. IV_(FLUIDS_AND/OR_MEDICATION), MEDICATION_IM, ORAL_MEDICATION, WOUND_CARE, ORTHOSTATIC_VITAL_SIGNS Written by Medical [facility] on 2025-03-24
--- OUTSIDE RECORDS SUMMARY | 2025-05-11 10:16 | XMS_ITS | Continuity of Care Document ---
Author Name [facility], Medical Address [address] [place] [id number] Organization Unknown Address [address] [place] [id number] Medications No known medications Problems No known problems
== END 2025-05-11 10:28 | disposition home or self-care (01) ==
LOC: HO.HMCH 09:43
PROVIDERS: PCP Internal Medicine; Visit Provider Internal Medicine
DX: R73.02 Impaired glucose tolerance (oral) (principal); E66.01 Morbid (severe) obesity due to excess calories; K21.9 Gastro-esophageal reflux disease without esophagitis; K92.1 Melena; S83.242D Other tear of medial meniscus, current injury, left knee, subsequent encounter; M17.12 Unilateral primary osteoarthritis, left knee; J45.20 Mild intermittent asthma, uncomplicated; F41.1 Generalized anxiety disorder; E87.6 Hypokalemia

== ENCOUNTER → 2025-05-11 09:42 | Outpatient (BNVA) | payer OTHER, SELFPAY | PROVIDERS: PCP Internal Medicine; Visit Provider Internal Medicine | DX: S83.242D Other tear of medial meniscus, current injury, left knee, subsequent encounter (principal); M17.12 Unilateral primary osteoarthritis, left knee; R73.02 Impaired glucose tolerance (oral); E66.01 Morbid (severe) obesity due to excess calories; K92.1 Melena; E87.6 Hypokalemia; J45.20 Mild intermittent asthma, uncomplicated; F41.1 Generalized anxiety disorder; Z87.891 Personal history of nicotine dependence | CPT/HCPCS: 99212 ==